=== PATIENT | male | born 1945 | race Caucasian/White ===

== ENCOUNTER 2019-08-28 09:26 | Outpatient (CLI) | payer OTHER, SELFPAY ==
[2019-08-28 10:49] LABS: Alanine Aminotransferase 18 U/L (4-50); Albumin Level 4.3 g/dL (3.5-5.1); Alkaline Phosphatase 68 U/L (38-126); Aspartate Amino Transferase 30 U/L (17-59); Blood Urea Nitrogen 28 mg/dL (9-20); Calcium 8.9 mg/dL (8.4-10.2); Carbon Dioxide 30 mmol/L (22-30); Chloride 103 mmol/L (98-107); Cholesterol 165 mg/dL (0-200); Estimated Glomerular Filt Rate > 60; Glucose 84 mg/dL (75-110); HDL Direct 49 mg/dL; Potassium 4.6 mmol/L (3.4-5.0); Sodium 139 mmol/L (137-145); Triglycerides 102 mg/dL (<150)
[2019-08-28 11:00] LABS: LDL Cholesterol Direct 92 mg/dL
[2019-08-28 11:16] LABS: Thyroid Stimulating Hormone 0.344 uIU/mL (0.465-4.680)
== END 2019-08-28 09:27 | disposition home or self-care (01) ==
PROVIDERS: PCP Emergency Medicine; Visit Provider Emergency Medicine
DX: E78.5 Hyperlipidemia, unspecified (principal); E05.90 Thyrotoxicosis, unspecified without thyrotoxic crisis or storm
CPT/HCPCS: 36415; 80053; 80061; 84443

== ENCOUNTER 2020-01-26 11:50 | Outpatient (CLI) | payer OTHER, SELFPAY ==
[2020-01-26 13:05] LABS: Thyroid Stimulating Hormone 0.175 uIU/mL (0.465-4.680)
== END 2020-01-26 11:51 | disposition home or self-care (01) ==
PROVIDERS: PCP Emergency Medicine; Visit Provider Emergency Medicine
DX: E05.90 Thyrotoxicosis, unspecified without thyrotoxic crisis or storm (principal)
CPT/HCPCS: 36415; 84443

== ENCOUNTER 2020-05-03 08:30 | Outpatient (CLI) | payer OTHER, SELFPAY ==
[2020-05-03 09:36] LABS: Free T4 Free Thyroxine 1.07 ng/mL (0.78-2.19); Thyroid Stimulating Hormone 0.502 uIU/mL (0.465-4.680)
[2020-05-05 06:33] LABS: Triiodothyronine T3 Free 3.2 pg/mL (2.3-4.2)
== END 2020-05-03 08:31 | disposition home or self-care (01) ==
PROVIDERS: PCP Emergency Medicine; Visit Provider Emergency Medicine
DX: E05.90 Thyrotoxicosis, unspecified without thyrotoxic crisis or storm (principal)
CPT/HCPCS: 36415; 84439; 84443; 84481

== ENCOUNTER → 2020-05-11 15:28 | Outpatient (CLI) | payer OTHER, SELFPAY ==
--- NOTE | ~2020-05-11 | XR_ITS ---
EXAMINATION: XR knee LT 2V DATE: 05/11/2020 15:42 INDICATION: Left knee pain and swelling. TECHNIQUE: 2 views of left knee were obtained. COMPARISON: None. FINDINGS: Bone alignment is normal. No fracture. There is mild tricompartmental osteoarthritis. There is a moderate-sized knee joint effusion. IMPRESSION: 1. Mild left knee osteoarthritis. 2. Moderate-sized left knee joint effusion. Reviewed, dictated and finalized at location A. [employer]
== END ==
PROVIDERS: PCP Emergency Medicine; Visit Provider Emergency Medicine
DX: S89.92XA Unspecified injury of left lower leg, initial encounter (principal); M17.12 Unilateral primary osteoarthritis, left knee; M25.462 Effusion, left knee
CPT/HCPCS: 73560

== ENCOUNTER 2020-11-04 08:57 | Outpatient (CLI) | payer OTHER, SELFPAY ==
[2020-11-04 09:35] LABS: Alanine Aminotransferase 19 U/L (4-50); Albumin Level 4.3 g/dL (3.5-5.1); Alkaline Phosphatase 70 U/L (38-126); Anion Gap 4 mmol/L (8-16); Aspartate Amino Transferase 31 U/L (17-59); Bilirubin,Total 1.4 mg/dL (0.2-1.3); Blood Urea Nitrogen 24 mg/dL (9-20); Calcium 9.1 mg/dL (8.4-10.2); Carbon Dioxide 26 mmol/L (22-30); Chloride 107 mmol/L (98-107); Estimated Glomerular Filt Rate 59; Glucose 91 mg/dL (65-110); Potassium 4.5 mmol/L (3.4-5.0); Sodium 137 mmol/L (137-145)
[2020-11-04 10:04] LABS: Prostate Specific Antigen 3.3 ng/mL (< OR = 4.0)
== END 2020-11-04 08:58 | disposition home or self-care (01) ==
LOC: ANHLAB 09:00
PROVIDERS: PCP Emergency Medicine; Visit Provider Emergency Medicine
DX: Z13.220 Encounter for screening for lipoid disorders (principal); Z12.5 Encounter for screening for malignant neoplasm of prostate
CPT/HCPCS: 36415; 80053; 84153; G0103

== ENCOUNTER 2021-09-09 15:50 | Inpatient (IN) | payer OTHER, SELFPAY ==
--- NOTE | ~2021-09-09 | NM_ITS ---
EXAMINATION: NM sharon stress w perfusion DATE: 09/15/2021 09:25 INDICATION: Abnormal EKG. Atrial fibrillation, ventricular tachycardia. TECHNIQUE: Rest images were obtained following intravenous administration of 10.1 mCi Tc99m tetrofosm in (Myoview). The patient was infused intravenously with Lexiscan (Regadenoson). Then, 23.3 mCi Tc99m tetrofosmin (Myoview) was administered intravenously, and stress images were obtained in supine posi tion. Data was reconstructed into short axis and horizontal and vertical long axis SPECT images. [place] d SPECT images were also obtained. COMPARISON: None. FINDINGS: Small region of mild decreased perfusion at the apical and apical lateral segment on the st ress images. Additional small region of equivocal decreased perfusion at the apical septal, mid anter oseptal and mid inferoseptal segments. The perfusion defects at both more severe and more extensive o n the rest images suggesting this may be artifactual although small infarcts cannot be excluded. No r eversible perfusion defects abnormality to suggest ischemia. There is normal left ventricular chambe r size, wall motion and ejection fraction. Left ventricular ejection fraction measures 54%. IMPRESSION: 1. Small mild perfusion defect at the apical and apical lateral segments and additional clinical data small mild perfusion defect at the apical septal anteroseptal, mid anteroseptal and mid inferoseptal segments on stress images which appears smaller and less severe than the perfusion defects on the re st images differential would include either infarct or attenuation artifact. No reversible ischemia. 2. Left ventricular ejection fraction measuring 54%. Reviewed, dictated and finalized at location A. IMPRESSION: 1. Small mild perfusion defect at the apical and apical lateral segments and ad ditional clinical data small mild perfusion defect at the apical septal anteros eptal, mid anteroseptal and mid inferoseptal segments on stress images which ap pears smaller and less severe than the perfusion defects on the rest images dif ferential would include either infarct or attenuation artifact. No reversible i schemia. 2. Left ventricular ejection fraction measuring 54%.
--- NOTE | ~2021-09-09 | MR_ITS ---
EXAMINATION: MR MRCP wo/w con/w 3D wo ind DATE: 09/11/2021 13:50 INDICATION: Right upper quadrant pain TECHNIQUE: Magnetic resonance imaging (MRI) of the abdomen was performed without and with intravenous contrast. Sequences included coronal T2-weighted SS-FSE ARC, coronal T2-weighted FS SS-FSE, coronal T2-weighted 2D FS FIESTA, Water:Coronal LAVA-Flex, sagittal T2-weighted SS-FSE ARC, axial SSFSE ARC, axial 3D DualEcho, axial DWI B=600, axial T1-weighted LAVA, FAT:Coronal LAVA-Flex, and coronal in and opposed phase LAVA-Flex. Thick-slab T2-weighted FRFSE-XL images were obtained for magnetic resonance cholangiopancreatography (MRCP). Maximum intensity projection 3-D reconstructions of the volumetric data were created by the technologist. Postcontrast sequences included a time course of axial T1-weig hted LAVA, FAT:Coronal LAVA-Flex, coronal in and opposed phase LAVA-Flex, and Water:Coronal LAVA-Flex . COMPARISON: CT, 09/09/2021 CONTRAST: Multihance, 17 cc FINDINGS: ABDOMEN MRI: There are small pleural effusions. There is a 2.0 x 1.9 cm cyst with thin septation in t he right hepatic lobe. The spleen and adrenal glands are normal. Stones are present in the nondistend ed gallbladder. There is a moderate amount of perihepatic fluid which tracks into the bilateral anter ior pararenal spaces as well as in the perihepatic and perisplenic spaces. The pancreas is mildly exp anded but appears to demonstrate uniform although decreased, enhancement. Cysts of the kidneys measur e up to 5.3 cm on the right. No abnormal enhancement is present after contrast administration. ABDOMEN MRCP: There is no intrahepatic or extrahepatic biliary dilatation. The pancreatic duct is not well visualized in the body and tail, likely due to pancreatic edema. There are no stones or strictu re of the common bile duct. IMPRESSION: 1. MRI findings consistent with acute interstitial edematous pancreatitis with acute peripancreatic f luid collection. 2. Cholelithiasis without evidence of cholecystitis. Reviewed, dictated and finalized at location A. IMPRESSION: 1. MRI findings consistent with acute interstitial edematous pancreatitis with acute peripancreatic fluid collection. 2. Cholelithiasis without evidence of cholecystitis.
--- NOTE | ~2021-09-09 | XR_ITS ---
XR chest 1V portable 09/14/2021 00:15 Indication: Shortness of breath Procedure: AP portable chest Comparison: 08/11/2013 Findings: Borderline heart size. Mild interstitial edema. Small left pleural effusion. There is ather osclerosis of the aorta. No pneumothorax. No acute osseous abnormality. Impression: 1: Mild interstitial edema with small left pleural effusion. Reviewed, dictated and finalized at location A. Impression: 1: Mild interstitial edema with small left pleural effusion.
--- NOTE | ~2021-09-09 | CT_ITS ---
EXAMINATION: CT abdomen pelvis w con DATE: 09/09/2021 17:05 INDICATION: Abdominal pain radiating to back. History kidney stones. TECHNIQUE: Computed tomography (CT) of the abdomen and pelvis was performed with 100 CC Omnipaque 300 intravenous contrast. Automated exposure control and iterative reconstruction technique were employe d. Exam dose: 486.40 mGy-cm total exam DLP. COMPARISON: None. FINDINGS: Bilateral peripheral 4 mm middle lobe nodule. Calcified middle lobe pulmonary granuloma Mild discoid atelectasis in both lower lobes. Mild to moderate emphysematous changes. Normal heart size. Coronary artery calcifications. No pericardial effusion. Cholelithiasis is noted, including 1.8 cm calcified stone in a phrygian cap. Gallbladder wall thickness is within normal limit s. There is however mild pericholecystic fluid or fat stranding which may indicate acute cholecystiti s. Clinical correlation is advised. Radionuclide hepatobiliary scan may be of assistance in diagnosis of acute cholecystitis if clinically appropriate. There is hepatic steatosis. Approximately 1.8 cm hepatic cyst. Normal splenic size. There is diffuse peripancreatic fluid and fat stranding, compatible with acute uncomplicated intersti tial pancreatitis. There are several pancreatic calcifications consistent with chronic pancreatitis. No bile duct or pancreatic duct dilatation. Normal morphology of the adrenal glands. 5.5 cm posterior exophytic right renal cyst; additional 1.5 cm, 7 mm and 2.7 cm and additional very s mall right renal cysts. Several left renal cysts, including one larger 1.9 cm cyst. No urinary tract calculus or hydroureteronephrosis. Prominent prostate enlargement and calcifications. The urinary bladder appears unremarkable. There is calcification of the abdominal aorta and iliac arteries. No abdominal aortic aneurysm. No in traperitoneal or retroperitoneal or pelvic mass lesion or adenopathy or ascites. There are numerous diverticula of the sigmoid and to a lesser extent descending colon; no CT evidence of diverticulitis. The appendix is not visualized. No bowel obstruction or intraperitoneal free air. Small fat-containing right inguinal hernia. IMPRESSION: Acute uncomplicated interstitial pancreatitis Cholelithiasis; cannot exclude acute cholecystitis; clinical correlation is advised. Radionuclide hep atic there is scan may be of assistance. Hepatic steatosis 1.8 cm hepatic cyst Bilateral renal cysts Diverticulosis of left colon; no CT evidence of diverticulitis Prostate enlargement and calcifications Mild fat-containing right inguinal hernia 4 mm middle lobe nodule Mild to moderate emphysema Reviewed, dictated and finalized at Location A. Reviewed, dictated and finalized at location A. IMPRESSION: Acute uncomplicated interstitial pancreatitis Cholelithiasis; cannot exclude acute cholecystitis; clinical correlation is adv ised. Radionuclide hepatic there is scan may be of assistance. Hepatic steatosis 1.8 cm hepatic cyst Bilateral renal cysts Diverticulosis of left colon; no CT evidence of diverticulitis Prostate enlargement and calcifications Mild fat-containing right inguinal hernia 4 mm middle lobe nodule Mild to moderate emphysema
[2021-09-09 16:06] VITALS: BP 179/130; PULSE 82; RESP 16; TEMP 35.8; O2SAT 100
[2021-09-09 16:32] LABS: Basophils Absolute Auto 0.1 K/mm3 (0.0-0.1); Basophils Percent Auto 0.4 % (0.2-1.2); Eosinophils Percent Auto 0.3 % (0-4.4); Hematocrit 54.3 % (42.0-52.0); Hemoglobin 18.4 g/dL (14.0-18.0); Immature Granulocyte Absolute 0.05 K/mm3 (0.00-0.031); Immature Granulocyte Percent A 0.4 % (0-0.5); Lymphocytes Percent Auto 7.7 % (18.3-44.2); Mean Corpuscular HGB Conc 33.9 g/dl (32-36); Mean Corpuscular Hemoglobin 31.6 pg (26-34); Mean Corpuscular Volume 93.3 fl (80-100); Mean Platelet Volume 11.1 fl (7.4-10.4); Monocytes Absolute Auto 0.7 K/mm3 (0.1-0.6); Monocytes Percent Auto 6.2 % (2.6-8.5); Neutrophils Absolute Auto 9.9 K/mm3 (1.3-6.7); Platelet Count Result 173 k/mm3 (150-375); Red Blood Count 5.82 M/mm3 (4.6-6.20); Red Cell Distribution Width 13.7 % (11.5-14.5); White Blood Count 11.7 K/mm3 (4.5-10.0)
[2021-09-09 16:35] VITALS: BP 165/98; PULSE 91; RESP 20; TEMP 36.3; O2SAT 99
[2021-09-09 16:38] VITALS: TEMP 36.3
[2021-09-09 16:43] LABS: Appearance Urine Clear (Clear); Bilirubin Urine 3+ (Negative); Blood Urine Trace-lysed (Negative); Color Urine Amber (Yellow); Glucose Urine UA Trace mg/dL (Negative); Ketones Urine 1+ mg/dL (Negative); Leukocyte Esterase Ur Negative LEU/UL (Negative); Nitrate Urine Negative (Negative); Protein Urine 2+ mg/dL (Negative); Specific Grav Ur >= 1.030 (1.001-1.035); Urobilinogen Urine 0.2 mg/dL (<2.0)
[2021-09-09] MEDS: SODIUM CHLORIDE 0.9% IV 1,000 ML 999 ML IV CONT (16:44)
[2021-09-09] MEDS: ONDANSETRON INJ 4 MG/2 ML VIAL IV PUSH (16:44)
[2021-09-09 16:45] LABS: Alanine Aminotransferase 350 U/L (6-50); Albumin Level 4.5 g/dL (3.5-5.1); Alkaline Phosphatase 208 U/L (38-126); Anion Gap 9 mmol/L (8-16); Aspartate Amino Transferase 267 U/L (17-59); Bilirubin,Total 8.2 mg/dL (0.2-1.3); Blood Urea Nitrogen 22 mg/dL (9-20); Calcium 9.3 mg/dL (8.4-10.2); Carbon Dioxide 26 mmol/L (22-30); Chloride 105 mmol/L (98-107); Estimated CRCL calculation 48 ml/min; Estimated Glomerular Filt Rate 54; Glucose 176 mg/dL (65-110); Potassium 4.2 mmol/L (3.4-5.0); Sodium 140 mmol/L (137-145)
[2021-09-09] MEDS: MORPHINE SULFATE (*CRX) 4 MG/ML INJ IV PUSH ×2 (16:45→18:42)
--- NOTE | 2021-09-09 17:00 | ED.ABDPAIN ---
HPI - Abdominal Pain General Chief Complaint: Abdominal Pain Stated Complaint: flank pain Time Seen by Provider: 09/09/21 16:27 Source: RN notes reviewed History of Present Illness HPI narrative: Patient presents emergency room from home for abdominal pain. Patient states symptoms began this morning. The pain is located in the mid abdomen and radiates into the bilateral back pain described as aching in nature states has been associated with nausea and vomiting. Denies any fevers or chills chest pain shortness of breath diarrhea or any other symptoms. States he not taking medication for the pain at home states he does have a history of previous kidney stones and this feels similar to past kidney stones Related Data Home Medications Medication Instructions Recorded Confirmed apixaban 5 mg tablet (Eliquis) 5 mg PO BID 05/05/19 11/10/20 aspirin 81 mg tablet,delayed 81 mg PO DAILY 05/05/19 11/10/20 release (Adult Low Dose Aspirin) Allergies Allergy/AdvReac Type Severity Reaction Status Date / Time No Known Allergies Allergy Unverified 01/29/15 13:27 Review of Systems Review of Systems: Gen.: Denies fevers or chills ENT: Denies congestion Respiratory: Denies shortness of breath or cough CV: Denies chest pain or palpitations GI: See HPI denies burning, urgency, frequency or hematuria Musculoskeletal: Denies back pain or muscle pain Neuro: Denies numbness, tingling, weakness or focal weakness Skin: Denies rash Except as documented, all other systems reviewed and negative [facility] Past Medical History Medical History (Updated 09/09/21 @ 17:44 by Benito Sheppard DO) Afib Screening PSA (prostate specific antigen) Family History Family History Mother Family history of malignant neoplasm of uterus, Onset Age: 52 Patient's mother is Father Patient's father is , Onset Age: 84 Acute myocardial infarction, Onset Age: 84 Social History Social History Smoking status: Former smoker Alcohol intake: never Exam Narrative: APPEARANCE: No acute distress, nontoxic, resting in bed HEENT: Normocephalic, atraumatic, OMM RESPIRATORY: No respiratory distress, clear to auscultation bilaterally with no rhonchi wheezing or rales CARDIOVASCULAR: RRR s murmur ABDOMINAL: Soft nondistended diffusely tender to palpation no rebound or guarding no flank tenderness MUSCULOSKELETAl: Moves all extremities. No clubbing, cyanosis or edema. NEURO: Awake and alert. Following commands, speech normal, no focal deficits SKIN:: Warm, dry. 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 Baker presentation work-up agrees with admission at this time Discussed with Dr. Ronquillo agrees with admission with patient started on Zosyn request GI consult Discussed Dr. Alvarez agrees with consult Discussed with patient and family results of workup and diagnosis. Discussed need for admission. Patient and family understand and agree to current treatment plan Vital Signs Vital signs: Vital Signs Temperature 96.5 F L 09/09/21 16:06 Pulse Rate 82 09/09/21 16:06 Respiratory Rate 16 09/09/21 16:06 Blood Pressure 179/130 H 09/09/21 16:06 Pulse Oximetry 100 09/09/21 16:06 Oxygen Delivery Room Air 09/09/21 16:06 Temperature 97.4 F L 09/09/21 16:38 Pulse Rate 91 09/09/21 16:35 Respiratory Rate 20 09/09/21 16:35 Blood Pressure 165/98 H 09/09/21 16:35 Pulse Oximetry 99 09/09/21 16:35 Oxygen Delivery Room Air 09/09/21 16:06 MDM - Abdominal Pain Lab Data Result diagrams: 09/09/21 16:19 09/09/21 16:19
[2021-09-09 17:01] LABS: Calcium Oxalate Crystals Urine Present /hpf; Mucus Urine Rare /lpf; RBC Urine 0-2 /hpf (0-2); Squamous Epithelial Cell Urine Rare /hpf (Few); WBC Urine 0-3 /hpf
[2021-09-09 17:02] LABS: Add Urine Microscopic? YES
--- NOTE | 2021-09-09 17:03 | PC.NURSE ---
malathi alanis. friend/ ride
[2021-09-09 17:37] LABS: Lipase 17273 U/L (23-300)
[2021-09-09 17:48] LABS: Ethanol < 10 mg/dL (<10)
--- NOTE | 2021-09-09 18:06 | PC.NURSE ---
Patient care report called to YE Rossi. All questions answered at this time.
--- NOTE | 2021-09-09 18:15 | PM.IMHP ---
H&P: HPI History of Present Illness Date/Time: 09/09/21 18:15 Chief Complaint: Abdominal pain. Narrative: This is a very pleasant 75-year-old male with history of kidney stones and paroxysmal atrial fibrillation on anticoagulation who presented to the emergency department via private vehicle for evaluation of abdominal pain. He was in his usual state of health this morning and in fact played pickleball mid morning. After the game he had pancakes for breakfast and within a couple of hours he developed sudden onset of diffuse upper abdominal pain. It has been constant since the outset however it does come and go in waves of intensity. The pain is described as aching though it is occasionally sharp and shooting. He has not been able to identify any significant aggravating or alleviating factors. Associated symptoms include nausea, vomiting, and dry heaves. Initially he thought that he may be passing another kidney stone as the pain is similar however CT of the abdomen and pelvis instead showed acute pancreatitis and cholelithiasis and he is being admitted in this setting. He has no history of gallbladder disease or pancreatitis. He denies significant alcohol use. Review of Systems Review of Systems: Twelve systems were reviewed. No fever, chills, or sweats. He denies chest pain, pleuritic pain, and palpitations. No pleuritic pain or shortness of breath. He denies hematemesis. He denies significant indigestion symptoms but has had some belching and abdominal distension today. Urine has been a darker over the last couple of days but he denies dysuria and hematuria. Except as documented, all other systems were reviewed and are negative. [facility] Past Medical History Medical History (Updated 09/09/21 @ 20:33 by Lili Flores PA-C) Chronic anticoagulation Kidney stones Paroxysmal atrial fibrillation Surgical History Surgical History (Updated 09/09/21 @ 20:29 by Lili Flores PA-C) History of appendectomy History of colonoscopy with polypectomy History of vasectomy Family History Family History Mother Family history of malignant neoplasm of uterus, Onset Age: 52 Patient's mother is Father Patient's father is , Onset Age: 84 Acute myocardial infarction, Onset Age: 84 Social History Social History (Updated 09/09/21 @ 20:30 by Lili Flores PA-C) Social History: Surrogate decision maker: Mikayla Lema, sister. Code status: Full code. Smoking status: Former smoker Alcohol intake: current Alcohol use details: Rare alcohol use in moderation. Substance use: never Living arrangements: alone Occupation/Education: retired Spiritual care concerns: No Meds Home Medications and Allergies Home Medications Medication Instructions Recorded Confirmed Type apixaban 5 mg tablet (Eliquis) 5 mg PO BID 05/05/19 11/10/20 History Allergies Allergy/AdvReac Type Severity Reaction Status Date / Time No Known Allergies Allergy Unverified 09/09/21 18:36 Vital Signs Vital Signs - 24 hr 09/09/21 16:06 09/09/21 16:35 09/09/21 16:38 Temperature 96.5 F L 97.4 F L 97.4 F L Pulse Rate 82 91 Respiratory Rate 16 20 Blood Pressure 179/130 H 165/98 H Pulse Oximetry 100 99 Oxygen Delivery Room Air 09/09/21 18:35 09/09/21 19:44 Temperature 97.6 F 97.2 F L Pulse Rate 67 125 H Respiratory Rate 18 18 Blood Pressure 160/108 H 179/98 H Pulse Oximetry 100 93 Oxygen Delivery Exam Narrative: General: Well-developed male standing at the side of the bed. He appears uncomfortable due to pain. Weight: 84 kg. BMI: 25.9. HEENT: PERRL, EOMI. Sclerae anicteric. Tacky mucous membranes. Neck: Supple. Respiratory: Lungs are clear to auscultation bilaterally. Cardiovascular: Irregularly irregular rate and rhythm. Gastrointestinal: Abdomen is soft and nondistended with positive bowel sounds. He
--- NOTE | 2021-09-09 18:20 | ADMGEN ---
This patient, Memo Soto, was admitted to Medical Room 258-. Patient/family oriented to hospital policies and general routines including ID bracelet, bed and alarms, visiting hours, pain management, procedures, bathroom and other care routines, personal items, smoking policy, room service/diet, and visiting hours. Information on how to activate the Rapid Response Team has been discussed. Patient/Family are encouraged to report perceived risks to care and to ask questions if they do not understand what they are told or what they should do.
[2021-09-09] MEDS: SODIUM CHLORIDE 0.9% IV 1,000 ML 150 ML IV CONT (18:27)
[2021-09-09 18:35] VITALS: BP 160/108; PULSE 67; RESP 18; TEMP 36.4; O2SAT 100
[2021-09-09 19:44] VITALS: BP 179/98; PULSE 125; RESP 18; TEMP 36.2; O2SAT 93
[2021-09-09] MEDS: MORPHINE SULFATE (*CRX) 2 MG/ML INJ IV PUSH (22:35)
[2021-09-10] MEDS: SODIUM CHLORIDE 0.9% IV 1,000 ML 150 ML IV CONT ×3 (01:40→17:44)
[2021-09-10] MEDS: hydrALAZINE HCL 20 MG/ML VIAL 10 MG IV PUSH ×3 (03:54→18:45)
[2021-09-10 04:19] VITALS: BP 180/118; PULSE 70; RESP 17; TEMP 37.2; O2SAT 97
[2021-09-10] MEDS: SIMETHICONE 80 MG TAB.CHEW PO ×2 (04:35→22:46)
[2021-09-10 05:40] LABS: Albumin Level 4.5 g/dL (3.5-5.1); Alkaline Phosphatase 214 U/L (38-126); Anion Gap 10 mmol/L (8-16); Aspartate Amino Transferase 178 U/L (17-59); Bilirubin,Total 6.3 mg/dL (0.2-1.3); Blood Urea Nitrogen 22 mg/dL (9-20); Calcium 8.5 mg/dL (8.4-10.2); Carbon Dioxide 20 mmol/L (22-30); Chloride 110 mmol/L (98-107); Estimated CRCL calculation 56 ml/min; Estimated Glomerular Filt Rate > 60; Glucose 154 mg/dL (65-110); Magnesium 1.8 mg/dL (1.6-2.3); Potassium 4.4 mmol/L (3.4-5.0); Sodium 140 mmol/L (137-145)
[2021-09-10] MEDS: MORPHINE SULFATE (*CRX) 2 MG/ML INJ IV PUSH ×5 (05:58→22:46)
[2021-09-10 05:59] LABS: Basophils Percent Auto 0.1 % (0.2-1.2); Hematocrit 55.8 % (42.0-52.0); Hemoglobin 18.5 g/dL (14.0-18.0); Immature Granulocyte Absolute 0.06 K/mm3 (0.00-0.031); Immature Granulocyte Percent A 0.4 % (0-0.5); Lymphocytes Percent Auto 2.5 % (18.3-44.2); Mean Corpuscular HGB Conc 33.2 g/dl (32-36); Mean Corpuscular Hemoglobin 31.6 pg (26-34); Mean Corpuscular Volume 95.4 fl (80-100); Mean Platelet Volume 11.3 fl (7.4-10.4); Monocytes Absolute Auto 0.8 K/mm3 (0.1-0.6); Monocytes Percent Auto 4.9 % (2.6-8.5); Neutrophils Absolute Auto 14.8 K/mm3 (1.3-6.7); Neutrophils Percent Auto 92.1 % (45.5-73.1); Nucleated Red Blood Cells Perc 0.1 % (0.0-0.2); Platelet Count Result 186 k/mm3 (150-375); Red Blood Count 5.85 M/mm3 (4.6-6.20); Red Cell Distribution Width 13.9 % (11.5-14.5)
[2021-09-10 06:15] LABS: Thyroid Stimulating Hormone Reflex 0.037 uIU/mL (0.465-4.68)
[2021-09-10 06:18] VITALS: BP 162/90
[2021-09-10 06:30] LABS: Hepatitis B Surface Antigen Negative (Negative)
[2021-09-10 06:31] LABS: Alanine Aminotransferase 277 U/L (6-50)
[2021-09-10 06:38] LABS: HAV RESULT Negative (Negative)
[2021-09-10 06:40] LABS: Lipase 5279 U/L (23-300)
[2021-09-10 06:43] LABS: Hepatitis C Virus Antibody Negative (Negative)
[2021-09-10 07:27] LABS: Hemoglobin A1C 5.7 % (<5.7)
[2021-09-10 07:37] LABS: Free T4 Free Thyroxine Reflex 1.52 ng/dL (0.78-2.19)
[2021-09-10 10:09] LABS: Hepatitis B Core IgM Result Negative (Negative)
[2021-09-10 10:26] LABS: Total Triiodothyronine (T3) 1.12 NG/ML (0.97-1.69)
--- NOTE | 2021-09-10 13:29 | WPDGICN ---
Assessment and Plan Assessment and plan (1) Gallstone pancreatitis: Code(s): K85.10 - Biliary acute pancreatitis without necrosis or infection Status: Acute Assessment and Plan: presentation consistent of GS pancreatitis no obvious bile duct dilation but given elevated bilirubin will get MRCP to assess biliary duct to rule out stones, etc could be also from cholecystitis, surgery to evaluate on antibiotics, feeling better but still some pain (2) Elevated liver enzymes: Code(s): R74.8 - Abnormal levels of other serum enzymes Status: Acute Assessment and Plan: denies etoh GB/biliary source trend lft's hepatitis panel negative (3) Transaminitis: Code(s): R74.01 - Elevation of levels of liver transaminase levels Status: Acute (4) Cholelithiasis: Code(s): K80.20 - Calculus of gallbladder without cholecystitis without obstruction Status: Acute (5) Chronic anticoagulation: 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 Status: Acute Assessment and Plan: hold anticoagulation since patient will require intervention (6) Acute cholecystitis: Code(s): K81.0 - Acute cholecystitis Status: Acute (7) Leukocytosis: Code(s): D72.829 - Elevated white blood cell count, unspecified Status: Acute Assessment and Plan: on abx (8) Paroxysmal atrial fibrillation: Code(s): I48.0 - Paroxysmal atrial fibrillation Status: Acute GI Consult Note Consult date/time: 09/10/21 13:29 GS pancreatitis, elevated liver enzymes HPI: Memo Soto is a 75 year old male with?history of kidney stones and paroxysmal atrial fibrillation on eliquis who presented to the emergency department via private vehicle for evaluation of new onset of severe abdominal pain. Yesterday he played pickleball, then had pancakes for breakfast and within a couple of hours he developed severe pain in upper abdominal pain with radiation to his back, pain was different location from his regular kidney stone. Pain was sharp and shooting, also had nausea and vomiting. Blood work suggestive of gallstone pancreatitis with lipase 17k, bili 8 and elevated transaminases, denies alcohol use or previous episode of pancreatitis.? CT scan reviewed and showed acute uncomplicated interstitial pancreatitis, cholelithiasis, hepatic steatosis, diverticulosis of left colon. Never had EGD, had colonoscopy about 5 years ago. Review of Systems Constitutional: Constitutional: Denies difficulty sleeping Eyes: Eyes: Reports no additional eye complaints ENT: Reports Normal hearing present Cardiovascular: Cardiovascular: Denies chest pain Respiratory: Respiratory: Denies chest congestion Gastrointestinal: Gastrointestinal: Reports abdominal pain, Reports nausea and Reports vomiting Genitourinary: Comments: dark urine Musculoskeletal: Musculoskeletal: Reports back pain Integumentary/Breasts: Skin/Breast: Denies dry skin Neurologic: Denies Abnormal speech present Psychiatric: Psychiatric: Denies anxiety [facility] Past Medical History Medical History (Updated 09/10/21 @ 13:38 by Davis Gordon MD) Chronic anticoagulation Elevated liver enzymes Gallstone pancreatitis Kidney stones Leukocytosis Paroxysmal atrial fibrillation Surgical History Surgical History (Updated 09/09/21 @ 20:29 by Lili Flores PA-C) History of appendectomy History of colonoscopy with polypectomy History of vasectomy Family History Family History Mother Family history of malignant neoplasm of uterus, Onset Age: 52 Patient's mother is Father Patient's father is , Onset Age: 84 Acute myocardial infarction, Onset Age: 84 Social History Social History (Updated 09/09/21 @ 20:30 by Lili Flores PA-C) Social History: Surrogate decision maker: Ana
[2021-09-10 14:00] VITALS: BP 139/116; PULSE 45; RESP 20; TEMP 36.7; O2SAT 98
--- NOTE | 2021-09-10 15:18 | PM.CNGS ---
Assessment and Plan Assessment and plan (1) Gallstone pancreatitis: Code(s): K85.10 - Biliary acute pancreatitis without necrosis or infection Status: Acute Assessment and Plan: I have reviewed the CT and discussed the findings with the patient. He has evidence of acute pancreatitis. He does not have a prior history of heavy alcohol use, therefore gallbladder seems the most likely origin. Continue NPO and IV hydration to allow pancreatitis to resolve. Discussed with patient that I would recommend proceeding with laparoscopic cholecystectomy once pancreatitis has resolved. He was on blood thinners, therefore surgery will have to be delayed 1-2 days regardless. Await further evaluation by GI for elevated liver enzymes and hyperbilirubinemia. (2) Cholelithiasis: Code(s): K80.20 - Calculus of gallbladder without cholecystitis without obstruction Status: Acute (3) Elevated liver enzymes: Code(s): R74.8 - Abnormal levels of other serum enzymes Status: Acute (4) Paroxysmal atrial fibrillation: Code(s): I48.0 - Paroxysmal atrial fibrillation Status: Acute History of Present Illness Consult details Consult date: 09/10/21 Reason for consult: other (Gallstone pancreatitis) Requesting physician: Benito Sheppard DO Narrative: This is a 75-year-old man who I am asked to see for gallstone pancreatitis. He presented to the emergency department on 09/09/2021 with acute onset of upper abdominal pain radiated to the back. He states this started around noon yesterday. He had played pickleball the morning and then ate breakfast afterwards. Couple hours later he started having this pain. He thought it might be a kidney stone because he has had kidney stones in the past. He was experiencing some nausea and vomiting as well. He denied any fever or chills. He went to [facility] admission leak, but then was directed to the emergency department for further workup. He does not recall any symptoms like this in the past, but does state that he has had a little more bloating and gas over the past month. A CT in the emergency department showed evidence of acute interstitial pancreatitis and cholelithiasis. The patient was then admitted for further treatment. Review of Systems Review of Systems: All systems reviewed & are unremarkable except as noted in HPI and below Constitutional: Constitutional: Denies chills and Denies fever(s) Eyes: Eyes: Denies change in vision ENT: Denies hearing loss, Denies neck pain and Denies sore throat Cardiovascular: Cardiovascular: Denies chest pain and Denies dyspnea Respiratory: Respiratory: Denies cough, Denies dyspnea and Denies wheezing Gastrointestinal: Gastrointestinal: Reports as per HPI Genitourinary: Genitourinary: Denies hematuria and Denies dysuria Musculoskeletal: Musculoskeletal: Denies arthralgias, Denies joint swelling and Denies neck pain Allergic/Immunologic: Allergic/Immunologic: Denies wheezing [facility] Past Medical History Medical History Chronic anticoagulation Elevated liver enzymes Gallstone pancreatitis Kidney stones Leukocytosis Paroxysmal atrial fibrillation Surgical History Surgical History History of appendectomy History of colonoscopy with polypectomy History of vasectomy Family History Family History Mother Family history of malignant neoplasm of uterus, Onset Age: 52 Patient's mother is Father Patient's father is , Onset Age: 84 Acute myocardial infarction, Onset Age: 84 Social History Social History Social History: Surrogate decision maker: Mikaylamisty Lema, sister. Code status: Full code. Smoking status: Former smoker Alcoh
--- NOTE | 2021-09-10 15:48 | P.PNIM_ITS ---
Progress Note: A&P Assessment and Plan (1) Acute pancreatitis: Code(s): K85.90 - Acute pancreatitis without necrosis or infection, unspecified Status: Acute Assessment and Plan: Acute uncomplicated interstitial pancreatitis secondary to gallstones * Lipase 17,000 on presentation. Improved to 5000 today * Continue NPO diet * Continue IV fluid rehydration * Antiemetics and analgesics available as needed * Appreciate general surgery and Gastroenterology consultation * Plan for MRCP for biliary duct evaluation (2) Cholelithiasis: Code(s): K80.20 - Calculus of gallbladder without cholecystitis without obstruction Status: Acute Assessment and Plan: Cholelithiasis with possible cholecystitis. * Appreciate general surgery consultation * Planning for laparoscopic cholecystectomy upon resolution of pancreatitis * Eliquis on hold in preparation of procedure * Continue IV Zosyn (3) Transaminitis: Code(s): R74.01 - Elevation of levels of liver transaminase levels Status: Acute Assessment and Plan: Secondary to above * LFTs with downward trend * Total bili improved to 6.3 today * Monitor closely * MRCP pending (4) Hyperglycemia: Code(s): R73.9 - Hyperglycemia, unspecified Status: Acute Assessment and Plan: Likely secondary to acute illness * A1c is 5.7 * Continue to monitor fasting glucose on daily BMP (5) Paroxysmal atrial fibrillation: Code(s): I48.0 - Paroxysmal atrial fibrillation Status: Acute Assessment and Plan: Rate is controlled * Eliquis is on hold for procedure * Resume when clinically appropriate (6) Elevated blood pressure reading: Code(s): R03.0 - Elevated blood-pressure reading, without diagnosis of hypertension Status: Acute Assessment and Plan: Blood pressure has been elevated during admission * Patient has no history of hypertension and is not on antihypertensives * Suspect this is worsened due to pain * P.r.n. hydralazine as needed for systolic BP >170 or diastolic BP >100 * Monitor BP trends closely. May need to consider addition of p.o. antihypertensive if BP remains elevated with appropriate pain control Subjective Date/time seen: 09/10/21 15:48 Interval history: Date of service: 09/10/2021 Memo Soto is a 75-year-old male with a history of paroxysmal atrial fibrillation on chronic anticoagulation and kidney stones who is seen in follow- up for gallstone pancreatitis. He is feeling better today. His pain has improved. He was previously endorsing epigastric pain that radiated to the back. His back pain has resolved today but he does still have some epigastric discomfort. His pain is mostly in the mid abdomen that he describes as a stabbing pain that has been up to about 8/10 today but at this time is more comfortable about 4/10. He feels that his skin in eyes appear yellow and his urine has been a bright yellow color. He denies nausea but endorses dry heaves and belching. He is passing flatus. He had a regular bowel movement yesterday afternoon. He endorses an overall discomfort. He is concerned about not being able to eat anything. He denies shortness breath, cough, or chest pain. He is concerned about being in the hospital and being away from his dog. Review of Systems Review of Systems: All systems reviewed & are unremarkable except as noted in HPI and below Exam Narrative: General: Well-nourished, well-appearing 75-year-old male, si
--- NOTE | 2021-09-10 15:48 | PM.IMPN ---
Progress Note: A&P Assessment and Plan (1) Acute pancreatitis: Code(s): K85.90 - Acute pancreatitis without necrosis or infection, unspecified Status: Acute Assessment and Plan: Acute uncomplicated interstitial pancreatitis secondary to gallstones Lipase 17,000 on presentation. Improved to 5000 today Continue NPO diet Continue IV fluid rehydration Antiemetics and analgesics available as needed Appreciate general surgery and Gastroenterology consultation Plan for MRCP for biliary duct evaluation (2) Cholelithiasis: Code(s): K80.20 - Calculus of gallbladder without cholecystitis without obstruction Status: Acute Assessment and Plan: Cholelithiasis with possible cholecystitis. Appreciate general surgery consultation Planning for laparoscopic cholecystectomy upon resolution of pancreatitis Eliquis on hold in preparation of procedure Continue IV Zosyn (3) Transaminitis: Code(s): R74.01 - Elevation of levels of liver transaminase levels Status: Acute Assessment and Plan: Secondary to above LFTs with downward trend Total bili improved to 6.3 today Monitor closely MRCP pending (4) Hyperglycemia: Code(s): R73.9 - Hyperglycemia, unspecified Status: Acute Assessment and Plan: Likely secondary to acute illness A1c is 5.7 Continue to monitor fasting glucose on daily BMP (5) Paroxysmal atrial fibrillation: Code(s): I48.0 - Paroxysmal atrial fibrillation Status: Acute Assessment and Plan: Rate is controlled Eliquis is on hold for procedure Resume when clinically appropriate (6) Elevated blood pressure reading: Code(s): R03.0 - Elevated blood-pressure reading, without diagnosis of hypertension Status: Acute Assessment and Plan: Blood pressure has been elevated during admission Patient has no history of hypertension and is not on antihypertensives Suspect this is worsened due to pain P.r.n. hydralazine as needed for systolic BP >170 or diastolic BP >100 Monitor BP trends closely. May need to consider addition of p.o. antihypertensive if BP remains elevated with appropriate pain control Subjective Date/time seen: 09/10/21 15:48 Interval history: Date of service: 09/10/2021 Memo Soto is a 75-year-old male with a history of paroxysmal atrial fibrillation on chronic anticoagulation and kidney stones who is seen in follow-up for gallstone pancreatitis. He is feeling better today. His pain has improved. He was previously endorsing epigastric pain that radiated to the back. His back pain has resolved today but he does still have some epigastric discomfort. His pain is mostly in the mid abdomen that he describes as a stabbing pain that has been up to about 8/10 today but at this time is more comfortable about 4/10. He feels that his skin in eyes appear yellow and his urine has been a bright yellow color. He denies nausea but endorses dry heaves and belching. He is passing flatus. He had a regular bowel movement yesterday afternoon. He endorses an overall discomfort. He is concerned about not being able to eat anything. He denies shortness breath, cough, or chest pain. He is concerned about being in the hospital and being away from his dog. Review of Systems Review of Systems: All systems reviewed & are unremarkable except as noted in HPI and below Exam Narrative: General: Well-nourished, well-appearing 75-year-old male, sitting up in bed, comfortable, NARD Neuro: awake, alert and oriented x4, speech clear, no focal neuro deficits noted HEENMT: normocephalic, atraumatic, EOMI, bilateral scleral icterus Respiratory: clear to auscultation bilaterally, nonlabored breathing Cardio: regular rate, regular rhythm with S1-S2 Abdomen: nondistended, normoactive bowel sounds, soft, tender to palpation in mid epigastric region, no rigidity or guarding Extremities: no edema
[2021-09-10 19:38] VITALS: BP 155/100; PULSE 78; RESP 18; TEMP 36.6; O2SAT 96
[2021-09-11 04:07] VITALS: BP 149/100; PULSE 71; RESP 16; TEMP 36.3; O2SAT 99
[2021-09-11] MEDS: SODIUM CHLORIDE 0.9% IV 1,000 ML 100 ML IV CONT ×2 (04:52→17:26)
[2021-09-11] MEDS: MORPHINE SULFATE (*CRX) 2 MG/ML INJ IV PUSH ×5 (04:58→23:38)
[2021-09-11 05:36] LABS: Hematocrit 56.5 % (42.0-52.0); Hemoglobin 17.9 g/dL (14.0-18.0); Mean Corpuscular HGB Conc 31.7 g/dl (32-36); Mean Corpuscular Hemoglobin 30.9 pg (26-34); Mean Corpuscular Volume 97.4 fl (80-100); Mean Platelet Volume 11.4 fl (7.4-10.4); Platelet Count Result 163 k/mm3 (150-375); Red Cell Distribution Width 14.9 % (11.5-14.5); White Blood Count 22.9 K/mm3 (4.5-10.0)
[2021-09-11 05:55] LABS: Albumin Level 4.5 g/dL (3.5-5.1); Alkaline Phosphatase 173 U/L (38-126); Anion Gap 7 mmol/L (8-16); Aspartate Amino Transferase 109 U/L (17-59); Bilirubin,Total 6.4 mg/dL (0.2-1.3); Blood Urea Nitrogen 29 mg/dL (9-20); Calcium 8.5 mg/dL (8.4-10.2); Carbon Dioxide 23 mmol/L (22-30); Chloride 109 mmol/L (98-107); Estimated CRCL calculation 67 ml/min; Estimated Glomerular Filt Rate > 60; Glucose 133 mg/dL (65-110); Potassium 4.1 mmol/L (3.4-5.0); Sodium 139 mmol/L (137-145)
[2021-09-11 06:07] LABS: Alanine Aminotransferase 180 U/L (6-50)
--- NOTE | 2021-09-11 07:52 | PC.NURSE ---
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
[2021-09-11 08:27] LABS: Lipase 1229 U/L (23-300)
--- NOTE | 2021-09-11 09:28 | PM.PNGS ---
Progress Note: A&P Assessment and Plan (1) Gallstone pancreatitis: Code(s): K85.10 - Biliary acute pancreatitis without necrosis or infection Status: Acute Assessment and Plan: WBC still increasing but lipase slightly improved. Pain slightly improved as well. Would benefit to have MRCP or ERCP to evaluate for common bile duct occlusion given his ongoing elevated liver enzymes and leukocytosis. Okay for clear liquid diet from my standpoint if okay with GI (2) Cholelithiasis: Code(s): K80.20 - Calculus of gallbladder without cholecystitis without obstruction Status: Acute Assessment and Plan: Eventual laparoscopic cholecystectomy, but will await resolution pancreatitis 1st. Patient may also be developing an ileus, which will delay when it will be safe to proceed with surgery. (3) Elevated liver enzymes: Code(s): R74.8 - Abnormal levels of other serum enzymes Status: Acute (4) Paroxysmal atrial fibrillation: Code(s): I48.0 - Paroxysmal atrial fibrillation Status: Acute Assessment and Plan: Eliquis on hold. Subjective Subjective Date/Time Seen: 09/11/21 09:28 Interval history: Pain slightly improved this morning. States he could not tolerate laying down for MRCP yesterday due to the pain. Feels bloated and wants a suppository to try to help bowels move. Last bowel movement was 2 days ago. Exam GI: Inspection: distended GI Palp: Yes Soft to palpation, Yes Tenderness to palpation present (GI) (Epigastric and right upper quadrant) and No Guarding due to palpation present (GI) Objective Data Vital Signs Vital Signs: Vital Signs - 24 hr 09/10/21 14:00 09/10/21 19:38 09/10/21 20:00 Temperature 36.7 C 36.6 C Pulse Rate 45 L 78 Respiratory Rate 20 18 Blood Pressure 139/116 H 155/100 H Pulse Oximetry 98 96 Oxygen Delivery Room Air 09/11/21 04:07 Temperature 36.3 C L Pulse Rate 71 Respiratory Rate 16 Blood Pressure 149/100 H Pulse Oximetry 99 Oxygen Delivery Intake/Output Intake/Output: Intake & Output 09/08/21 09/09/21 09/10/21 09/11/21 23:59 23:59 23:59 23:59 Intake Total 1050 3440 1050 Balance 1050 3440 1050 Meds/Results Medications: Active Medications Generic Name Dose Route Start Last Admin Trade Name Freq PRN Reason Stop Dose Admin Bisacodyl 10 mg 09/11/21 09:27 Bisacodyl 10 Mg Suppository RECTAL 09/11/21 09:28 ONCE ONE Hydralazine HCl 10 mg 09/10/21 16:01 09/10/21 18:45 Hydralazine Hcl 20 Mg/Ml Vial IV PUSH 10 mg Q8H PRN Administration Syst BP >170, Diast BP >100 Sodium Chloride 1,000 mls @ 100 mls/hr 09/09/21 17:35 09/11/21 04:52 Normal Saline Iv IV CONT 100 mls/hr .Q10H HARPREET Administration Piperacillin/Tazobactam/Dextrose 3.375 gm in 50 mls @ 100 mls/hr 09/10/21 00:00 09/11/21 05:30 Zosyn 3.375 Gm/D5w 50ml Pm IVPB Infused Q6HR HARPREET Infusion Morphine Sulfate 2 mg 09/09/21 20:39 09/11/21 08:51 Morphine Sulfate (*Crx) 2 Mg/Ml Inj IV PUSH 2 mg Q4H PRN Administration Pain Rated 7-10 Simethicone 80 mg 09/10/21 21:30 09/10/21 22:46 Simethicone 80 Mg Tab.Chew PO 80 mg QID PRN Administration Gas Discomfort Radiology Results: ITS Impressions Abdomen/Pelvis CT 09/09/21 17:09 IMPRESSION: Acute uncomplicated interstitial pancreatitis Cholelithiasis; cannot exclude acute cholecystitis; clinical correlation is advised. Radionuclide hepatic there is scan may be of assistance. Hepatic steatosis 1.8 cm hepatic cyst Bilateral renal cysts Diverticulosis of left colon; no CT evidence of diverticulitis Prostate enlargement and calcifications Mild fat-containing right inguinal hernia 4 mm middle lobe nodule Mild to moderate emphysema Labs Labs: Laboratory Results - last 24 hr 09/10/21 09/10/21 09/11/21 05:14 05:14 05:09 WBC 22.9 H RBC 5.80 Hgb 17.9 Hct 56.5 H MCV 97.4 MCH 30.9 MCHC 31
[2021-09-11] MEDS: BISACODYL 10 MG SUPPOSITORY RECTAL (11:37)
--- NOTE | 2021-09-11 13:00 | P.PNIM_ITS ---
Progress Note: A&P Assessment and Plan (1) Acute pancreatitis: Code(s): K85.90 - Acute pancreatitis without necrosis or infection, unspecified Status: Acute Assessment and Plan: Acute pancreatitis secondary to gallstones * Lipase 17,000 on presentation. Improved to 1200 today * Continue NPO diet * Continue gentle IV fluids while NPO * Antiemetics and analgesics available as needed * Appreciate general surgery and Gastroenterology consultation * Plan for MRCP for biliary duct evaluation. Patient declined yesterday due to pain. Will re-attempt today * Consider advancing to clear liquids following MRCP (2) Cholelithiasis: Code(s): K80.20 - Calculus of gallbladder without cholecystitis without obstruction Status: Acute Assessment and Plan: Cholelithiasis with possible cholecystitis. * Appreciate general surgery consultation * Planning for laparoscopic cholecystectomy upon resolution of pancreatitis * Eliquis on hold in preparation of procedure * Continue IV Zosyn. Slight increase in WBC today. Continue to monitor. (3) Transaminitis: Code(s): R74.01 - Elevation of levels of liver transaminase levels Status: Acute Assessment and Plan: Secondary to above * LFTs with downward trend * Total bili remains elevated at 6.4 today * Monitor closely * MRCP pending (4) Hyperglycemia: Code(s): R73.9 - Hyperglycemia, unspecified Status: Acute Assessment and Plan: Likely secondary to acute illness * A1c is 5.7 * Continue to monitor fasting glucose on daily BMP (5) Paroxysmal atrial fibrillation: Code(s): I48.0 - Paroxysmal atrial fibrillation Status: Acute Assessment and Plan: Rate is controlled * Eliquis is on hold for procedure * Resume when clinically appropriate (6) Elevated blood pressure reading: Code(s): R03.0 - Elevated blood-pressure reading, without diagnosis of hypertension Status: Acute Assessment and Plan: Blood pressure has been elevated during admission * Patient has no history of hypertension and is not on antihypertensives * Suspect this is worsened due to pain * P.r.n. hydralazine as needed for systolic BP >170 or diastolic BP >100 * Monitor BP trends closely. May need to consider addition of p.o. antihypertensive if BP remains elevated with appropriate pain control Subjective Date/time seen: 09/11/21 13:00 Interval history: Date of service: 09/11/2021 Memo Soto is a 75-year-old male with a history of paroxysmal atrial fibrillation on chronic anticoagulation and kidney stones who is seen in follow- up for gallstone pancreatitis. He is feeling better today. Pain seems somewhat improved. At this time he is resting comfortably in the chair and he reports his epigastric pain is 0/10. If he does get up or move around he states that increases to about 6/10. He denies nausea or vomiting. He does report belching. He is concerned because he has not had a bowel movement in 2 days. Discussed the fact that he also has not had anything to eat or drink therefore he might not need to have a bowel movement but he is still quite concerned about lack of bowel movement. He denies fevers, chills, dizziness, lightheadedness, weakness. He feels that his coloring is a bit better today and is noting less yellowish discoloration. He denies urinary symptoms. No shortness of breath, cough, chest pain. He did not complete his MRCP yesterday because he had pain when he tried to lay down. He is very concerned about repeating this today due
--- NOTE | 2021-09-11 13:00 | PM.IMPN ---
Progress Note: A&P Assessment and Plan (1) Acute pancreatitis: Code(s): K85.90 - Acute pancreatitis without necrosis or infection, unspecified Status: Acute Assessment and Plan: Acute pancreatitis secondary to gallstones Lipase 17,000 on presentation. Improved to 1200 today Continue NPO diet Continue gentle IV fluids while NPO Antiemetics and analgesics available as needed Appreciate general surgery and Gastroenterology consultation Plan for MRCP for biliary duct evaluation. Patient declined yesterday due to pain. Will re-attempt today Consider advancing to clear liquids following MRCP (2) Cholelithiasis: Code(s): K80.20 - Calculus of gallbladder without cholecystitis without obstruction Status: Acute Assessment and Plan: Cholelithiasis with possible cholecystitis. Appreciate general surgery consultation Planning for laparoscopic cholecystectomy upon resolution of pancreatitis Eliquis on hold in preparation of procedure Continue IV Zosyn. Slight increase in WBC today. Continue to monitor. (3) Transaminitis: Code(s): R74.01 - Elevation of levels of liver transaminase levels Status: Acute Assessment and Plan: Secondary to above LFTs with downward trend Total bili remains elevated at 6.4 today Monitor closely MRCP pending (4) Hyperglycemia: Code(s): R73.9 - Hyperglycemia, unspecified Status: Acute Assessment and Plan: Likely secondary to acute illness A1c is 5.7 Continue to monitor fasting glucose on daily BMP (5) Paroxysmal atrial fibrillation: Code(s): I48.0 - Paroxysmal atrial fibrillation Status: Acute Assessment and Plan: Rate is controlled Eliquis is on hold for procedure Resume when clinically appropriate (6) Elevated blood pressure reading: Code(s): R03.0 - Elevated blood-pressure reading, without diagnosis of hypertension Status: Acute Assessment and Plan: Blood pressure has been elevated during admission Patient has no history of hypertension and is not on antihypertensives Suspect this is worsened due to pain P.r.n. hydralazine as needed for systolic BP >170 or diastolic BP >100 Monitor BP trends closely. May need to consider addition of p.o. antihypertensive if BP remains elevated with appropriate pain control Subjective Date/time seen: 09/11/21 13:00 Interval history: Date of service: 09/11/2021 Memo Soto is a 75-year-old male with a history of paroxysmal atrial fibrillation on chronic anticoagulation and kidney stones who is seen in follow-up for gallstone pancreatitis. He is feeling better today. Pain seems somewhat improved. At this time he is resting comfortably in the chair and he reports his epigastric pain is 0/10. If he does get up or move around he states that increases to about 6/10. He denies nausea or vomiting. He does report belching. He is concerned because he has not had a bowel movement in 2 days. Discussed the fact that he also has not had anything to eat or drink therefore he might not need to have a bowel movement but he is still quite concerned about lack of bowel movement. He denies fevers, chills, dizziness, lightheadedness, weakness. He feels that his coloring is a bit better today and is noting less yellowish discoloration. He denies urinary symptoms. No shortness of breath, cough, chest pain. He did not complete his MRCP yesterday because he had pain when he tried to lay down. He is very concerned about repeating this today due to the pain. Discussed the need for completing MRCP for full workup and he states he will try again today. Review of Systems Review of Systems: All systems reviewed & are unremarkable except as noted in HPI and below Exam Narrative: General: Well-nourished, well-appearing 75-year-old male, sitting up in bed, comfortable, NARD Neuro: awake, alert and oriented x4, speech clear, no f
--- NOTE | 2021-09-11 13:40 | WPDGIPROGNO ---
Progress Note: A&P Assessment and Plan (1) Gallstone pancreatitis: Code(s): K85.10 - Biliary acute pancreatitis without necrosis or infection Status: Acute Assessment and Plan: will complete MRCP today to assess biliary system and see if will need also ERCP surgery on board, will need cholecystectomy when pancreatitis better TG level normal and denies etoh (2) Elevated liver enzymes: Code(s): R74.8 - Abnormal levels of other serum enzymes Status: Acute Assessment and Plan: slowly trending down but bili ~ 6 pending mrcp (3) Abnormal computed tomography of abdomen and pelvis: Code(s): R93.5 - Abnormal findings on diagnostic imaging of other abdominal regions, including retroperitoneum Status: Acute (4) Paroxysmal atrial fibrillation: Code(s): I48.0 - Paroxysmal atrial fibrillation Status: Acute (5) Chronic anticoagulation: Code(s): Z79.01 - [facility]PC (current) use of anticoagulants Status: Acute Assessment and Plan: AC is on hold (6) Upper abdominal pain: Code(s): R10.10 - Upper abdominal pain, unspecified Status: Acute Subjective Date/time seen: 09/11/21 13:40 Interval history: patient yesterday could not lay down for MRI because pain but today is willing to try again. Pain is slowly improving, less nausea and would like to try liquid Review of Systems Review of Systems: All systems reviewed & are unremarkable except as noted in HPI and below Exam Const: General: comfortable and no acute distress HENMT: General nose exam: Normal nares present Eyes: General: appearance normal, both eyes and all related structures Neck: Neck: supple Resp: Auscultation: clear to auscultation bilaterally Cardio: Rhythm: regular rhythm GI: Inspection: distended GI Palp: Yes Soft to palpation, Yes Tenderness to palpation present (GI) (Epigastric and right upper quadrant) and No Guarding due to palpation present (GI) Skin: Other: jaundice Neuro: Speech: normal speech Extrem: General: normal to inspection Psych: Affect: normal affect Objective Data Vital Signs Vital Signs: Vital Signs - 24 hr 09/10/21 14:00 09/10/21 19:38 09/10/21 20:00 Temperature 98.1 F 97.8 F Pulse Rate 45 L 78 Respiratory Rate 20 18 Blood Pressure 139/116 H 155/100 H Pulse Oximetry 98 96 Oxygen Delivery Room Air 09/11/21 04:07 09/11/21 07:45 Temperature 97.3 F L Pulse Rate 71 Respiratory Rate 16 Blood Pressure 149/100 H Pulse Oximetry 99 Oxygen Delivery Room Air Intake/Output Intake/Output: Intake & Output 09/08/21 09/09/21 09/10/21 09/11/21 23:59 23:59 23:59 23:59 Intake Total 1050 3440 1100 Balance 1050 3440 1100 Meds/Results Medications: Active Medications Generic Name Dose Route Start Last Admin Trade Name Freq PRN Reason Stop Dose Admin Hydralazine HCl 10 mg 09/10/21 16:01 09/10/21 18:45 Hydralazine Hcl 20 Mg/Ml Vial IV PUSH 10 mg Q8H PRN Administration Syst BP >170, Diast BP >100 Sodium Chloride 1,000 mls @ 80 mls/hr 09/09/21 17:35 09/11/21 04:52 Normal Saline Iv IV CONT 100 mls/hr .[id number] HARPREET Administration Piperacillin/Tazobactam/Dextrose 3.375 gm in 50 mls @ 100 mls/hr 09/10/21 00:00 09/11/21 12:07 Zosyn 3.375 Gm/D5w 50ml Pm IVPB Infused Q6HR HARPREET Infusion Morphine Sulfate 2 mg 09/09/21 20:39 09/11/21 08:51 Morphine Sulfate (*Crx) 2 Mg/Ml Inj IV PUSH 2 mg Q4H PRN Administration Pain Rated 7-10 Simethicone 80 mg 09/10/21 21:30 09/10/21 22:46 Simethicone 80 Mg Tab.Chew PO 80 mg QID PRN Administration Gas Discomfort Radiology Results: ITS Impressions Abdomen/Pelvis CT 09/09/21 17:09 IMPRESSION: Acute uncomplicated interstitial pancreatitis Cholelithiasis; cannot exclude acute cholecystitis; clinical correlation is advised. Radionuclide hepatic there is scan may be of assistance. Hepatic steatosis 1.8 cm hepa
[2021-09-11 14:00] VITALS: BP 159/117; PULSE 91; RESP 24; TEMP 36.4; O2SAT 98
[2021-09-11 14:50] VITALS: BP 178/104
[2021-09-11] MEDS: hydrALAZINE HCL 20 MG/ML VIAL 10 MG IV PUSH ×2 (14:51→23:36)
[2021-09-11 19:42] VITALS: BP 136/100; PULSE 78; RESP 18; TEMP 36.4; O2SAT 96
[2021-09-11 23:00] VITALS: BP 146/94
[2021-09-12 04:15] VITALS: BP 180/98; PULSE 82; RESP 16; TEMP 36.6; O2SAT 97
[2021-09-12 05:26] LABS: Basophils Percent Auto 0.2 % (0.2-1.2); Hematocrit 51.2 % (42.0-52.0); Hemoglobin 16.8 g/dL (14.0-18.0); Immature Granulocyte Absolute 0.14 K/mm3 (0.00-0.031); Immature Granulocyte Percent A 0.7 % (0-0.5); Lymphocytes Absolute Auto 0.56 K/mm3 (0.9-3.2); Mean Corpuscular HGB Conc 32.8 g/dl (32-36); Mean Corpuscular Hemoglobin 31.5 pg (26-34); Mean Corpuscular Volume 95.9 fl (80-100); Mean Platelet Volume 11.3 fl (7.4-10.4); Monocytes Absolute Auto 1.5 K/mm3 (0.1-0.6); Monocytes Percent Auto 8.1 % (2.6-8.5); Neutrophils Absolute Auto 16.7 K/mm3 (1.3-6.7); Platelet Count Result 143 k/mm3 (150-375); Red Blood Count 5.34 M/mm3 (4.6-6.20); Red Cell Distribution Width 14.8 % (11.5-14.5); White Blood Count 18.9 K/mm3 (4.5-10.0)
[2021-09-12 05:50] LABS: Alanine Aminotransferase 115 U/L (6-50); Albumin Level 3.7 g/dL (3.5-5.1); Alkaline Phosphatase 133 U/L (38-126); Anion Gap 6 mmol/L (8-16); Aspartate Amino Transferase 77 U/L (17-59); Bilirubin,Total 6.6 mg/dL (0.2-1.3); Blood Urea Nitrogen 33 mg/dL (9-20); Calcium 8.1 mg/dL (8.4-10.2); Carbon Dioxide 24 mmol/L (22-30); Chloride 108 mmol/L (98-107); Estimated CRCL calculation 67 ml/min; Estimated Glomerular Filt Rate > 60; Glucose 121 mg/dL (65-110); Lipase 290 U/L (23-300); Potassium 3.7 mmol/L (3.4-5.0); Sodium 138 mmol/L (137-145)
[2021-09-12] MEDS: SODIUM CHLORIDE 0.9% IV 1,000 ML 80 ML IV CONT ×2 (05:57→20:17)
[2021-09-12 08:00] VITALS: BP 153/97; PULSE 65
[2021-09-12] MEDS: MORPHINE SULFATE (*CRX) 2 MG/ML INJ IV PUSH ×2 (10:25→17:40)
--- NOTE | 2021-09-12 12:02 | PM.PNGS ---
Progress Note: A&P Assessment and Plan (1) Gallstone pancreatitis: Code(s): K85.10 - Biliary acute pancreatitis without necrosis or infection Status: Acute Assessment and Plan: I reviewed the MRCP. Pancreatitis and cholelithiasis seen, but no bile duct occlusion or dilation. Unsure why bilirubin is so elevated still. Will get direct/indirect bili with tomorrow's labs. If he is continuing to improve, will possibly proceed with lap syeda with cholangiogram tomorrow. (2) Cholelithiasis: Code(s): K80.20 - Calculus of gallbladder without cholecystitis without obstruction Status: Acute (3) Elevated liver enzymes: Code(s): R74.8 - Abnormal levels of other serum enzymes Status: Acute (4) Paroxysmal atrial fibrillation: Code(s): I48.0 - Paroxysmal atrial fibrillation Status: Acute Assessment and Plan: Eliquis on hold. Subjective Subjective Date/Time Seen: 09/12/21 12:02 Interval history: Pain slowly improving. No fevers. No nausea/vomiting. Exam GI: GI Palp: Yes Soft to palpation, Yes Tenderness to palpation present (GI) (slight epigastric and RUQ) and No Guarding due to palpation present (GI) Objective Data Vital Signs Vital Signs: Vital Signs - 24 hr 09/11/21 14:00 09/11/21 14:50 09/11/21 19:42 Temperature 36.4 C L 36.4 C L Pulse Rate 91 78 Respiratory Rate 24 H 18 Blood Pressure 159/117 H 178/104 H 136/100 H Pulse Oximetry 98 96 Oxygen Delivery 09/11/21 20:00 09/11/21 23:00 09/12/21 04:15 Temperature 36.6 C Pulse Rate 82 Respiratory Rate 16 Blood Pressure 146/94 H 180/98 H Pulse Oximetry 97 Oxygen Delivery Room Air Intake/Output Intake/Output: Intake & Output 09/09/21 09/10/21 09/11/21 09/12/21 23:59 23:59 23:59 23:59 Intake Total 1050 3440 2390 1775 Balance 1050 3440 2390 1775 Meds/Results Medications: Active Medications Generic Name Dose Route Start Last Admin Trade Name Freq PRN Reason Stop Dose Admin Hydralazine HCl 10 mg 09/10/21 16:01 09/11/21 23:36 Hydralazine Hcl 20 Mg/Ml Vial IV PUSH 10 mg Q8H PRN Administration Syst BP >170, Diast BP >100 Sodium Chloride 1,000 mls @ 80 mls/hr 09/09/21 17:35 09/12/21 05:57 Normal Saline Iv IV CONT 80 mls/hr .[id number] HARPREET Administration Piperacillin/Tazobactam/Dextrose 3.375 gm in 50 mls @ 100 mls/hr 09/10/21 00:00 09/12/21 11:59 Zosyn 3.375 Gm/D5w 50ml Pm IVPB 100 mls/hr Q6HR HARPREET Administration Morphine Sulfate 2 mg 09/09/21 20:39 09/12/21 10:25 Morphine Sulfate (*Crx) 2 Mg/Ml Inj IV PUSH 2 mg Q4H PRN Administration Pain Rated 7-10 Simethicone 80 mg 09/10/21 21:30 09/10/21 22:46 Simethicone 80 Mg Tab.Chew PO 80 mg QID PRN Administration Gas Discomfort Radiology Results: ITS Impressions Abdomen/Pelvis CT 09/09/21 17:09 IMPRESSION: Acute uncomplicated interstitial pancreatitis Cholelithiasis; cannot exclude acute cholecystitis; clinical correlation is advised. Radionuclide hepatic there is scan may be of assistance. Hepatic steatosis 1.8 cm hepatic cyst Bilateral renal cysts Diverticulosis of left colon; no CT evidence of diverticulitis Prostate enlargement and calcifications Mild fat-containing right inguinal hernia 4 mm middle lobe nodule Mild to moderate emphysema MRCP 09/12/21 09:25 IMPRESSION: 1. MRI findings consistent with acute interstitial edematous pancreatitis with acute peripancreatic fluid collection. 2. Cholelithiasis without evidence of cholecystitis. Labs Labs: Laboratory Results - last 24 hr 09/12/21 09/12/21 09/12/21 05:08 05:08 05:08 WBC 18.9 H RBC 5.34 Hgb 16.8 Hct 51.2 MCV 95.9 MCH 31.5 MCHC 32.8 RDW 14.8 H Plt Count 143 L MPV 11.3 H Immature Gran % (Auto) 0.7 H Neut % (Auto) 88.0 H Lymph % (Auto) 3.0 L [place] % (Auto) 8.1 Eos % (Auto) 0.0 Baso % (Auto) 0.2 Lymph
[2021-09-12 12:18] LABS: INR 1.4
[2021-09-12 13:45] VITALS: BP 155/89; PULSE 82; RESP 16; TEMP 36.7; O2SAT 98
--- NOTE | 2021-09-12 14:26 | P.PNIM_ITS ---
Progress Note: A&P Assessment and Plan (1) Acute pancreatitis: Code(s): K85.90 - Acute pancreatitis without necrosis or infection, unspecified Status: Acute Assessment and Plan: Acute pancreatitis secondary to gallstones * Lipase 17,000 on presentation. Normalized today. * Continue clear liquids * Continue gentle IV fluids * Antiemetics and analgesics available as needed * Appreciate general surgery and Gastroenterology consultation * MRCP reviewed. No stones or strictures of common bile duct. (2) Cholelithiasis: Code(s): K80.20 - Calculus of gallbladder without cholecystitis without obstruction Status: Acute Assessment and Plan: Cholelithiasis with possible cholecystitis on initial CT * Appreciate general surgery consultation * Planning for laparoscopic cholecystectomy tomorrow afternoon. * Eliquis on hold perioperatively * Continue IV Zosyn. WBC elevated but with downward trend (3) Transaminitis: Code(s): R74.01 - Elevation of levels of liver transaminase levels Status: Acute Assessment and Plan: Secondary to above * LFTs with downward trend * Total bili remains elevated at 6.6 of unclear etiology. Direct/indirect bilirubin pending * Monitor closely (4) Hyperglycemia: Code(s): R73.9 - Hyperglycemia, unspecified Status: Acute Assessment and Plan: Likely secondary to acute illness * A1c is 5.7 * Continue to monitor fasting glucose on daily BMP (5) Paroxysmal atrial fibrillation: Code(s): I48.0 - Paroxysmal atrial fibrillation Status: Acute Assessment and Plan: Rate is controlled * Eliquis is on hold for procedure * Resume when clinically appropriate (6) Elevated blood pressure reading: Code(s): R03.0 - Elevated blood-pressure reading, without diagnosis of hypertension Status: Acute Assessment and Plan: Blood pressure has been elevated during admission. Slightly improved today at 155/89 * Patient has no history of hypertension and is not on antihypertensives * Suspect this is worsened due to pain * P.r.n. hydralazine as needed for systolic BP >170 or diastolic BP >100 * Monitor BP trends closely. May need to consider addition of p.o. antihypertensive if BP remains elevated with appropriate pain control Subjective Date/time seen: 09/12/21 14:26 Interval history: Date of service:? 09/11/2021 Memo Soto is a 75-year-old male with a history of paroxysmal atrial fibrillation on chronic anticoagulation and kidney stones who is seen in follow- up for gallstone pancreatitis.?? he is feeling better today. He endorses mild periumbilical pain. He was able to tolerate clear liquids this morning without any difficulty. He denies nausea or vomiting. He has had trouble sleeping due to frequent interruptions during his hospitalization. He also reports decreased energy due to lying in bed for prolonged periods of time. He denies shortness breath, cough, chest pain, palpitations, dizziness, lightheadedness. He has been passing flatus but has not had a bowel movement. He denies urinary symptoms. Review of Systems Review of Systems: All systems reviewed & are unremarkable except as noted in HPI and below Exam Narrative: General: Well-nourished, well-appearing 75-year-old male, sitting up in bed, comfortable, NARD Neuro: awake, alert and oriented x4, speech clear, no focal neuro deficits noted HEENMT: normocephalic, atraumatic, EOMI, bilateral scleral ict
--- NOTE | 2021-09-12 14:26 | PM.IMPN ---
Progress Note: A&P Assessment and Plan (1) Acute pancreatitis: Code(s): K85.90 - Acute pancreatitis without necrosis or infection, unspecified Status: Acute Assessment and Plan: Acute pancreatitis secondary to gallstones Lipase 17,000 on presentation. Normalized today. Continue clear liquids Continue gentle IV fluids Antiemetics and analgesics available as needed Appreciate general surgery and Gastroenterology consultation MRCP reviewed. No stones or strictures of common bile duct. (2) Cholelithiasis: Code(s): K80.20 - Calculus of gallbladder without cholecystitis without obstruction Status: Acute Assessment and Plan: Cholelithiasis with possible cholecystitis on initial CT Appreciate general surgery consultation Planning for laparoscopic cholecystectomy tomorrow afternoon. Eliquis on hold perioperatively Continue IV Zosyn. WBC elevated but with downward trend (3) Transaminitis: Code(s): R74.01 - Elevation of levels of liver transaminase levels Status: Acute Assessment and Plan: Secondary to above LFTs with downward trend Total bili remains elevated at 6.6 of unclear etiology. Direct/indirect bilirubin pending Monitor closely (4) Hyperglycemia: Code(s): R73.9 - Hyperglycemia, unspecified Status: Acute Assessment and Plan: Likely secondary to acute illness A1c is 5.7 Continue to monitor fasting glucose on daily BMP (5) Paroxysmal atrial fibrillation: Code(s): I48.0 - Paroxysmal atrial fibrillation Status: Acute Assessment and Plan: Rate is controlled Eliquis is on hold for procedure Resume when clinically appropriate (6) Elevated blood pressure reading: Code(s): R03.0 - Elevated blood-pressure reading, without diagnosis of hypertension Status: Acute Assessment and Plan: Blood pressure has been elevated during admission. Slightly improved today at 155/89 Patient has no history of hypertension and is not on antihypertensives Suspect this is worsened due to pain P.r.n. hydralazine as needed for systolic BP >170 or diastolic BP >100 Monitor BP trends closely. May need to consider addition of p.o. antihypertensive if BP remains elevated with appropriate pain control Subjective Date/time seen: 09/12/21 14:26 Interval history: Date of service:? 09/11/2021 Memo Soto is a 75-year-old male with a history of paroxysmal atrial fibrillation on chronic anticoagulation and kidney stones who is seen in follow-up for gallstone pancreatitis.?? he is feeling better today. He endorses mild periumbilical pain. He was able to tolerate clear liquids this morning without any difficulty. He denies nausea or vomiting. He has had trouble sleeping due to frequent interruptions during his hospitalization. He also reports decreased energy due to lying in bed for prolonged periods of time. He denies shortness breath, cough, chest pain, palpitations, dizziness, lightheadedness. He has been passing flatus but has not had a bowel movement. He denies urinary symptoms. Review of Systems Review of Systems: All systems reviewed & are unremarkable except as noted in HPI and below Exam Narrative: General: Well-nourished, well-appearing 75-year-old male, sitting up in bed, comfortable, NARD Neuro: awake, alert and oriented x4, speech clear, no focal neuro deficits noted HEENMT: normocephalic, atraumatic, EOMI, bilateral scleral icterus Respiratory: clear to auscultation bilaterally, nonlabored breathing Cardio: regular rate, regular rhythm with S1-S2 Abdomen: nondistended, normoactive bowel sounds, soft, tender to palpation in mid epigastric region Extremities: no edema, erythema, or tenderness to palpation Skin: mild jaundice (improved from prior exam), no rashes or lesions, warm and dry Psych: appropriate mood and affect, judgment and insight intact Objective Data Vital Signs
--- NOTE | 2021-09-12 16:51 | WPDGIPROGNO ---
Progress Note: A&P Assessment and Plan (1) Gallstone pancreatitis: Code(s): K85.10 - Biliary acute pancreatitis without necrosis or infection Status: Acute Assessment and Plan: MRCP reviewed and showed acute interstitial edematous pancreatitis with acute peripancreatic fluid collection, cholelithiasis without evidence of cholecystitis with normal bile duct size or stricture TG level normal and denies etoh Surgery is planning cholecystectomy with IOC (2) Elevated liver enzymes: Code(s): R74.8 - Abnormal levels of other serum enzymes Status: Acute Assessment and Plan: still elevated bilirubin probably from pancreatitis trend lft's hepatitis panel negative (3) Abnormal computed tomography of abdomen and pelvis: Code(s): R93.5 - Abnormal findings on diagnostic imaging of other abdominal regions, including retroperitoneum Status: Acute Assessment and Plan: MRCP reviewed (4) Paroxysmal atrial fibrillation: Code(s): I48.0 - Paroxysmal atrial fibrillation Status: Acute (5) Chronic anticoagulation: Code(s): Z79.01 - [facility] (current) use of anticoagulants Status: Acute Assessment and Plan: AC is on hold (6) Upper abdominal pain: Code(s): R10.10 - Upper abdominal pain, unspecified Status: Acute Subjective Date/time seen: 09/12/21 16:51 Interval history: less abdominal pain today. MRCP reviewed Review of Systems Review of Systems: All systems reviewed & are unremarkable except as noted in HPI and below Exam Const: General: comfortable and no acute distress HENMT: General nose exam: Normal nares present Eyes: General: appearance normal, both eyes and all related structures Neck: Neck: supple Resp: Auscultation: clear to auscultation bilaterally Cardio: Rate: regular rate GI: GI Palp: Yes Soft to palpation, Yes Tenderness to palpation present (GI) (slight epigastric and RUQ) and No Guarding due to palpation present (GI) Skin: Other: icteric Neuro: Speech: normal speech Extrem: General: normal to inspection Objective Data Vital Signs Vital Signs: Vital Signs - 24 hr 09/11/21 19:42 09/11/21 20:00 09/11/21 23:00 Temperature 97.5 F L Pulse Rate 78 Respiratory Rate 18 Blood Pressure 136/100 H 146/94 H Pulse Oximetry 96 Oxygen Delivery Room Air 09/12/21 04:15 09/12/21 13:45 Temperature 97.9 F 98.1 F Pulse Rate 82 82 Respiratory Rate 16 16 Blood Pressure 180/98 H 155/89 H Pulse Oximetry 97 98 Oxygen Delivery Intake/Output Intake/Output: Intake & Output 09/09/21 09/10/21 09/11/21 09/12/21 23:59 23:59 23:59 23:59 Intake Total 1050 3440 2390 2125 Balance 1050 3440 2390 2125 Meds/Results Medications: Active Medications Generic Name Dose Route Start Last Admin Trade Name Freq PRN Reason Stop Dose Admin Acetaminophen 1,000 mg 09/13/21 11:00 Acetaminophen 500 Mg Tablet PO 09/13/21 11:01 ONCE ONE Chlorhexidine Gluconate 1 applic 09/13/21 06:30 Chlorhexidine Gluconate 4% Dyana 120 Ml Btl TOPICAL 09/13/21 06:31 ONCE ONE Hydralazine HCl 10 mg 09/10/21 16:01 09/11/21 23:36 Hydralazine Hcl 20 Mg/Ml Vial IV PUSH 10 mg Q8H PRN Administration Syst BP >170, Diast BP >100 Sodium Chloride 1,000 mls @ 80 mls/hr 09/09/21 17:35 09/12/21 05:57 Normal Saline Iv IV CONT 80 mls/hr .[id number] HARPREET Administration Piperacillin/Tazobactam/Dextrose 3.375 gm in 50 mls @ 100 mls/hr 09/10/21 00:00 09/12/21 12:29 Zosyn 3.375 Gm/D5w 50ml Pm IVPB Infused Q6HR HARPREET Infusion Ketorolac Tromethamine 15 mg 09/13/21 11:00 Ketorolac 15 Mg/Ml Vial (*Bkc) IV PUSH 09/13/21 11:01 ONCE ONE Morphine Sulfate 2 mg 09/09/21 20:39 09/12/21 10:25 Morphine Sulfate (*Crx) 2 Mg/Ml Inj IV PUSH 2 mg Q4H PRN Administration Pain Rated 7-10 Simethicone 80 mg 09/10/21 21:30 09/10/21 22:46 Simethicone 80 Mg Tab.Chew PO 80 m
[2021-09-12 20:07] VITALS: BP 136/87; PULSE 88; RESP 20; TEMP 36.8; O2SAT 97
[2021-09-13] VITALS (24 sets, daily range): BP systolic 107–172; BP diastolic 74–110; PULSE 56–200; RESP 16–26; TEMP 36.6–37.9; O2SAT 95–100; BMI 26.1
[2021-09-13 05:45] LABS: Hematocrit 46.2 % (42.0-52.0); Hemoglobin 15.9 g/dL (14.0-18.0); Mean Corpuscular HGB Conc 34.4 g/dl (32-36); Mean Corpuscular Hemoglobin 31.7 pg (26-34); Mean Corpuscular Volume 92.2 fl (80-100); Mean Platelet Volume 11.9 fl (7.4-10.4); Platelet Count Result 153 k/mm3 (150-375); Red Blood Count 5.01 M/mm3 (4.6-6.20); Red Cell Distribution Width 14.6 % (11.5-14.5)
[2021-09-13 05:54] LABS: INR 1.5; Prothrombin Time 17.2 Seconds (11.1-14.7)
[2021-09-13 06:00] LABS: Alanine Aminotransferase 77 U/L (6-50); Albumin Level 3.3 g/dL (3.5-5.1); Alkaline Phosphatase 127 U/L (38-126); Anion Gap 5 mmol/L (8-16); Aspartate Amino Transferase 55 U/L (17-59); Bilirubin Direct 0.8 mg/dL (0-0.3); Bilirubin Indirect 3.2 mg/dL (0-1.1); Bilirubin,Total 5.5 mg/dL (0.2-1.3); Blood Urea Nitrogen 34 mg/dL (9-20); Calcium 7.7 mg/dL (8.4-10.2); Carbon Dioxide 25 mmol/L (22-30); Chloride 108 mmol/L (98-107); Estimated CRCL calculation 75 ml/min; Estimated Glomerular Filt Rate > 60; Glucose 120 mg/dL (65-110); Potassium 3.5 mmol/L (3.4-5.0); Sodium 138 mmol/L (137-145)
[2021-09-13] MEDS: CHLORHEXIDINE GLUCONATE 4% SOL 120 ML BTL 1 APPLIC TOPICAL (06:00)
[2021-09-13] MEDS: MORPHINE SULFATE (*CRX) 2 MG/ML INJ IV PUSH (06:02)
--- NOTE | 2021-09-13 08:31 | P.PNIM_ITS ---
Progress Note: A&P Assessment and Plan (1) Acute pancreatitis: Code(s): K85.90 - Acute pancreatitis without necrosis or infection, unspecified Status: Acute Assessment and Plan: Acute pancreatitis secondary to gallstones * Lipase 17,000 on presentation. Now normal * Antiemetics and analgesics available as needed * Appreciate general surgery and Gastroenterology consultation * MRCP reviewed. No stones or strictures of common bile duct. (2) Cholelithiasis: Code(s): K80.20 - Calculus of gallbladder without cholecystitis without obstruction Status: Acute Assessment and Plan: Cholelithiasis with possible cholecystitis on initial CT * Appreciate general surgery consultation * MRCP no evidence of cholelithiasis. * Planning for laparoscopic cholecystectomy this afternoon. * NPO for procedure. Continue gentle fluids while NPO. * Eliquis on hold perioperatively. Resume when appropriate per General Surgery recommendations * Continue IV Zosyn. WBC improving (3) Transaminitis: Code(s): R74.01 - Elevation of levels of liver transaminase levels Status: Acute Assessment and Plan: Secondary to above * LFTs with downward trend. AST normalized today * Total bili remains elevated but improving. 5.5 today. Unconjugated hyperbilirubinemia. Will evaluate labs for possible hemolysis though seems unlikely as patient is not anemic. (4) Hyperglycemia: Code(s): R73.9 - Hyperglycemia, unspecified Status: Acute Assessment and Plan: Likely secondary to acute illness * A1c is 5.7 * Continue to monitor fasting glucose on daily BMP (5) Paroxysmal atrial fibrillation: Code(s): I48.0 - Paroxysmal atrial fibrillation Status: Acute Assessment and Plan: Rate is controlled * Eliquis is on hold for procedure * Resume when clinically appropriate (6) Elevated blood pressure reading: Code(s): R03.0 - Elevated blood-pressure reading, without diagnosis of hypertension Status: Acute Assessment and Plan: Blood pressure has been elevated during admission. Improved today. Last BP 129/84 * Patient has no history of hypertension and is not on antihypertensives * Suspect elevated due to pain. * P.r.n. hydralazine as needed for systolic BP >170 or diastolic BP >100 * Monitor BP trends closely. May need to consider addition of p.o. antihypertensive if BP remains elevated with appropriate pain control Subjective Date/time seen: 06/28/22 08:31 Interval history: Date of service:? 09/12/2021 Memo Soto is a 75-year-old male with a history of paroxysmal atrial fibrillation on chronic anticoagulation and kidney stones who is seen in follow- up for gallstone pancreatitis.? He is feeling well today. He denies abdominal pain. When he is resting, he is comfortable, however he does numbness of right upper quadrant pain if he takes a big deep breath or gets up. He denies shortness of breath or chest pain. Denies nausea or vomiting. He has not had a bowel movement. He denies lower extremity swelling. He will be having surgery this afternoon and is eager to be able to have something to eat once this is complete Review of Systems Review of Systems: All systems reviewed & are unremarkable except as noted in HPI and below Exam Narrative: General: Well-nourished, well-appearing 75-year-old male, supine in bed, comfortable, NARD Neuro: awake, alert and oriented x4, speech clear, no focal neuro deficits noted
--- NOTE | 2021-09-13 08:31 | PM.IMPN ---
Progress Note: A&P Assessment and Plan (1) Acute pancreatitis: Code(s): K85.90 - Acute pancreatitis without necrosis or infection, unspecified Status: Acute Assessment and Plan: Acute pancreatitis secondary to gallstones Lipase 17,000 on presentation. Now normal Antiemetics and analgesics available as needed Appreciate general surgery and Gastroenterology consultation MRCP reviewed. No stones or strictures of common bile duct. (2) Cholelithiasis: Code(s): K80.20 - Calculus of gallbladder without cholecystitis without obstruction Status: Acute Assessment and Plan: Cholelithiasis with possible cholecystitis on initial CT Appreciate general surgery consultation MRCP no evidence of cholelithiasis. Planning for laparoscopic cholecystectomy this afternoon. NPO for procedure. Continue gentle fluids while NPO. Eliquis on hold perioperatively. Resume when appropriate per General Surgery recommendations Continue IV Zosyn. WBC improving (3) Transaminitis: Code(s): R74.01 - Elevation of levels of liver transaminase levels Status: Acute Assessment and Plan: Secondary to above LFTs with downward trend. AST normalized today Total bili remains elevated but improving. 5.5 today. Unconjugated hyperbilirubinemia. Will evaluate labs for possible hemolysis though seems unlikely as patient is not anemic. (4) Hyperglycemia: Code(s): R73.9 - Hyperglycemia, unspecified Status: Acute Assessment and Plan: Likely secondary to acute illness A1c is 5.7 Continue to monitor fasting glucose on daily BMP (5) Paroxysmal atrial fibrillation: Code(s): I48.0 - Paroxysmal atrial fibrillation Status: Acute Assessment and Plan: Rate is controlled Eliquis is on hold for procedure Resume when clinically appropriate (6) Elevated blood pressure reading: Code(s): R03.0 - Elevated blood-pressure reading, without diagnosis of hypertension Status: Acute Assessment and Plan: Blood pressure has been elevated during admission. Improved today. Last BP 129/84 Patient has no history of hypertension and is not on antihypertensives Suspect elevated due to pain. P.r.n. hydralazine as needed for systolic BP >170 or diastolic BP >100 Monitor BP trends closely. May need to consider addition of p.o. antihypertensive if BP remains elevated with appropriate pain control Subjective Date/time seen: 09/13/21 08:31 Interval history: Date of service:? 09/12/2021 Memo Soto is a 75-year-old male with a history of paroxysmal atrial fibrillation on chronic anticoagulation and kidney stones who is seen in follow-up for gallstone pancreatitis.? He is feeling well today. He denies abdominal pain. When he is resting, he is comfortable, however he does numbness of right upper quadrant pain if he takes a big deep breath or gets up. He denies shortness of breath or chest pain. Denies nausea or vomiting. He has not had a bowel movement. He denies lower extremity swelling. He will be having surgery this afternoon and is eager to be able to have something to eat once this is complete Review of Systems Review of Systems: All systems reviewed & are unremarkable except as noted in HPI and below Exam Narrative: General: Well-nourished, well-appearing 75-year-old male, supine in bed, comfortable, NARD Neuro: awake, alert and oriented x4, speech clear, no focal neuro deficits noted HEENMT: normocephalic, atraumatic, EOMI, bilateral scleral icterus Respiratory: clear to auscultation bilaterally, nonlabored breathing Cardio: regular rate, regular rhythm with S1-S2 Abdomen: nondistended, normoactive bowel sounds, soft, tender to palpation in mid epigastric region Extremities: no edema, erythema, or tenderness to palpation Skin: mild jaundice (improved from prior exam), no rashes or lesions, warm and dry Psych: appropriate mood and af
[2021-09-13] MEDS: SODIUM CHLORIDE 0.9% IV 1,000 ML 80 ML IV CONT ×2 (08:39→18:46)
[2021-09-13] MEDS: PHYTONADIONE ADULT INJ 10 MG in DEXTROSE 5% IN WATER 50 ML 100 MG IVPB (10:18)
[2021-09-13 11:11] LABS: Immature Reticulocyte Fraction 21.9 % (3.0-15.9); Reticulocyte Hemoglobin Conten 32.5 pg (28.2-35.7); Reticulocyte Percent 1.63 % (0.7-4.3); Reticulocytes Absolute 0.08 B/L (32.2-175.7)
[2021-09-13 11:26] LABS: Transferrin 106 mg/dL (206-381)
[2021-09-13 12:05] LABS: Iron 37 ug/dL (49-181)
[2021-09-13 12:15] LABS: Percent Iron Saturation 19 % (20-50)
[2021-09-13] MEDS: KETOROLAC 15 MG/ML VIAL (*BKC) IV PUSH (12:15)
[2021-09-13] MEDS: ACETAMINOPHEN 500 MG TABLET 1000 MG PO (12:15)
[2021-09-13] MEDS: LACTATED RINGERS 1,000 ML 30 ML IV CONT (12:15)
--- NOTE | 2021-09-13 12:20 | WPDANESEPPF ---
Anes - Initial Pre Proc Eval Procedure: Operation Date: 09/13/21 13:00 Proposed Procedures p Laparoscopic Cholecystectomy With Intraoperative Cholangiograms - Lorenzo Ronquillo DO Date/Time: 09/13/21 12:20 Surgeon: Vaishali Bliss PA-C Pre Op Diagnosis: Pancreatitis/cholecystitis Patient Data Age: 75 Gender: M Height: 1.8 m Weight: 85 kg Last Vital Signs Temp 36.7 C 09/13/21 04:52 Pulse 78 09/13/21 04:52 Resp 20 09/13/21 04:52 BP 120/84 09/13/21 04:52 Pulse Ox 98 09/13/21 04:52 O2 Del Method Room Air 09/13/21 08:00 Allergies Allergy/AdvReac Type Severity Reaction Status Date / Time No Known Allergies Allergy Verified 09/12/21 12:03 Home Medications Medication Instructions Recorded Confirmed Type apixaban 5 mg tablet (Eliquis) 5 mg PO BID 05/05/19 09/09/21 History Laboratory Tests 09/13/21 09/13/21 09/13/21 05:27 05:27 05:27 WBC 15.0 K/mm3 H K/mm3 (4.5-10.0) RBC 5.01 M/mm3 M/mm3 (4.6-6.20) Hgb 15.9 g/dL g/dL (14.0-18.0) Hct 46.2 % % (42.0-52.0) MCV 92.2 fl fl (80-100) MCH 31.7 pg pg (26-34) MCHC 34.4 g/dl g/dl (32-36) RDW 14.6 % H % (11.5-14.5) Plt Count 153 k/mm3 k/mm3 (150-375) MPV 11.9 fl H fl (7.4-10.4) Absolute Retic Percent Retic Immature Retic Fraction Retic Hgb Content Haptoglobin PT INR Sodium 138 mmol/L mmol/L (137-145) Potassium 3.5 mmol/L mmol/L (3.4-5.0) Chloride 108 mmol/L H mmol/L (98-107) Carbon Dioxide 25 mmol/L mmol/L (22-30) Anion Gap 5 mmol/L L mmol/L (8-16) BUN 34 mg/dL H mg/dL (9-20) Creatinine 0.80 mg/dL mg/dL (0.7-1.3) Estim Creat Clear Calc 75 ml/min ml/min Estimated GFR > 60 (59 - ) Glucose 120 mg/dL H mg/dL (65-110) Calcium 7.7 mg/dL L mg/dL (8.4-10.2) Iron TIBC % Saturation Transferrin Ferritin Total Bilirubin 5.5 mg/dL H mg/dL (0.2-1.3) Direct Bilirubin 0.8 mg/dL H mg/dL (0-0.3) Indirect Bilirubin 3.2 mg/dL H mg/dL (0-1.1) AST 55 U/L U/L (17-59) ALT 77 U/L H U/L (6-50) Alkaline Phosphatase 127 U/L H U/L (38-126) Lactate Dehydrogenase Total Protein 6.0 g/dL L g/dL (6.3-8.2) Albumin 3.3 g/dL L g/dL (3.5-5.1) Blood Type A Negative Antibody Screen Negative 09/13/21 09/13/21 09/13/21 05:27 10:38 10:38 WBC RBC Hgb Hct MCV MCH MCHC RDW Plt Count MPV Absolute Retic 0.08 B/L L B/L (32.2-175.7) Percent Retic 1.63 % % (0.7-4.3) Immature Retic Fraction 21.9 % H % (3.0-15.9) Retic Hgb Content 32.5 pg pg (28.2-35.7) Haptoglobin PT 17.2 Seconds H Seconds (11.1-14.7) INR 1.5 Sodium Potassium Chloride Carbon Dioxide Anion Gap BUN Creatinine Estim Creat Clear Calc Estimated GFR Glucose Calcium Iron TIBC % Saturation Transferrin Ferritin Total Bilirubin Direct Bilirubin Indirect Bilirubin AST ALT Alkaline Phosphatase Lactate Dehydrogenase Pending Total Protein Albumin Blood Type Antibody Screen 09/13/21 09/13/21 09/13/21 10:38 10:38 10:38 WBC RBC Hgb
[2021-09-13 12:28] LABS: Lactate Dehydrogenase 2633 U/L (313-618)
--- NOTE | 2021-09-13 12:31 | WPDHPUPDATE1 ---
History and Physical Update Update Date/Time: 09/13/21 12:31 History and Physical has been reviewed, including an updated exam of the patient. There are NO changes in the patient's condition. Risks, benefits, and alternatives have been discussed and questions answered. Patient agrees to proceed with procedure.
--- NOTE | 2021-09-13 13:01 | ECG_ITS ---
Measurements Intervals [place] Rate: 205 P: DC: 0 QRS: 76 QRSD: 84 T: 0 QT: 204 QTc: 377 Interpretive Statements ATRIAL FIBRILLATION WITH RAPID VENTRICULAR RESPONSE NONSPECIFIC T-WAVE ABNORMALITY ABNORMAL RHYTHM ECG NO PREVIOUS ECG AVAILABLE FOR COMPARISON Electronically Signed On 09-13-2021 19:34:49 CDT by Sobeida Agrawal M.D.
[2021-09-13] MEDS: METOPROLOL TARTRATE INJ 5 MG/5 ML VIAL IV PUSH ×3 (13:11→13:22)
--- NOTE | 2021-09-13 13:24 | SUR.PHASEI ---
1300 PT ADMITTED INTO PACU FROM OR. HR IRREGULAR 175-200. DR KIRBY & JOSELINE SHIN AT BEDSIDE. 1320 DR ANGLIN AT BEDSIDE ASSESSING PT.
[2021-09-13] MEDS: dilTIAZem 100 MG/100 ML 100 MG/100 ML BAG 10 MG IV CONT (13:30)
[2021-09-13] MEDS: dilTIAZem HCl INJ 25 MG/5 ML VIAL 10 MG IV PUSH (13:37)
--- NOTE | 2021-09-13 13:37 | PM.CNCAR ---
Assessment and Plan Assessment and plan (1) Atrial fibrillation with RVR: Code(s): I48.91 - Unspecified atrial fibrillation Status: Acute Assessment and Plan: Patient with a long history of atrial fibrillation, probably paroxysmal and rarely symptomatic. Appears to have recurrent paroxysmal AFib, RVR, in preparation for surgery. Cholecystectomy was canceled. Heart rate is still not optimally controlled Check echo, TSH Continue IV Cardizem, increase the drip to 15 milligrams/hour, and add p.o. metoprolol. Eliquis on hold because of possible surgery (2) Nonsustained ventricular tachycardia: Code(s): I47.2 - Ventricular tachycardia Status: Acute Assessment and Plan: Brief bursts of nonsustained ventricular tachycardia noted during AFib RVR Probably ventricular tachycardia rather than aberrantly conducted AFib Asymptomatic, and does not have symptoms consistent with CAD, with good exertional tolerance However, recommend an ischemia evaluation. Will check troponins and also add Lexiscan tomorrow. Potassium borderline low, will supplement and recheck tomorrow (3) Gallstone pancreatitis: Code(s): K85.10 - Biliary acute pancreatitis without necrosis or infection Status: Acute Assessment and Plan: Improved, anticipating cholecystectomy (4) Preoperative cardiovascular examination: Code(s): Z01.810 - Encounter for preprocedural cardiovascular examination Status: Acute Assessment and Plan: Cholecystectomy on hold for now, until cardiovascular status is stable. History of Present Illness History of Present Illness Consult date/time: 09/13/21 13:37 Reason For Visit: Pancreatitis/cholecystitis Narrative: Rolando Cuevas is a 75 y.o. WM whom we were asked to see at the request of the hospitalists for our advice and opinion regarding his a fib RVR. Mr. Soto was admitted a few days ago with gallstone pancreatitis. Today he was in the OR getting prepped for a cholecystectomy and received fentanyl 50 mg IV push in preparation. However when he was on the monitor was found he was in AFib RVR. EKG showed AFib heart rate 205. Surgery was canceled and we were asked to him urgently in the PACU. In addition to the AFib he is having brief bursts of a wide complex tachycardia, ventricular tachycardia versus perhaps abherently conducted AFib, lasting 1-2 seconds. The patient is alert, and states he has no chest pain or shortness of breath. He was given esmolol IV push x1 and a total of metoprolol 10 mg IV push prior to my arrival. Since my arrival he given another metoprolol 5 mg IV push, diltiazem 10 mg IV push and started a Cardizem drip at 10 milligrams/hour. Heart rate is in general improving, currently 100-140 beats per minute. He was diagnosed as having AFib 20 years ago, when he was getting a colonoscopy. He saw a aerospace medicine physician and his Echo was normal. Dr. Lopez started him on Eliquis about 10 years ago, but the a fib has not been a problem for Mr. Soto. Sometimes he will note some fast heart beats. He has not on any rate controlling agents. Has history of hypertension but no diabetes. Can do yd work, dance and play pickleball without any shortness of breath or chest pain. No history of any other type heart disease. He does not see a aerospace medicine physician now. Review of Systems Constitutional: Constitutional: Denies fever(s) ENT: Reports system reviewed and no additional complaints, except as documented Cardiovascular: Cardiovascular: Denies chest pain, Denies pedal edema, Denies lightheadedness and Denies dyspnea Respiratory: Respiratory: Denies chest congestion and Denies dyspnea Gastrointestinal: Gastrointestinal: Reports abdominal pain (from gall stones) and Denies hematochezia Musculoskeletal: Musculoskeletal: Reports no additional musculoskeletal complaints Integumentary/Breasts: Skin/Breast: Reports system reviewed and no additional com
--- NOTE | 2021-09-13 14:30 | WPDGIPROGNO ---
Progress Note: A&P Assessment and Plan (1) Gallstone pancreatitis: Code(s): K85.10 - Biliary acute pancreatitis without necrosis or infection Status: Acute Assessment and Plan: MRCP reviewed and showed acute interstitial edematous pancreatitis with acute peripancreatic fluid collection, cholelithiasis without evidence of cholecystitis with normal bile duct size or stricture TG level normal and denies etoh today for cholecystectomy with IOC (2) Elevated liver enzymes: Code(s): R74.8 - Abnormal levels of other serum enzymes Status: Acute Assessment and Plan: still elevated bilirubin probably from pancreatitis hepatitis panel negative (3) Abnormal computed tomography of abdomen and pelvis: Code(s): R93.5 - Abnormal findings on diagnostic imaging of other abdominal regions, including retroperitoneum Status: Acute Assessment and Plan: MRCP reviewed (4) Paroxysmal atrial fibrillation: Code(s): I48.0 - Paroxysmal atrial fibrillation Status: Acute (5) Chronic anticoagulation: Code(s): Z79.01 - 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 He will go to OR later Review of Systems Review of Systems: All systems reviewed & are unremarkable except as noted in HPI and below Exam Const: General: comfortable and no acute distress HENMT: General nose exam: Normal nares present Eyes: General: appearance normal, both eyes and all related structures Neck: Neck: supple Resp: Auscultation: clear to auscultation bilaterally Cardio: Rate: regular rate GI: GI Palp: Yes Soft to palpation, Yes Tenderness to palpation present (GI) (slight epigastric and RUQ) and No Guarding due to palpation present (GI) Skin: Other: icteric Neuro: Speech: normal speech Extrem: General: normal to inspection Objective Data Vital Signs Vital Signs: Vital Signs - 24 hr 09/12/21 20:07 09/12/21 20:00 09/13/21 04:52 Temperature 98.2 F 98.1 F Pulse Rate 88 78 Respiratory Rate 20 20 Blood Pressure 136/87 120/84 Pulse Oximetry 97 98 Oxygen Delivery Room Air Oxygen Flow Rate 09/13/21 08:00 09/13/21 12:25 09/13/21 13:00 Temperature 97.9 F 100.3 F H Pulse Rate 56 L 188 H Respiratory Rate 16 24 H Blood Pressure 172/110 H 121/79 Pulse Oximetry 98 96 Oxygen Delivery Room Air Room Air Room Air Oxygen Flow Rate 09/13/21 13:10 09/13/21 13:20 09/13/21 13:30 Temperature Pulse Rate 200 H 181 H 174 H Respiratory Rate 24 H 24 H Blood Pressure 144/74 H 142/81 H 137/82 Pulse Oximetry 96 100 Oxygen Delivery Room Air Simple Face Mask Oxygen Flow Rate 6 09/13/21 13:35 09/13/21 13:50 09/13/21 14:10 Temperature Pulse Rate 149 H 105 H 150 H Respiratory Rate 24 H 24 H 26 H Blood Pressure 139/90 107/83 121/83 Pulse Oximetry 100 100 97 Oxygen Delivery Simple Face Mask Simple Face Mask Simple Face Mask Oxygen Flow Rate 6 6 6 09/13/21 14:25 Temperature Pulse Rate 115 H Respiratory Rate 26 H Blood Pressure 145/90 H Pulse Oximetry 98 Oxygen Delivery Nasal Cannula Oxygen Flow Rate 2 Intake/Output Intake/Output: Intake & Output 09/10/21 09/11/21 09/12/21 09/13/21 23:59 23:59 23:59 23:59 Intake Total 3440 2390 3675 1270 Balance 3440 2390 3675 1270 Meds/Results Medications: Active Medications Generic Name Dose Route Start Last Admin Trade Name Freq PRN Reason Stop Dose Admin Fentanyl Citrate 25 mcg 09/13/21 12:09 Fentanyl Citrate Inj (*Crx) 100 Mcg/2 Ml Vial IV PUSH Q2M PRN Pain Hydralazine HCl 10 mg 09/10/21 16:01 09/11/21 23:36 Hydralazine Hcl 20 Mg/Ml Vial IV PUSH 10 mg Q8H
--- NOTE | 2021-09-13 15:00 | ECG_ITS ---
Measurements Intervals [place] Rate: 138 P: DC: 0 QRS: 54 QRSD: 88 T: 160 QT: 296 QTc: 449 Interpretive Statements ATRIAL FIBRILLATION WITH RAPID VENTRICULAR RESPONSE WITH ABERRANT CONDUCTION OR NONSUSTAINED VENTRICULAR TACHYCARDIA NONSPECIFIC T-WAVE ABNORMALITY COMPARED TO ECG 09/13/2021 13:11:15 ABERRANT CONDUCTION OR NONSUSTAINED VENTRICULAR TACHYCARDIA IS NOW PRESENT Electronically Signed On 09-13-2021 19:42:13 CDT by Sobeida Agrawal M.D.
--- NOTE | 2021-09-13 15:52 | PM.PNGS ---
Progress Note: A&P Assessment and Plan (1) Gallstone pancreatitis: Code(s): K85.10 - Biliary acute pancreatitis without necrosis or infection Status: Acute Assessment and Plan: Pancreatitis slowly improving. Lap syeda with IOC on hold now due to arrhythmia. Will await further eval and treatment by Cardiology. Will proceed with surgery once ok with Cardiology. (2) Atrial fibrillation with RVR: Code(s): I48.91 - Unspecified atrial fibrillation Status: Acute (3) Cholelithiasis: Code(s): K80.20 - Calculus of gallbladder without cholecystitis without obstruction Status: Acute (4) Elevated liver enzymes: Code(s): R74.8 - Abnormal levels of other serum enzymes Status: Acute (5) Paroxysmal atrial fibrillation: Code(s): I48.0 - Paroxysmal atrial fibrillation Status: Acute Assessment and Plan: Eliquis on hold. Subjective Subjective Date/Time Seen: 09/13/21 15:52 Interval history: Patient was brought down for surgery this afternoon but was noted to be in A fib in preop. Once he was brought back to the OR and placed on the monitor, he was noted to be in RVR with rate in the 200s. He was denying chest pain, palpitations, or shortness of breath. Since this was a significant change, surgery was canceled and cardiology was consulted. Exam GI: Inspection: non-distended GI Palp: Yes Soft to palpation, Yes Tenderness to palpation present (GI) (mild epigastric) and No Guarding due to palpation present (GI) Objective Data Vital Signs Vital Signs: Vital Signs - 24 hr 09/12/21 20:07 09/12/21 20:00 09/13/21 04:52 Temperature 36.8 C 36.7 C Pulse Rate 88 78 Respiratory Rate 20 20 Blood Pressure 136/87 120/84 Pulse Oximetry 97 98 Oxygen Delivery Room Air Oxygen Flow Rate 09/13/21 08:00 09/13/21 12:25 09/13/21 13:00 Temperature 36.6 C 37.9 C H Pulse Rate 56 L 188 H Respiratory Rate 16 24 H Blood Pressure 172/110 H 121/79 Pulse Oximetry 98 96 Oxygen Delivery Room Air Room Air Room Air Oxygen Flow Rate 09/13/21 13:10 09/13/21 13:20 09/13/21 13:30 Temperature Pulse Rate 200 H 181 H 174 H Respiratory Rate 24 H 24 H Blood Pressure 144/74 H 142/81 H 137/82 Pulse Oximetry 96 100 Oxygen Delivery Room Air Simple Face Mask Oxygen Flow Rate 6 09/13/21 13:35 09/13/21 13:50 09/13/21 14:10 Temperature 37.7 C H Pulse Rate 149 H 105 H 150 H Respiratory Rate 24 H 24 H 26 H Blood Pressure 139/90 107/83 121/83 Pulse Oximetry 100 100 97 Oxygen Delivery Simple Face Mask Simple Face Mask Simple Face Mask Oxygen Flow Rate 6 6 6 09/13/21 14:25 09/13/21 14:40 09/13/21 14:55 Temperature Pulse Rate 115 H 133 H 154 H Respiratory Rate 26 H 26 H 26 H Blood Pressure 145/90 H 143/81 H 139/74 Pulse Oximetry 98 99 99 Oxygen Delivery Nasal Cannula Nasal Cannula Nasal Cannula Oxygen Flow Rate 2 2 2 09/13/21 15:10 09/13/21 15:25 Temperature Pulse Rate 116 H 132 H Respiratory Rate 26 H 26 H Blood Pressure 126/81 133/76 Pulse Oximetry 95 96 Oxygen Delivery Room Air Room Air Oxygen Flow Rate Intake/Output Intake/Output: Intake & Output 09/10/21 09/11/21 09/12/21 09/13/21 23:59 23:59 23:59 23:59 Intake Total 3440 2390 3675 1270 Balance 3440 2390 3675 1270 Meds/Results Medications: Active Medications Generic Name Dose Route Start Last Admin Trade Name Freq PRN Reason Stop Dose Admin Fentanyl Citrate 25 mcg 09/13/21 12:09 Fentanyl Citrate Inj (*Crx) 100 Mcg/2 Ml Vial IV PUSH Q2M PRN Pain Hydralazine HCl 10 mg 09/10/21 16:01 09/11/21 23:36 Hydralazine Hcl 20 Mg/Ml Vial IV PUSH 10 mg Q8H PRN Administration Syst BP >170, Diast BP >100 Sodium Chloride 1,000 mls @ 80 mls/hr 09/09/21 17:35 09/13/21 08:39 Normal Saline Iv IV CONT 80 mls/hr .[id number] HARPREET Administration Piperacillin/Tazobactam/Dextrose 3.375 gm in 50 mls @ 100 mls/hr 09/10/21 00:00 09/13/21 1
--- NOTE | 2021-09-13 16:04 | SUR.PHASEI ---
Addendum entered by Kaylee Au RN 09/13/21 16:05: Dr Agrawal aware of runs of 8-10 PVCs at a time. Reviewed recent repeat EKG. Original Note: 2525 Dr Agrawal at bedside.
--- NOTE | 2021-09-13 16:43 | PC.NURSE ---
This patient, Memo Soto, was received from PACU on 09/13/21 at 1643. Patient/family oriented to unit policies and routines.
[2021-09-13] MEDS: dilTIAZem 100 MG/100 ML 100 MG/100 ML BAG 15 MG IV CONT (16:44)
[2021-09-13] MEDS: POTASSIUM CHLORIDE 20 MEQ TABLET 40 MEQ PO (17:03)
[2021-09-13] MEDS: METOPROLOL TARTRATE 25 MG TABLET PO ×2 (17:03→21:42)
[2021-09-13 19:46] LABS: Thyroid Stimulating Hormone 0.109 uIU/mL (0.465-4.680)
[2021-09-13] MEDS: AMIODARONE 150 MG/D5W 100 ML 150 MG/100 ML BAG 600 MG IV CONT (20:42)
[2021-09-13] MEDS: ENOXAPARIN 100 MG/ML SYRINGE 85 MG SUB-Q (20:44)
[2021-09-13] MEDS: AMIODARONE 360 MG/D5W 200 ML 360 MG/200 ML BAG 33.33 MG IV CONT (21:00)
[2021-09-13 23:09] LABS: Troponin I 0.032 ng/mL (0.000-0.034)
[2021-09-14] VITALS (29 sets, daily range): BP systolic 108–164; BP diastolic 66–111; PULSE 67–181; RESP 20–36; TEMP 36.2–36.8; O2SAT 95–100
--- NOTE | 2021-09-14 | ECHO_ITS ---
Patient Info Name: Memo Soto Age: 75 years : 1945 Gender: Male Ht: 71 in Wt: 187 lbs BSA: 2.07 m2 HR: 143 bpm BP: 110 / 89 mmHg Heart Rhythm: Atrial Fibrillation Technical Quality: Fair Exam Date: 09/14/2021 7:56 AM Exam Location: [facility] Patient Status: Inpatient Admit Date: 09/09/2021 Staff Ordering Physician: Sobeida Agrawal MD Manager Project: Azul Juarez RDCS Attending Provider: Danay Liz PA-C Referring Physician: Tanja ALDRIDGE; Exam Type: CA echo doppler color flow Study Info Indications - afib, rvr Complete two-dimensional, color flow and Doppler transthoracic echocardiogram is performed. Summary 1. Complete two-dimensional, color flow and Doppler transthoracic echocardiogram is performed. 2. Mild left ventricular enlargement with normal wall thickness. Severe global hypokinesis is present, worse in the septum. Estimated ejection fraction 30%. Diastolic dysfunction is present. 3. Left atrial chamber dimension is moderately enlarged. 4. Mild pulmonary hypertension, estimated pulmonary arterial systolic pressure is 42 mmHg. 5. There is mild mitral valve regurgitation. 6. Dilated inferior vena cava with <50% collapse upon inspiration consistent with significantly elevated right atrial pressure, 20 mmHg. 7. Atrial fibrillation with rapid ventricular rate. Left Ventricle Left ventricular chamber dimension is mildly enlarged. Left ventricular systolic function is normal, estimated at 30-35%. There is no increased left ventricular wall thickness. Left ventricular septal wall motion is normal. The left ventricular diastolic function is abnormal. Right Ventricle Right ventricular chamber dimension is normal. Right ventricular systolic function is normal. Left Atria Left atrial chamber dimension is moderately enlarged. Right Atria Right atrial chamber dimension is normal. Aortic Valve The aortic valve is trileaflet. There is mild aortic valve sclerosis. There is no aortic valve stenosis. There is no aortic valve regurgitation. Pulmonic Valve The pulmonic valve is normal. There is no pulmonic valve stenosis. There is no pulmonic regurgitation. Mitral Valve The mitral valve has normal leaflets. There is no mitral valve stenosis. There is mild mitral valve regurgitation. Tricuspid Valve The tricuspid valve leaflets are normal. There is no significant tricuspid valve stenosis. There is trace tricuspid valve regurgitation. Mild pulmonary hypertension, estimated pulmonary arterial systolic pressure is 42 mmHg. Pericardium/Pleural The pericardium appears normal. There is no pericardial effusion. Inferior Vena Cava Dilated inferior vena cava with <50% collapse upon inspiration consistent with significantly elevated right atrial pressure, 20 mmHg. Aorta The aortic root size at the sinus of Valsalva is normal. The prox ascending aorta size is normal. Left Ventricular Outflow Tract Name Value Normal LVOT 2D LVOT Diameter 2.1 cm LVOT Doppler LVOT Peak Gradient 3 mmHg LVOT Mean Gradient
[2021-09-14] MEDS: FUROSEMIDE INJ 40 MG/4 ML VIAL IV PUSH (00:14)
[2021-09-14] MEDS: AMIODARONE 150 MG/D5W 100 ML 150 MG/100 ML BAG 600 MG IV CONT ×2 (00:14→06:08)
[2021-09-14] MEDS: AMIODARONE 360 MG/D5W 200 ML 360 MG/200 ML BAG 16.67 MG IV CONT (02:47)
[2021-09-14 05:14] LABS: Basophils Percent Auto 0.2 % (0.2-1.2); Eosinophils Percent Auto 0.1 % (0-4.4); Hematocrit 44.7 % (42.0-52.0); Hemoglobin 14.9 g/dL (14.0-18.0); Immature Granulocyte Absolute 0.08 K/mm3 (0.00-0.031); Immature Granulocyte Percent A 0.6 % (0-0.5); Lymphocytes Absolute Auto 0.67 K/mm3 (0.9-3.2); Mean Corpuscular HGB Conc 33.3 g/dl (32-36); Mean Corpuscular Hemoglobin 31.7 pg (26-34); Mean Corpuscular Volume 95.1 fl (80-100); Mean Platelet Volume 11.4 fl (7.4-10.4); Monocytes Absolute Auto 1.4 K/mm3 (0.1-0.6); Monocytes Percent Auto 10.3 % (2.6-8.5); Neutrophils Absolute Auto 11.2 K/mm3 (1.3-6.7); Neutrophils Percent Auto 83.8 % (45.5-73.1); Platelet Count Result 162 k/mm3 (150-375); Red Cell Distribution Width 14.8 % (11.5-14.5); White Blood Count 13.3 K/mm3 (4.5-10.0)
[2021-09-14 05:25] LABS: Alanine Aminotransferase 61 U/L (6-50); Albumin Level 3.2 g/dL (3.5-5.1); Alkaline Phosphatase 141 U/L (38-126); Aspartate Amino Transferase 48 U/L (17-59); Bilirubin Direct 0.3 mg/dL (0-0.3); Bilirubin,Total 3.8 mg/dL (0.2-1.3); Lipase 84 U/L (23-300); Magnesium 2.2 mg/dL (1.6-2.3)
[2021-09-14 05:33] LABS: Prealbumin 8.4 mg/dL (17.6-36.0)
[2021-09-14] MEDS: METOPROLOL TARTRATE 25 MG TABLET PO ×2 (05:35→20:59)
[2021-09-14 05:40] LABS: Anion Gap 4 mmol/L (8-16); Blood Urea Nitrogen 43 mg/dL (9-20); Calcium 7.6 mg/dL (8.4-10.2); Carbon Dioxide 29 mmol/L (22-30); Chloride 106 mmol/L (98-107); Estimated CRCL calculation 61 ml/min; Estimated Glomerular Filt Rate > 60; Glucose 122 mg/dL (65-110); Potassium 3.2 mmol/L (3.4-5.0); Sodium 139 mmol/L (137-145)
--- NOTE | 2021-09-14 06:09 | PC.NURSE ---
patients heart rate in the 180's and respirations 32. patient is refusing to use a bedpan. he was insisting on walking to the restroom. finally used a bedside comode.
[2021-09-14 06:26] LABS: NT Pro B Type Natriuretic Pept 2020 pg/mL (5-100); Troponin I 0.024 ng/mL (0.000-0.034)
[2021-09-14] MEDS: ENOXAPARIN 100 MG/ML SYRINGE 85 MG SUB-Q (09:00)
[2021-09-14] MEDS: POTASSIUM CHLORIDE 20 MEQ TABLET 40 MEQ PO (09:00)
[2021-09-14] MEDS: SODIUM CHLORIDE 0.9% IV 1,000 ML 80 ML IV CONT ×2 (09:00→20:59)
--- NOTE | 2021-09-14 09:09 | PM.PNCARD ---
Progress Note: A&P Assessment and Plan (1) Atrial fibrillation with RVR: Code(s): I48.91 - Unspecified atrial fibrillation Status: Acute Assessment and Plan: Patient with a long history of atrial fibrillation, probably paroxysmal and rarely symptomatic. Appears to have recurrent paroxysmal AFib, RVR, in preparation for surgery. Cholecystectomy was canceled. Heart rate is still not optimally controlled despite trying metoprolol, Cardizem, and amiodarone with several boluses. Echo has been done, not yet read TSH low, will check further thyroid panel to see if he has hyperthyroidisml. Eliquis on hold because of possible surgery Lovenox started yesterday Discussed with patient, I recommended BURT guided cardioversion. (2) Nonsustained ventricular tachycardia: Code(s): I47.2 - Ventricular tachycardia Status: Acute Assessment and Plan: Brief bursts of nonsustained ventricular tachycardia noted during AFib RVR Probably ventricular tachycardia rather than aberrantly conducted AFib Asymptomatic, and does not have symptoms consistent with CAD, with good exertional tolerance However, recommend an ischemia evaluation. Possibly can be done as outpatient. Hypokalemia,, will supplement (3) Acute diastolic CHF (congestive heart failure): Code(s): I50.31 - Acute diastolic (congestive) heart failure Status: Acute Assessment and Plan: Patient has developed acute CHF, possibly tachycardia induced. Echo is pending to evaluate LV function (4) Gallstone pancreatitis: Code(s): K85.10 - Biliary acute pancreatitis without necrosis or infection Status: Acute Assessment and Plan: Improved, anticipating cholecystectomy (5) Preoperative cardiovascular examination: Code(s): Z01.810 - Encounter for preprocedural cardiovascular examination Status: Acute Assessment and Plan: Cholecystectomy on hold for now, until cardiovascular status is stable. Subjective Date/time seen: 09/14/21 09:09 Review of Systems Review of Systems: Follow-up for atrial fibrillation RVR Date of service 09/14/2021: The patient had a lot more trouble with AFib RVR yesterday, not responding well to IV metoprolol, IV Cardizem at 15 milligrams/hour and eventually changing to IV amiodarone. However his heart rate is still poorly controlled, running in the 150s despite 2 extra boluses of IV amiodarone and he has gone into heart failure with some shortness of breath last night, pulmonary vascular congestion as chest x-ray and elevated proBNP. He was given Lasix 40 mg IV push x1 with improvement. No chest pain, no gallbladder pain. Constitutional: Constitutional: Reports fatigue ENT: Denies epistaxis Cardiovascular: Cardiovascular: Denies chest pain, Denies pedal edema and Denies palpitations Respiratory: Respiratory: Reports dyspnea and Reports dyspnea on exertion Gastrointestinal: Gastrointestinal: Denies abdominal pain, Denies hematochezia and Denies heartburn Comments: Complains of frequent belching Musculoskeletal: Musculoskeletal: Denies back pain Integumentary/Breasts: Skin/Breast: Denies rash Neurologic: Denies confusion Psychiatric: Psychiatric: Denies confusion Exam Const: General: cooperative and comfortable; No confusion Orientation/consciousness: oriented to person, patient oriented x3 and No confusion Other: Appears tired HENMT: Mouth: Yes moist mucous membranes Eyes: EOM: EOMs intact bilaterally Resp: Effort & Inspection: normal respiratory effort Auscultation: rales (Few scattered rales in the right lower lobe) Cardio: Rate: tachycardic Rhythm: abnormal rhythm irregularly irregular Heart sounds: no murmurs GI: Inspection: normal to inspection GI Palp: No abdominal tenderness Skin: General skin exam: no rashes or lesions noted Neuro: General: oriented to person, patient oriented x3 and No confusion Extrem: Right lower
--- NOTE | 2021-09-14 09:17 | WPDMODSED ---
Moderate Sedation Note-Pt Data Patient Data Diagnosis: AFib RVR, unable to control heart rate Present Complaint: Shortness of breath, CHF Procedure to be performed/Plan: BURT guided cardioversion with conscious sedation Allergies Allergy/AdvReac Type Severity Reaction Status Date / Time No Known Allergies Allergy Verified 09/13/21 12:34 Home Medications Medication Instructions Recorded Confirmed Type apixaban 5 mg tablet (Eliquis) 5 mg PO BID 05/05/19 09/09/21 History Current Medications: Active Medications Enoxaparin Sodium (Enoxaparin 100 Mg/Ml Syringe) 85 mg SUB-Q Q12HR [facility] Last Admin: 09/13/21 20:44 Dose: 85 mg Hydralazine HCl (Hydralazine Hcl 20 Mg/Ml Vial) 10 mg IV PUSH Q8H PRN PRN Reason: Syst BP >170, Diast BP >100 Last Admin: 09/11/21 23:36 Dose: 10 mg Sodium Chloride (Normal Saline Iv) 1,000 mls @ 80 mls/hr IV CONT .[id number] [facility] Last Admin: 09/13/21 18:46 Dose: 80 mls/hr Piperacillin/Tazobactam/Dextrose (Zosyn 3.375 Gm/D5w 50ml Pm) 3.375 gm in 50 mls @ 100 mls/hr IVPB Q6HR [facility] Last Admin: 09/14/21 05:35 Dose: 100 mls/hr Amiodarone HCl/Dextrose (Nexterone 360 Mg/D5w 200 Ml) 360 mg in 200 mls @ 16.667 mls/hr IV CONT .Q12H [facility]; Protocol Last Admin: 09/14/21 02:47 Dose: 0.5 mg/min, 16.67 mls/hr Metoprolol Tartrate (Metoprolol Tartrate 25 Mg Tablet) 25 mg PO Q8HR [facility] Last Admin: 09/14/21 05:35 Dose: 25 mg Morphine Sulfate (Morphine Sulfate (*Crx) 2 Mg/Ml Inj) 2 mg IV PUSH Q4H PRN PRN Reason: Pain Rated 7-10 Last Admin: 09/13/21 06:02 Dose: 2 mg Perflutren Lipid Microsphere (Perflutren Lipid Microspheres 1.5 Ml Vial Diluted To 10 Ml Total Volume) 0 ml IV PUSH ONCE PRN; Protocol PRN Reason: adequate visualization Simethicone (Simethicone 80 Mg Tab.Chew) 80 mg PO QID PRN PRN Reason: Gas Discomfort Last Admin: 09/10/21 22:46 Dose: 80 mg Sedation/Anesthesia: No previous sedation/anesthesia problems (including family history). [facility] Past Medical History Medical History Chronic anticoagulation Elevated liver enzymes Gallstone pancreatitis Kidney stones Leukocytosis Paroxysmal atrial fibrillation Upper abdominal pain Surgical History Surgical History History of appendectomy History of colonoscopy with polypectomy History of vasectomy Family History Family History Mother Family history of malignant neoplasm of uterus, Onset Age: 52 Patient's mother is Father Patient's father is , Onset Age: 84 Acute myocardial infarction, Onset Age: 84 Social History Social History Social History: Surrogate decision maker: Mikayla Lema, sister. Code status: Full code. Smoking status: Former smoker Alcohol intake: current Alcohol use details: Rare alcohol use in moderation. Substance use: never Living arrangements: alone Occupation/Education: retired Spiritual care concerns: No Mod Sed Physical Exam Physical Exam Pre Procedural Exam: Normal: Appearance, Eyes, Ears, Nose, Neck, Throat, Airway, Heart Size, Neuro Exam, Abdomen, Extremities and Skin and Variation: Lungs (Few rales right lower lobe), Heart Rate (Tachycardic) and Heart Rhythm (Irregular) Hours since solid foods: 12 Hours since liquid intake: 12 Mallampati Classification: class III Internal Medicine - PN: Obj Da Vital Signs Vital Signs: Vital Signs - 24 hr 09/13/21 12:25 09/13/21 13:00 09/13/21 13:10 Temperature 97.9 F 100.3 F H Pulse Rate 56 L 188 H 200 H Respiratory Rate 16 24 H 24 H Blood Pressure 172/110 H 121/79 144/74 H Pulse Oximetry 98 96 96 Oxygen Delivery Room Air Room Air Room Air Oxygen Flow Rate 09/13/21 13:20 09/13/21 13:30 09/13/21 13:35 Temperature Pulse Rate 181 H 174 H 149 H Res
--- NOTE | 2021-09-14 10:25 | WPDHPUPDATE1 ---
History and Physical Update Update Date/Time: 09/14/21 10:25 History and Physical has been reviewed, including an updated exam of the patient. There are NO changes in the patient's condition. Risks, benefits, and alternatives have been discussed and questions answered. Patient agrees to proceed with procedure.
--- NOTE | 2021-09-14 11:05 | PM.OP ---
Procedure Note - Brief Procedure Note - Brief Date of procedure: 09/14/21 Pre-op diagnosis: Pancreatitis/cholecystitis AFib RVR, CHF Procedure performed: Conscious sedation, BURT guided cardioversion Description of procedure: Uneventful cardioversion Surgeon: Sobeida Agrawal MD Findings: Severe global hypokinesis, EF 30%
--- NOTE | 2021-09-14 11:06 | W.PM.PROC2 ---
Procedure Note - Detailed Date of Procedure 09/14/21 Pre-op Diagnosis AFib RVR, CHF Post-op Diagnosis Same Procedure Performed Conscious sedation BURT guided cardioversion Surgeon Sobeida Agrawal MD Indications 75-year-old male with a remote history of AFib, found to have AFib RVR prior to his cholecystectomy yesterday. His AFib rate has been very difficult to control despite metoprolol, Cardizem and now amiodarone. In addition he has nonsustained ventricular tachycardia and developed CHF overnight. Findings Atrial fib, s/p Successful BURT-guided cardioversion Nonsustained ventricular tachycardia Unable to pass the probe through the gastroesophageal junction; patient may have a stricture. Severe left ventricular dysfunction; unclear if the patient has a pre-existing cardiomyopathy versus rate related cardiomyopathy. Description of Procedure Conscious sedation: Assessment: The patient has no history of anesthesia problems. The patient's oropharynx is clear. The patient was deemed to be a good candidate for conscious sedation. The patient had continuous hemodynamic and oximetric monitoring during the procedure. Start time: 1052 Completion time: 1008 Total conscious sedation time: 16 minutes Medications Used: Versed 2 mg, fentanyl 100 mcg IV push Trained observer: Thao Nolasco RN Outcome: The patient tolerated the procedure well with no complications. Procedure: After informed consent the patient had Hurricaine spray the hypopharynx. The patient had conscious sedation as described above. The transesophageal echo probe was introduced in the esophagus without difficulty. Imaging was obtained in multiplane views. Agitated saline was injected to evaluate for intracardiac shunting. I was not able to pass the probe through the gastroesophageal junction to obtain transgastric views. The patient tolerated the procedure well with no complications. Findings: The left atrium was enlarged with spontaneous contrast. There was spontaneous contrast also in the left atrial appendage but no thrombus The atrial septum appeared intact. Mitral valve appeared normal, with no stenosis or prolapse. The left ventricle had had normal size and thickness with severe global hypokinesis. EF estimated to be 30%. The aortic root and valve were normal. The ascending aorta and aortic arch more normal, and descending thoracic aorta showed mild atherosclerosis.. The right atrium was enlarged with spontaneous contrast. Thetricuspid valve, right ventricle, pulmonic valve and pulmonic artery were all normal. There is no pericardial effusion. When agitated saline was injected intravenously there was no evidence of intracardiac shunting during normal respiration and cough Colorflow Doppler Findings: Mild to moderate mitral regurgitation, mild tricuspid insufficiency Cardioversion: I was concerned about the pt's stroke risk in view of his spontaneous contrast, but in view of our inability to control his a fib rate and his CHF I felt it best to proceed with the cardioversion. After informed consent and the above conscious sedation, the patient underwent elective electrical synchronized cardioversion with 150 joules of biphasic energy and converted to normal sinus rhythm. There were no complications. Post cardioversion EKG: NSR rate 68, T-wave inversion V1 through V4 noted suggestive of anterior ischemia Plan: Change amiodarone to p.o. Change Lovenox to Eliquis ARB and beta-blockers, etc., for cardiomyopathy Discussed the above; rec to the patient about obtaining a Lexiscan tomorrow because of his ventricular tachycardia and abnml EKG, to rule out underlying CAD. Pt agrees. Discussed risk of sudden cardiac with the the patient and rec he be discharged with a LifeVest until he has recovery of left ventricular function. Pt agrees. Cholecystectomy when patient's cardiac status becomes more stable and pt out of CHF-- maybe in a couple of weeks?
[2021-09-14 11:18] LABS: Thyroid Stimulating Hormone Reflex 0.122 uIU/mL (0.465-4.68)
--- NOTE | 2021-09-14 11:30 | ECG_ITS ---
Measurements Intervals [place] Rate: 68 P: 27 PA: 136 QRS: 41 QRSD: 87 T: 104 QT: 460 QTc: 492 Interpretive Statements SINUS RHYTHM WITH OCCASIONAL SUPRAVENTRICULAR PREMATURE COMPLEXES MODERATE T-WAVE ABNORMALITY, NEW COMPARED TO THE PRIOR TRACING, CONSIDER ANTERIOR ISCHEMIA COMPARED TO ECG 09/13/2021 15:47:06 SINUS RHYTHM NOW PRESENT AND T-WAVE INVERSION ANTERIORLY IS NEW Electronically Signed On 09-14-2021 12:47:04 CDT by Sobeida Agrawal M.D.
--- NOTE | 2021-09-14 13:00 | P.PNIM_ITS ---
Progress Note: A&P Assessment and Plan (1) Acute pancreatitis: Code(s): K85.90 - Acute pancreatitis without necrosis or infection, unspecified Status: Acute Assessment and Plan: Acute pancreatitis secondary to gallstones * Lipase 17,000 on presentation. Now normal * Antiemetics and analgesics available as needed * Appreciate general surgery and Gastroenterology consultation * MRCP reviewed. No stones or strictures of common bile duct. (2) Cholelithiasis: Code(s): K80.20 - Calculus of gallbladder without cholecystitis without obstruction Status: Acute Assessment and Plan: Cholelithiasis with possible cholecystitis on initial CT * Appreciate general surgery consultation * MRCP no evidence of cholelithiasis. * Planned for laparoscopic cholecystectomy but patient went into afib rvr. Now on hold until stable from cardiac standpoint. * Eliquis on hold perioperatively but resumed by cardiology today s/p BURT cardioversion * Continue IV Zosyn. WBC improving (3) Transaminitis: Code(s): R74.01 - Elevation of levels of liver transaminase levels Status: Acute Assessment and Plan: Secondary to above * LFTs with downward trend. AST normalized. * Total bili remains elevated but improving. Unconjugated hyperbilirubinemia. Will evaluate labs for possible hemolysis though seems unlikely as patient is not anemic. (4) Hyperglycemia: Code(s): R73.9 - Hyperglycemia, unspecified Status: Acute Assessment and Plan: Likely secondary to acute illness * A1c is 5.7 * Continue to monitor fasting glucose on daily BMP (5) Paroxysmal atrial fibrillation: Code(s): I48.0 - Paroxysmal atrial fibrillation Status: Acute Assessment and Plan: Rate was controlled on admission * Eliquis was on hold for lap syeda * Went into afib rvr which was refractory to metoprolol, cardizem, and amio drip * Taken to OR today for BURT guided cardioversion * Amio changed to PO * Eliquis restarted * Lexiscan tomorrow * Further management per cardiology (6) Elevated blood pressure reading: Code(s): R03.0 - Elevated blood-pressure reading, without diagnosis of hypertension Status: Acute Assessment and Plan: Blood pressure has been elevated during admission. Improved today. Last BP 114/76 * Patient has no history of hypertension * Started on Losartan and Metoprolol per cardiology Subjective Date/time seen: 09/14/21 13:00 Interval history: 75-year-old male with a history of paroxysmal atrial fibrillation on chronic anticoagulation and kidney stones who is seen in follow-up for gallstone pancreatitis. Developed afib rvr prior to cholecystectomy yesterday. Pt had just come from BURT guided cardioversion this afternoon when I saw him. Still groggy from anesthesia but with no complaints. Denies cp/sob. Denies abd pain, nausea, vomiting. Review of Systems Review of Systems: All systems reviewed & are unremarkable except as noted in HPI and below Exam Narrative: General: Well-nourished, well-appearing 75-year-old male, supine in bed, comfortable, NARD Neuro: awake, alert and oriented x4, speech clear, no focal neuro deficits noted HEENMT: normocephalic, atraumatic, EOMI, bilateral scleral icterus Respiratory: clear to auscultation bilaterally, nonlabored breathing Cardio: regular rate, regular rhythm with S1-S2 Abdomen: nondistended, normoactive bowel sound
--- NOTE | 2021-09-14 13:00 | PM.IMPN ---
Progress Note: A&P Assessment and Plan (1) Acute pancreatitis: Code(s): K85.90 - Acute pancreatitis without necrosis or infection, unspecified Status: Acute Assessment and Plan: Acute pancreatitis secondary to gallstones Lipase 17,000 on presentation. Now normal Antiemetics and analgesics available as needed Appreciate general surgery and Gastroenterology consultation MRCP reviewed. No stones or strictures of common bile duct. (2) Cholelithiasis: Code(s): K80.20 - Calculus of gallbladder without cholecystitis without obstruction Status: Acute Assessment and Plan: Cholelithiasis with possible cholecystitis on initial CT Appreciate general surgery consultation MRCP no evidence of cholelithiasis. Planned for laparoscopic cholecystectomy but patient went into afib rvr. Now on hold until stable from cardiac standpoint. Eliquis on hold perioperatively but resumed by cardiology today s/p BURT cardioversion Continue IV Zosyn. WBC improving (3) Transaminitis: Code(s): R74.01 - Elevation of levels of liver transaminase levels Status: Acute Assessment and Plan: Secondary to above LFTs with downward trend. AST normalized. Total bili remains elevated but improving. Unconjugated hyperbilirubinemia. Will evaluate labs for possible hemolysis though seems unlikely as patient is not anemic. (4) Hyperglycemia: Code(s): R73.9 - Hyperglycemia, unspecified Status: Acute Assessment and Plan: Likely secondary to acute illness A1c is 5.7 Continue to monitor fasting glucose on daily BMP (5) Paroxysmal atrial fibrillation: Code(s): I48.0 - Paroxysmal atrial fibrillation Status: Acute Assessment and Plan: Rate was controlled on admission Eliquis was on hold for lap syeda Went into afib rvr which was refractory to metoprolol, cardizem, and amio drip Taken to OR today for BURT guided cardioversion Amio changed to PO Eliquis restarted Lexiscan tomorrow Further management per cardiology (6) Elevated blood pressure reading: Code(s): R03.0 - Elevated blood-pressure reading, without diagnosis of hypertension Status: Acute Assessment and Plan: Blood pressure has been elevated during admission. Improved today. Last BP 114/76 Patient has no history of hypertension Started on Losartan and Metoprolol per cardiology Subjective Date/time seen: 09/14/21 13:00 Interval history: 75-year-old male with a history of paroxysmal atrial fibrillation on chronic anticoagulation and kidney stones who is seen in follow-up for gallstone pancreatitis. Developed afib rvr prior to cholecystectomy yesterday. Pt had just come from BURT guided cardioversion this afternoon when I saw him. Still groggy from anesthesia but with no complaints. Denies cp/sob. Denies abd pain, nausea, vomiting. Review of Systems Review of Systems: All systems reviewed & are unremarkable except as noted in HPI and below Exam Narrative: General: Well-nourished, well-appearing 75-year-old male, supine in bed, comfortable, NARD Neuro: awake, alert and oriented x4, speech clear, no focal neuro deficits noted HEENMT: normocephalic, atraumatic, EOMI, bilateral scleral icterus Respiratory: clear to auscultation bilaterally, nonlabored breathing Cardio: regular rate, regular rhythm with S1-S2 Abdomen: nondistended, normoactive bowel sounds, soft, non tender Extremities: no edema, erythema, or tenderness to palpation Skin: mild jaundice, no rashes or lesions, warm and dry Psych: appropriate mood and affect, judgment and insight intact Objective Data Vital Signs Vital Signs: Vital Signs - 24 hr 09/13/21 13:10 09/13/21 13:20 09/13/21 13:30 Temperature Pulse Rate 200 H 181 H 174 H Respiratory Rate 24 H 24 H Blood Pressure 144/74 H 142/81 H 137/82 Pulse Oximetry 96 100 Oxygen Delivery Room Air Simple Fa
[2021-09-14 14:20] LABS: Free T4 Free Thyroxine Reflex 1.36 ng/dL (0.78-2.19)
[2021-09-14] MEDS: FUROSEMIDE INJ 40 MG/4 ML VIAL 20 MG IV PUSH (15:12)
[2021-09-14] MEDS: LOSARTAN POTASSIUM 25 MG TABLET PO (15:12)
[2021-09-14] MEDS: POTASSIUM CHLORIDE 20 MEQ TABLET PO (15:13)
--- NOTE | 2021-09-14 16:03 | WPDGIPROGNO ---
Progress Note: A&P Assessment and Plan (1) Gallstone pancreatitis: Code(s): K85.10 - Biliary acute pancreatitis without necrosis or infection Status: Acute Assessment and Plan: MRCP reviewed and showed acute interstitial edematous pancreatitis with acute peripancreatic fluid collection, cholelithiasis without evidence of cholecystitis with normal bile duct size or stricture now surgery probably as outpatient given recent cardiac event clinically is much better and tolerating diet TG level normal and denies etoh (2) Elevated liver enzymes: Code(s): R74.8 - Abnormal levels of other serum enzymes Status: Acute Assessment and Plan: bilirubin trending down probably from pancreatitis hepatitis panel negative no choledocholithiasis (3) Abnormal computed tomography of abdomen and pelvis: Code(s): R93.5 - Abnormal findings on diagnostic imaging of other abdominal regions, including retroperitoneum Status: Acute Assessment and Plan: MRCP reviewed (4) Paroxysmal atrial fibrillation: Code(s): I48.0 - Paroxysmal atrial fibrillation Status: Acute Assessment and Plan: treated by cardiology (5) Chronic anticoagulation: Code(s): Z79.01 - FDC (current) use of anticoagulants Status: Acute (6) Upper abdominal pain: Code(s): R10.10 - Upper abdominal pain, unspecified Status: Acute Assessment and Plan: almost gone Subjective Date/time seen: 09/14/21 16:03 Interval history: yesterday had Afib with RVR, treted with amiodarone and cardioversion (he has known h/o Afib)- procedure was canceled. He is feeling much better today, pain is almost gone Review of Systems Review of Systems: All systems reviewed & are unremarkable except as noted in HPI and below Exam Const: General: comfortable and no acute distress HENMT: General nose exam: Normal nares present Eyes: General: appearance normal, both eyes and all related structures Neck: Neck: supple Resp: Auscultation: clear to auscultation bilaterally Cardio: Rhythm: abnormal rhythm irregularly irregular GI: GI Palp: Yes Soft to palpation, Yes Tenderness to palpation present (GI) (minimal pain, non tender- improved) and No Guarding due to palpation present (GI) Skin: Other: less icteric Neuro: Speech: normal speech Extrem: General: normal to inspection Objective Data Vital Signs Vital Signs: Vital Signs - 24 hr 09/13/21 16:08 09/13/21 16:44 09/13/21 17:03 Temperature Pulse Rate 123 H 188 H 164 H Respiratory Rate 24 H Blood Pressure 128/81 Pulse Oximetry 96 Oxygen Delivery Room Air Oxygen Flow Rate 09/13/21 20:42 09/13/21 20:00 09/13/21 21:00 Temperature Pulse Rate 190 H 190 H 190 H Respiratory Rate 24 H Blood Pressure Pulse Oximetry 96 Oxygen Delivery Room Air Oxygen Flow Rate 09/13/21 21:42 09/13/21 22:00 09/13/21 20:00 Temperature 98.3 F Pulse Rate 190 H 100 110 H Respiratory Rate 20 Blood Pressure 134/78 Pulse Oximetry 95 Oxygen Delivery Oxygen Flow Rate 09/13/21 22:00 09/14/21 00:14 09/14/21 00:00 Temperature Pulse Rate 137 H 168 H 168 H Respiratory Rate 20 Blood Pressure Pulse Oximetry 95 Oxygen Delivery Room Air Oxygen Flow Rate 09/14/21 00:00 09/14/21 02:00 09/14/21 02:47 Temperature 97.2 F L Pulse Rate 105 H 165 H 165 H Respiratory Rate 34 H Blood Pressure 119/89 Pulse Oximetry 96 Oxygen Delivery Oxygen Flow Rate 09/14/21 00:00 09/14/21 00:00 09/14/21 04:00 Temperature Pulse Rate 165 H 131 H 170 H Respiratory Rate 34 H Blood Pressure Pulse Oximetry 96 Oxygen Delivery Room Air Oxygen Flow Rate 09/14/21 04:00 09/14/21 05:35 09/14/21 06:08 Temperature Pulse Rate 145 H 160 H 181 H Respiratory Rate Blood Pressure Pulse Oximetry Oxygen Delivery Oxygen Flow Rate 09/14/21 06:00 09/14/21 0
--- NOTE | 2021-09-14 16:30 | PM.PNGS ---
Progress Note: A&P Assessment and Plan (1) Gallstone pancreatitis: Code(s): K85.10 - Biliary acute pancreatitis without necrosis or infection Status: Acute Assessment and Plan: Lap syeda with IOC on hold due to arrhythmia and cardiac evaluation. Patient underwent successful BURT-guided cardioversion today. Shannan restarted tonight. Could plan surgery as an outpatient once okay with Cardiology to hold anticoagulation and proceed. (2) Atrial fibrillation with RVR: Code(s): I48.91 - Unspecified atrial fibrillation Status: Acute (3) Cholelithiasis: Code(s): K80.20 - Calculus of gallbladder without cholecystitis without obstruction Status: Acute (4) Elevated liver enzymes: Code(s): R74.8 - Abnormal levels of other serum enzymes Status: Acute Plan I have discussed the patient's case and plan of care with Dr. Ronquillo. Subjective Subjective Date/Time Seen: 09/14/21 16:30 Patient reports: no new complaints, feels better and tolerating a regular diet Interval history: Patient seen and examined. He reports feeling great today with no specific complaints. He underwent a cardioversion this morning and has since been doing well. He is tolerating a low fat diet. Denies abdominal pain, nausea, or vomiting. Review of Systems Review of Systems: All systems reviewed & are unremarkable except as noted in HPI and below Exam Const: General: alert; No acute distress Orientation/consciousness: patient oriented x3 GI: Inspection: non-distended GI Palp: Yes Soft to palpation, Yes Tenderness to palpation present (GI) (very mild RUQ TTP that pt reports is significantly improved), No Guarding due to palpation present (GI) and No Rebound tenderness present Auscultation: normal bowel sounds Neuro: General: moves all extremities and no focal motor deficits Extrem: General: normal to inspection Psych: Judgement: Good judgement present (Psych) Objective Data Vital Signs Vital Signs: Vital Signs - 24 hr 09/13/21 16:44 09/13/21 17:03 09/13/21 20:42 Temperature Pulse Rate 188 H 164 H 190 H Respiratory Rate Blood Pressure Pulse Oximetry Oxygen Delivery Oxygen Flow Rate 09/13/21 20:00 09/13/21 21:00 09/13/21 21:42 Temperature Pulse Rate 190 H 190 H 190 H Respiratory Rate 24 H Blood Pressure Pulse Oximetry 96 Oxygen Delivery Room Air Oxygen Flow Rate 09/13/21 22:00 09/13/21 20:00 09/13/21 22:00 Temperature 98.3 F Pulse Rate 100 110 H 137 H Respiratory Rate 20 Blood Pressure 134/78 Pulse Oximetry 95 Oxygen Delivery Oxygen Flow Rate 09/14/21 00:14 09/14/21 00:00 09/14/21 00:00 Temperature 97.2 F L Pulse Rate 168 H 168 H 105 H Respiratory Rate 20 34 H Blood Pressure 119/89 Pulse Oximetry 95 96 Oxygen Delivery Room Air Oxygen Flow Rate 09/14/21 02:00 09/14/21 02:47 09/14/21 00:00 Temperature Pulse Rate 165 H 165 H 165 H Respiratory Rate Blood Pressure Pulse Oximetry Oxygen Delivery Oxygen Flow Rate 09/14/21 00:00 09/14/21 04:00 09/14/21 04:00 Temperature Pulse Rate 131 H 170 H 145 H Respiratory Rate 34 H Blood Pressure Pulse Oximetry 96 Oxygen Delivery Room Air Oxygen Flow Rate 09/14/21 05:35 09/14/21 06:08 09/14/21 06:00 Temperature Pulse Rate 160 H 181 H 178 H Respiratory Rate Blood Pressure Pulse Oximetry Oxygen Delivery Oxygen Flow Rate 09/14/21 04:00 09/14/21 08:00 09/14/21 10:45 Temperature 97.3 F L 97.8 F Pulse Rate 163 H 125 H 148 H Respiratory Rate 32 H 24 H 30 H Blood Pressure 128/84 117/97 H 114/87 Pulse Oximetry 96 97 96 Oxygen Delivery Nasal Cannula Oxygen Flow Rate 2 09/14/21 10:55 09/14/21 10:50 09/14/21 11:00 Temperature Pulse Rate 152 H 146 H 147 H Respiratory Rate 36 H 28 H 32 H Blood Pressure 121/95 H 136/111 H 122/105 H Pulse Oximetry 97 97 99 Oxygen Delivery Nasal Cannula
[2021-09-14] MEDS: AMIODARONE HCL 200 MG TABLET 400 MG PO (17:34)
[2021-09-14] MEDS: APIXABAN 5 MG TABLET PO (20:59)
[2021-09-15] VITALS (12 sets, daily range): BP systolic 146–165; BP diastolic 54–80; PULSE 76–88; RESP 18–28; TEMP 36.6–37; O2SAT 95–97
[2021-09-15 05:01] LABS: Basophils Percent Auto 0.2 % (0.2-1.2); Eosinophils Percent Auto 0.3 % (0-4.4); Hemoglobin 14.2 g/dL (14.0-18.0); Immature Granulocyte Absolute 0.14 K/mm3 (0.00-0.031); Lymphocytes Absolute Auto 0.76 K/mm3 (0.9-3.2); Lymphocytes Percent Auto 5.5 % (18.3-44.2); Mean Corpuscular HGB Conc 32.3 g/dl (32-36); Mean Corpuscular Hemoglobin 31.1 pg (26-34); Mean Corpuscular Volume 96.5 fl (80-100); Mean Platelet Volume 10.9 fl (7.4-10.4); Monocytes Absolute Auto 1.6 K/mm3 (0.1-0.6); Monocytes Percent Auto 11.6 % (2.6-8.5); Neutrophils Absolute Auto 11.2 K/mm3 (1.3-6.7); Neutrophils Percent Auto 81.4 % (45.5-73.1); Platelet Count Result 174 k/mm3 (150-375); Red Blood Count 4.56 M/mm3 (4.6-6.20); Red Cell Distribution Width 14.9 % (11.5-14.5); White Blood Count 13.8 K/mm3 (4.5-10.0)
[2021-09-15 05:23] LABS: Alanine Aminotransferase 50 U/L (6-50); Albumin Level 3.2 g/dL (3.5-5.1); Alkaline Phosphatase 132 U/L (38-126); Anion Gap 1 mmol/L (8-16); Aspartate Amino Transferase 38 U/L (17-59); Bilirubin,Total 2.8 mg/dL (0.2-1.3); Blood Urea Nitrogen 32 mg/dL (9-20); Calcium 7.6 mg/dL (8.4-10.2); Carbon Dioxide 30 mmol/L (22-30); Chloride 107 mmol/L (98-107); Estimated CRCL calculation 56 ml/min; Estimated Glomerular Filt Rate > 60; Glucose 106 mg/dL (65-110); Lipase 85 U/L (23-300); Potassium 3.5 mmol/L (3.4-5.0); Sodium 138 mmol/L (137-145)
--- NOTE | 2021-09-15 08:00 | EST_ITS ---
Patient Info Name: Memo Soto Age: 75 years : 1945 Gender: Male Ht: 71 in Wt: 187 lbs BSA: 2.07 m2 HR: 81 bpm BP: 171 / 84 mmHg Heart Rhythm: Sinus Rhythm Exam Date: 09/15/2021 8:29 AM Exam Location: [facility] Stress Patient Status: Inpatient Admit Date: 09/09/2021 Staff Ordering Physician: Sobeida Agrawal MD Attending Provider: Danay Liz PA-C Nurse: Celeste Singleton Exam Type: CA stress sharon w NM Study Info Indications I48.1 - Persistent atrial fibrillation R94.31 - Abnormal electrocardiogram ECG EKG A regadenoson stress test was performed. Summary 1. Resting abnormal EKG with anterior T-wave inversion, occasional PVCs and ventricular couplets. 2. No abnormal ST-T wave changes with lexiscan. 3. Nuclear test results to follow. Protocol: Lexiscan Stress ECG Details Stage: REST Duration (min): 1 min : 46 sec HR (bpm): 81 SBP (mmHg): 171 DBP (mmHg): 84 Stage: REST Duration (min): 4 min : 42 sec HR (bpm): 80 SBP (mmHg): 171 DBP (mmHg): 84 Stage: STAGE 1 Duration (min): 0 min : 59 sec HR (bpm): 88 SBP (mmHg): 170 DBP (mmHg): 82 Stage: RECOVERY Duration (min): 1 min : 0 sec HR (bpm): 95 SBP (mmHg): 170 DBP (mmHg): 82 Stage: RECOVERY Duration (min): 2 min : 0 sec HR (bpm): 94 SBP (mmHg): 170 DBP (mmHg): 82 Stage: RECOVERY Duration (min): 3 min : 0 sec HR (bpm): 96 SBP (mmHg): 146 DBP (mmHg): 80 Stage: RECOVERY Duration (min): 3 min : 7 sec HR (bpm): 95 SBP (mmHg): 146 DBP (mmHg): 80 Rest HR: 80 bpm Peak HR: 104 bpm Rest Sys BP: 171 mmHg Peak Sys BP: 170 mmHg Max Pred HR: 146 bpm % Max Pred HR: 71 % Target HR: 124 bpm Max RPP: 17,680 bpm*mmHg BP Response: Normal blood pressure response Termination Reason: Completed protocol Cardiac Symptoms: None Total Time: 1 min : 0 sec Rest Justin BP: 84 mmHg Peak Justin BP: 82 mmHg Total Dose: 0.4 mg Resting ECG Normal sinus rhythm. Anterior T-wave inversion. Occasional PVCs, ventricular couplets and APCs. Stress ECG No abnormal ST/T wave changes with Lexiscan. Arrhythmias Occasional PVCs. Report Signatures
--- NOTE | 2021-09-15 08:57 | PM.PNCARD ---
Progress Note: A&P Assessment and Plan (1) Atrial fibrillation with RVR: Code(s): I48.91 - Unspecified atrial fibrillation Status: Acute Assessment and Plan: Patient with a long history of atrial fibrillation, probably paroxysmal and rarely symptomatic. Appears to have recurrent paroxysmal AFib, RVR, in preparation for surgery. Cholecystectomy was canceled. s/p BURT/CV, maintaining sinus rhythm TSH low, will check further thyroid panel to see if he has hyperthyroidism Continue systemic a/c with eliquis without inturruption for at least 30 days post CV OK for discharge home from a cardiac standpoint. (2) Nonsustained ventricular tachycardia: Code(s): I47.2 - Ventricular tachycardia Status: Acute Assessment and Plan: Brief bursts of nonsustained ventricular tachycardia noted during AFib RVR Probably ventricular tachycardia rather than aberrantly conducted AFib Asymptomatic, and does not have symptoms consistent with CAD, with good exertional tolerance Monitor electrolytes and replace as needed to keep K+ >4.0 and Mag >2.0. (3) Acute diastolic CHF (congestive heart failure): Code(s): I50.31 - Acute diastolic (congestive) heart failure Status: Acute Assessment and Plan: Patient has developed acute CHF, possibly tachycardia induced. Echo showed EF of 30% with diastolic dysfunction. EF on lexiscan today measured at 54%, improved now that he is in sinus rhythm. (4) Gallstone pancreatitis: Code(s): K85.10 - Biliary acute pancreatitis without necrosis or infection Status: Acute Assessment and Plan: Improved, anticipating cholecystectomy as an outpatient (5) Preoperative cardiovascular examination: Code(s): Z01.810 - Encounter for preprocedural cardiovascular examination Status: Acute Assessment and Plan: Cholecystectomy on hold for now, until cardiovascular status is stable. Subjective Date/time seen: 09/15/21 08:57 Cardiology follow up for atrial fibrillation, CHF He feels okay today. No major complaints. Denies any palpitations, chest pain, shortness of breath. He Review of Systems Constitutional: Constitutional: Reports fatigue and Denies fever(s) ENT: Reports system reviewed and no additional complaints, except as documented and Denies epistaxis Cardiovascular: Cardiovascular: Denies chest pain, Denies pedal edema, Denies lightheadedness, Denies palpitations, Reports dyspnea and Reports dyspnea on exertion Respiratory: Respiratory: Denies chest congestion, Reports dyspnea and Reports dyspnea on exertion Gastrointestinal: Gastrointestinal: Denies abdominal pain, Denies hematochezia and Denies heartburn Musculoskeletal: Musculoskeletal: Reports no additional musculoskeletal complaints and Denies back pain Integumentary/Breasts: Skin/Breast: Reports system reviewed and no additional complaints, except as docu and Denies rash Neurologic: Reports system reviewed and no additional complaints, except as documented, Denies behavioral changes and Denies confusion Psychiatric: Psychiatric: Denies behavioral changes and Denies confusion Endocrine: Endocrine: Reports fatigue and Denies palpitations Exam Const: General: cooperative, healthy appearing and comfortable; No confusion Orientation/consciousness: oriented to person, patient oriented x3 and No confusion Other: Appears tired HENMT: Mouth: Yes moist mucous membranes Eyes: EOM: EOMs intact bilaterally Neck: Neck: no JVD Thyroid: thyroid normal Resp: Effort & Inspection: normal respiratory effort Auscultation: clear to auscultation bilaterally and crackles Cardio: Rate: regular rate Rhythm: regular rhythm Heart sounds: no murmurs GI: Inspection: normal to inspection Skin: General skin exam: no rashes or lesions noted Neuro: General: oriented to person, patient oriented x3 and No confusion Extrem: Right lower extremity: no edema Left
[2021-09-15] MEDS: METOPROLOL TARTRATE 25 MG TABLET PO (09:18)
[2021-09-15] MEDS: LOSARTAN POTASSIUM 50 MG TABLET PO (09:18)
[2021-09-15] MEDS: AMIODARONE HCL 200 MG TABLET 400 MG PO (09:18)
[2021-09-15] MEDS: APIXABAN 5 MG TABLET PO (09:18)
--- NOTE | 2021-09-15 10:51 | PM.PNGS ---
Progress Note: A&P Assessment and Plan (1) Gallstone pancreatitis: Code(s): K85.10 - Biliary acute pancreatitis without necrosis or infection Status: Acute Assessment and Plan: Tolerating a low fat diet and still not having any abdominal pain. S/p successful BURT-guided cardioversion and on Eliquis. Cardiology recommends to avoid holding his anticoagulation for 30 days post-cardioversion, but he will eventually need a cholecystectomy as soon as Cardiology feels it is safe to proceed. Okay from our standpoint to discharge the patient when okay with all other services. Follow-up in [address] Ronquillo. Continue a low fat diet. He has had 7 days of IV Zosyn, okay to stop antibiotics on discharge. Discussed with the patient's reasons to call or return to the ER sooner than f/u. (2) Atrial fibrillation with RVR: Code(s): I48.91 - Unspecified atrial fibrillation Status: Acute (3) Cholelithiasis: Code(s): K80.20 - Calculus of gallbladder without cholecystitis without obstruction Status: Acute (4) Elevated liver enzymes: Code(s): R74.8 - Abnormal levels of other serum enzymes Status: Acute Assessment and Plan: Continues to trend down. Total bilirubin 2.8. Hospitalist planning to repeat CMP within a week after discharge. Plan I have discussed the patient's case and plan of care with Dr. Ronquillo. Subjective Subjective Date/Time Seen: 09/15/21 10:51 Patient reports: no new complaints, tolerating a regular diet (low fat) and afebrile Interval history: Patient seen and examined. He reports feeling well today. Still not having any abdominal pain. He has been NPO this morning for the stress test, but tolerated a low fat diet yesterday. No nausea or vomiting. No other complaints at this time. Review of Systems Review of Systems: All systems reviewed & are unremarkable except as noted in HPI and below Exam Const: General: alert; No acute distress Orientation/consciousness: patient oriented x3 GI: Inspection: non-distended GI Palp: Yes Soft to palpation, Yes Tenderness to palpation present (GI) (very mild RUQ TTP, much improved) and No Guarding due to palpation present (GI) Auscultation: normal bowel sounds Psych: Insight: Good insight present (Psych) Judgement: Good judgement present (Psych) Objective Data Vital Signs Vital Signs: Vital Signs - 24 hr 09/14/21 10:55 09/14/21 11:00 09/14/21 11:05 Temperature Pulse Rate 152 H 147 H 67 Respiratory Rate 36 H 32 H 25 H Blood Pressure 121/95 H 122/105 H 117/69 Pulse Oximetry 97 99 99 Oxygen Delivery Nasal Cannula Nasal Cannula Nasal Cannula Oxygen Flow Rate 2 2 2 09/14/21 11:10 09/14/21 11:15 09/14/21 11:30 Temperature Pulse Rate 67 72 69 Respiratory Rate 25 H 27 H 28 H Blood Pressure 110/66 108/69 109/68 Pulse Oximetry 99 99 100 Oxygen Delivery Nasal Cannula Nasal Cannula Room Air Oxygen Flow Rate 2 2 09/14/21 11:45 09/14/21 12:01 09/14/21 12:00 Temperature 97.5 F L Pulse Rate 68 69 80 Respiratory Rate 27 H 26 H 22 H Blood Pressure 119/76 114/76 130/67 Pulse Oximetry 97 98 100 Oxygen Delivery Room Air Room Air Oxygen Flow Rate 09/14/21 12:00 09/14/21 16:00 09/14/21 16:00 Temperature 98.3 F Pulse Rate 82 Respiratory Rate 22 H Blood Pressure 153/83 H Pulse Oximetry 97 Oxygen Delivery Room Air Room Air Oxygen Flow Rate 09/14/21 14:00 09/14/21 17:34 09/14/21 16:00 Temperature Pulse Rate 70 84 73 Respiratory Rate Blood Pressure Pulse Oximetry Oxygen Delivery Oxygen Flow Rate 09/14/21 18:00 09/14/21 20:25 09/14/21 20:59 Temperature Pulse Rate 85 93 92 Respiratory Rate Blood Pressure Pulse Oximetry 95 Oxygen Delivery Room Air Oxygen Flow Rate 09/14/21 20:00 09/14/21 20:00 09/14/21 20:00 Temperature 97.4 F L Pulse Rate 84 95 95 Respiratory Rate 26 H 26 H Blood Pressure 164/83 H Pulse Oximetry 98 9
--- NOTE | 2021-09-15 14:01 | P.DS_ITS ---
DS: Admitting Diagnosis Discharge Date 09/15/21 Admitting Diagnosis gallstone pancreatitis DS: Discharge Diagnosis Discharge Diagnosis (1) Paroxysmal atrial fibrillation: Code(s): I48.0 - Paroxysmal atrial fibrillation Status: Acute Assessment and Plan: Rate was controlled on admission * Eliquis was on hold for lap syeda * Went into afib rvr which was refractory to metoprolol, cardizem, and amio drip * Taken to OR yesterday for successful BURT guided cardioversion * Amio changed to PO * Eliquis restarted * Lexiscan today reviewed * Rate now stable in the 80s * Stable for discharge per cardiology. Will remain on Eliquis for at least 30 days prior to re evaluation for surgical intervention as outlined below. (2) Cholelithiasis: Code(s): K80.20 - Calculus of gallbladder without cholecystitis without obstruction Status: Acute Assessment and Plan: Cholelithiasis with possible cholecystitis on initial CT * General surgery consultation * MRCP no evidence of cholelithiasis. * Planned for laparoscopic cholecystectomy but patient went into afib rvr. Now on hold until stable from cardiac standpoint. * Eliquis on hold perioperatively but resumed by cardiology yesterday s/p BURT cardioversion * Completed IV Zosyn x1 week. WBC improved, 13.8 today was up to 22.9. No further abx indicated per general surgery. (3) Acute pancreatitis: Code(s): K85.90 - Acute pancreatitis without necrosis or infection, unspecified Status: Acute Assessment and Plan: Acute pancreatitis secondary to gallstones * Lipase 17,000 on presentation. Now normal * Antiemetics and analgesics given as needed, pain and nausea resolved at this time * General surgery and Gastroenterology consultation * MRCP reviewed. No stones or strictures of common bile duct. (4) Transaminitis: Code(s): R74.01 - Elevation of levels of liver transaminase levels Status: Acute Assessment and Plan: Secondary to above * LFTs with downward trend. AST normalized. * Total bili remains elevated but improving. Unconjugated hyperbilirubinemia. * Pt stable for discharge per surgery, will have patient get repeat CMP on Sunday. (5) Hyperglycemia: Code(s): R73.9 - Hyperglycemia, unspecified Status: Acute Assessment and Plan: Likely secondary to acute illness * A1c is 5.7 * Resolved (6) Elevated blood pressure reading: Code(s): R03.0 - Elevated blood-pressure reading, without diagnosis of hypertension Status: Acute Assessment and Plan: Blood pressure has been labile during admission. * Patient has no history of hypertension * Started on Losartan and Metoprolol per cardiology * Will continue these on discharge and f/u w/ cardiology DS: Summary Hospital Course Reason for hospitalization: 75-year-old male with a history of paroxysmal atrial fibrillation on chronic anticoagulation and kidney stones who is seen in follow-up for gallstone pancreatitis.? Developed afib rvr prior to cholecystectomy. Please see HPI for further details. Hospital Course: Please see above for details of hospital course. Status at Discharge Cognitive/behavioral status at discharge: stable Functional status at discharge: independent ambulation Overall status at discharge: patient is progressing back to baseline Time Spent with Patient Time attestation: Total time spent providing and/or coordinating discharge services
--- NOTE | 2021-09-15 14:01 | PM.DS ---
DS: Admitting Diagnosis Discharge Date 09/15/21 Admitting Diagnosis gallstone pancreatitis DS: Discharge Diagnosis Discharge Diagnosis (1) Paroxysmal atrial fibrillation: Code(s): I48.0 - Paroxysmal atrial fibrillation Status: Acute Assessment and Plan: Rate was controlled on admission Eliquis was on hold for lap syeda Went into afib rvr which was refractory to metoprolol, cardizem, and amio drip Taken to OR yesterday for successful BURT guided cardioversion Amio changed to PO Eliquis restarted Lexiscan today reviewed Rate now stable in the 80s Stable for discharge per cardiology. Will remain on Eliquis for at least 30 days prior to re evaluation for surgical intervention as outlined below. (2) Cholelithiasis: Code(s): K80.20 - Calculus of gallbladder without cholecystitis without obstruction Status: Acute Assessment and Plan: Cholelithiasis with possible cholecystitis on initial CT General surgery consultation MRCP no evidence of cholelithiasis. Planned for laparoscopic cholecystectomy but patient went into afib rvr. Now on hold until stable from cardiac standpoint. Eliquis on hold perioperatively but resumed by cardiology yesterday s/p BURT cardioversion Completed IV Zosyn x1 week. WBC improved, 13.8 today was up to 22.9. No further abx indicated per general surgery. (3) Acute pancreatitis: Code(s): K85.90 - Acute pancreatitis without necrosis or infection, unspecified Status: Acute Assessment and Plan: Acute pancreatitis secondary to gallstones Lipase 17,000 on presentation. Now normal Antiemetics and analgesics given as needed, pain and nausea resolved at this time General surgery and Gastroenterology consultation MRCP reviewed. No stones or strictures of common bile duct. (4) Transaminitis: Code(s): R74.01 - Elevation of levels of liver transaminase levels Status: Acute Assessment and Plan: Secondary to above LFTs with downward trend. AST normalized. Total bili remains elevated but improving. Unconjugated hyperbilirubinemia. Pt stable for discharge per surgery, will have patient get repeat CMP on Sunday. (5) Hyperglycemia: Code(s): R73.9 - Hyperglycemia, unspecified Status: Acute Assessment and Plan: Likely secondary to acute illness A1c is 5.7 Resolved (6) Elevated blood pressure reading: Code(s): R03.0 - Elevated blood-pressure reading, without diagnosis of hypertension Status: Acute Assessment and Plan: Blood pressure has been labile during admission. Patient has no history of hypertension Started on Losartan and Metoprolol per cardiology Will continue these on discharge and f/u w/ cardiology DS: Summary Hospital Course Reason for hospitalization: 75-year-old male with a history of paroxysmal atrial fibrillation on chronic anticoagulation and kidney stones who is seen in follow-up for gallstone pancreatitis.? Developed afib rvr prior to cholecystectomy. Please see HPI for further details. Hospital Course: Please see above for details of hospital course. Status at Discharge Cognitive/behavioral status at discharge: stable Functional status at discharge: independent ambulation Overall status at discharge: patient is progressing back to baseline Time Spent with Patient Time attestation: Total time spent providing and/or coordinating discharge services: 45 Time spent: Greater than 30 minutes Exam Narrative: General: Well-nourished, well-appearing 75-year-old male, supine in bed, comfortable, NARD Neuro: awake, alert and oriented x4, speech clear, no focal neuro deficits noted HEENMT: normocephalic, atraumatic, EOMI, bilateral scleral icterus Respiratory: clear to auscultation bilaterally, nonlabored breathing Cardio: regular rate, regular rhythm with S1-S2 Abdomen: nondistended, normoactive bowel sounds, soft, non te
--- NOTE | 2021-09-15 14:35 | P.PNIM_ITS ---
Progress Note: A&P Assessment and Plan (1) Paroxysmal atrial fibrillation: Code(s): I48.0 - Paroxysmal atrial fibrillation Status: Acute Assessment and Plan: Rate was controlled on admission * Eliquis was on hold for lap syeda * Went into afib rvr which was refractory to metoprolol, cardizem, and amio drip * Taken to OR yesterday for successful BURT guided cardioversion * Amio changed to PO * Eliquis restarted * Lexiscan today reviewed * Rate now stable in the 80s * Being fitted for life vest * Stable for discharge per cardiology. Will remain on Eliquis for at least 30 days prior to re evaluation for surgical intervention as outlined below. * Will dispo once life vest is fitted and approved by insurance. (2) Cholelithiasis: Code(s): K80.20 - Calculus of gallbladder without cholecystitis without obstruction Status: Acute Assessment and Plan: Cholelithiasis with possible cholecystitis on initial CT * General surgery consultation * MRCP no evidence of cholelithiasis. * Planned for laparoscopic cholecystectomy but patient went into afib rvr. Now on hold until stable from cardiac standpoint. * Eliquis on hold perioperatively but resumed by cardiology yesterday s/p BURT cardioversion * Completed IV Zosyn x1 week. WBC improved, 13.8 today was up to 22.9. No further abx indicated per general surgery. (3) Acute pancreatitis: Code(s): K85.90 - Acute pancreatitis without necrosis or infection, unspecified Status: Acute Assessment and Plan: Acute pancreatitis secondary to gallstones * Lipase 17,000 on presentation. Now normal * Antiemetics and analgesics given as needed, pain and nausea resolved at this time * General surgery and Gastroenterology consultation * MRCP reviewed. No stones or strictures of common bile duct. (4) Transaminitis: Code(s): R74.01 - Elevation of levels of liver transaminase levels Status: Acute Assessment and Plan: Secondary to above * LFTs with downward trend. AST normalized. * Total bili remains elevated but improving. Unconjugated hyperbilirubinemia. * Pt stable for discharge per surgery, will have patient get repeat CMP on Sunday. (5) Hyperglycemia: Code(s): R73.9 - Hyperglycemia, unspecified Status: Acute Assessment and Plan: Likely secondary to acute illness * A1c is 5.7 * Resolved (6) Elevated blood pressure reading: Code(s): R03.0 - Elevated blood-pressure reading, without diagnosis of hypertension Status: Acute Assessment and Plan: Blood pressure has been labile during admission. * Patient has no history of hypertension * Started on Losartan and Metoprolol per cardiology * Will continue these on discharge and f/u w/ cardiology Subjective Date/time seen: 09/15/21 14:35 Interval history: 75-year-old male with a history of paroxysmal atrial fibrillation on chronic anticoagulation and kidney stones who is seen in follow-up for gallstone pancreatitis.? Developed afib rvr prior to cholecystectomy. Feeling better. Waiting on life vest prior to discharge. No cp/sob. No N/V/abd pain. Having some mild diarrhea since yesterday. Review of Systems Review of Systems: All systems reviewed & are unremarkable except as noted in HPI and below Exam Narrative: General: Well-nourished, well-appearing 75-year-old male, supine in bed, comfortable, NARD Neuro: awake, alert and oriente
--- NOTE | 2021-09-15 14:35 | PM.IMPN ---
Progress Note: A&P Assessment and Plan (1) Paroxysmal atrial fibrillation: Code(s): I48.0 - Paroxysmal atrial fibrillation Status: Acute Assessment and Plan: Rate was controlled on admission Eliquis was on hold for lap syeda Went into afib rvr which was refractory to metoprolol, cardizem, and amio drip Taken to OR yesterday for successful BURT guided cardioversion Amio changed to PO Eliquis restarted Lexiscan today reviewed Rate now stable in the 80s Being fitted for life vest Stable for discharge per cardiology. Will remain on Eliquis for at least 30 days prior to re evaluation for surgical intervention as outlined below. Will dispo once life vest is fitted and approved by insurance. (2) Cholelithiasis: Code(s): K80.20 - Calculus of gallbladder without cholecystitis without obstruction Status: Acute Assessment and Plan: Cholelithiasis with possible cholecystitis on initial CT General surgery consultation MRCP no evidence of cholelithiasis. Planned for laparoscopic cholecystectomy but patient went into afib rvr. Now on hold until stable from cardiac standpoint. Eliquis on hold perioperatively but resumed by cardiology yesterday s/p BURT cardioversion Completed IV Zosyn x1 week. WBC improved, 13.8 today was up to 22.9. No further abx indicated per general surgery. (3) Acute pancreatitis: Code(s): K85.90 - Acute pancreatitis without necrosis or infection, unspecified Status: Acute Assessment and Plan: Acute pancreatitis secondary to gallstones Lipase 17,000 on presentation. Now normal Antiemetics and analgesics given as needed, pain and nausea resolved at this time General surgery and Gastroenterology consultation MRCP reviewed. No stones or strictures of common bile duct. (4) Transaminitis: Code(s): R74.01 - Elevation of levels of liver transaminase levels Status: Acute Assessment and Plan: Secondary to above LFTs with downward trend. AST normalized. Total bili remains elevated but improving. Unconjugated hyperbilirubinemia. Pt stable for discharge per surgery, will have patient get repeat CMP on Sunday. (5) Hyperglycemia: Code(s): R73.9 - Hyperglycemia, unspecified Status: Acute Assessment and Plan: Likely secondary to acute illness A1c is 5.7 Resolved (6) Elevated blood pressure reading: Code(s): R03.0 - Elevated blood-pressure reading, without diagnosis of hypertension Status: Acute Assessment and Plan: Blood pressure has been labile during admission. Patient has no history of hypertension Started on Losartan and Metoprolol per cardiology Will continue these on discharge and f/u w/ cardiology Subjective Date/time seen: 09/15/21 14:35 Interval history: 75-year-old male with a history of paroxysmal atrial fibrillation on chronic anticoagulation and kidney stones who is seen in follow-up for gallstone pancreatitis.? Developed afib rvr prior to cholecystectomy. Feeling better. Waiting on life vest prior to discharge. No cp/sob. No N/V/abd pain. Having some mild diarrhea since yesterday. Review of Systems Review of Systems: All systems reviewed & are unremarkable except as noted in HPI and below Exam Narrative: General: Well-nourished, well-appearing 75-year-old male, supine in bed, comfortable, NARD Neuro: awake, alert and oriented x4, speech clear, no focal neuro deficits noted HEENMT: normocephalic, atraumatic, EOMI, bilateral scleral icterus Respiratory: clear to auscultation bilaterally, nonlabored breathing Cardio: regular rate, regular rhythm with S1-S2 Abdomen: nondistended, normoactive bowel sounds, soft, non tender Extremities: no edema, erythema, or tenderness to palpation Skin: mild jaundice, no rashes or lesions, warm and dry Psych: appropriate mood and affect, judgment and insight intact Objective Data
--- NOTE | 2021-09-15 15:52 | WPDGIPROGNO ---
Progress Note: A&P Assessment and Plan (1) Gallstone pancreatitis: Code(s): K85.10 - Biliary acute pancreatitis without necrosis or infection Status: Acute Assessment and Plan: clinically doing better and lft's trending down defer surgery for few more weeks until clear by cardiology, he will follow-up as outpatient he already completed treatment for cholecystitis no objections to discharge (2) Elevated liver enzymes: Code(s): R74.8 - Abnormal levels of other serum enzymes Status: Acute Assessment and Plan: bilirubin trending down and was from pancreatitis hepatitis panel negative no choledocholithiasis cholecystectomy as outpatient in few more weeks (3) Abnormal computed tomography of abdomen and pelvis: Code(s): R93.5 - Abnormal findings on diagnostic imaging of other abdominal regions, including retroperitoneum Status: Acute Assessment and Plan: MRCP reviewed (4) Paroxysmal atrial fibrillation: Code(s): I48.0 - Paroxysmal atrial fibrillation Status: Acute Assessment and Plan: treated by cardiology (5) Chronic anticoagulation: 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): 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 Status: Acute (6) Upper abdominal pain: Code(s): R10.10 - Upper abdominal pain, unspecified Status: Acute Assessment and Plan: resolved Subjective Date/time seen: 09/15/21 15:52 Interval history: no more pain, doing better Review of Systems Review of Systems: All systems reviewed & are unremarkable except as noted in HPI and below Exam Const: General: comfortable and no acute distress HENMT: General nose exam: Normal nares present Eyes: General: appearance normal, both eyes and all related structures Neck: Neck: supple Resp: Auscultation: clear to auscultation bilaterally Cardio: Rhythm: abnormal rhythm irregularly irregular GI: GI Palp: Yes Soft to palpation, No Tenderness to palpation present (GI) and No Guarding due to palpation present (GI) Skin: General skin exam: normal color Neuro: Speech: normal speech Extrem: General: normal to inspection Objective Data Vital Signs Vital Signs: Vital Signs - 24 hr 09/14/21 16:00 09/14/21 16:00 09/14/21 17:34 Temperature 98.3 F Pulse Rate 82 84 Respiratory Rate 22 H Blood Pressure 153/83 H Pulse Oximetry 97 Oxygen Delivery Room Air 09/14/21 16:00 09/14/21 18:00 09/14/21 20:25 Temperature Pulse Rate 73 85 93 Respiratory Rate Blood Pressure Pulse Oximetry 95 Oxygen Delivery Room Air 09/14/21 20:59 09/14/21 20:00 09/14/21 20:00 Temperature 97.4 F L Pulse Rate 92 84 95 Respiratory Rate 26 H Blood Pressure 164/83 H Pulse Oximetry 98 Oxygen Delivery 09/14/21 20:00 09/14/21 22:00 09/14/21 23:38 Temperature 98.1 F Pulse Rate 95 84 77 Respiratory Rate 26 H 24 H Blood Pressure 153/75 H Pulse Oximetry 95 97 Oxygen Delivery Room Air 09/15/21 00:00 09/15/21 00:00 09/15/21 02:00 Temperature Pulse Rate 84 84 76 Respiratory Rate 24 H Blood Pressure Pulse Oximetry 97 Oxygen Delivery Room Air 09/15/21 04:00 09/15/21 04:00 09/15/21 04:00 Temperature 97.8 F Pulse Rate 84 84 78 Respiratory Rate 24 H 28 H Blood Pressure 146/54 H Pulse Oximetry 97 96 Oxygen Delivery Room Air 09/15/21 06:00 09/15/21 07:50 09/15/21 09:18 Temperature 98.6 F Pulse Rate 82 83 84 Respiratory Rate 18 Blood Pressure 161/80 H Pulse Oximetry 97 Oxygen Delivery 09/15/21 09:18 09/15/21 08:00 09/15/21 08:00 Temperature Pulse Rate 84 81 Respiratory Rate Blood Pressure Pulse Oximetry Oxygen Delivery Room Air 09/15/21 10:00 09/15/21 11:55 09/15/21 12:00 Temperature 98.5 F Pulse Rate 87 78 Respiratory Rate 20 Blood Pressure 165/79 H Pulse Oximetry 96 Oxygen Delivery Room Air 09/15/21 14:54 Temperature Pulse Rate 85 Respiratory R
[2021-09-18 14:15] LABS: Haptoglobin 18 mg/dL (43-212)
== END 2021-09-15 17:00 | disposition home or self-care (01) | DRG 438 ==
LOC: ANHED 17:43 → ANH2MED 17:54 → ANHIMU 09-13 16:41
PROVIDERS: Internal Medicine Cardiovascular Disease; Physician Assistant; Surgery; Admitting Provider Student in an Organized Health Care Education/Training Program; Emergency Provider Emergency Medicine; PCP Emergency Medicine; Visit Provider Internal Medicine
PROC: 0FT44ZZ Resection of Gallbladder, Percutaneous Endoscopic Approach (ICD-10-PCS; CPT 47562; principal; 2021-09-13 13:00)
PROC: 5A2204Z Restoration of Cardiac Rhythm, Single (ICD-10-PCS; CPT 93312; principal; 2021-09-14 10:30)
PROC: 5A2204Z Restoration of Cardiac Rhythm, Single (ICD-10-PCS; 2021-09-14 10:30)
DX: K85.10 Biliary acute pancreatitis without necrosis or infection (principal); I50.31 Acute diastolic (congestive) heart failure; I47.2 Ventricular tachycardia; K80.20 Calculus of gallbladder without cholecystitis without obstruction; R74.01 Elevation of levels of liver transaminase levels; E86.0 Dehydration; R73.9 Hyperglycemia, unspecified; I48.0 Paroxysmal atrial fibrillation; Z82.49 Family history of ischemic heart disease and other diseases of the circulatory system; Z87.891 Personal history of nicotine dependence; E87.6 Hypokalemia; Z80.8 Family history of malignant neoplasm of other organs or systems; Z79.01 Long term (current) use of anticoagulants; Z79.899 Other long term (current) drug therapy
CPT/HCPCS: 36415; 71045; 74177; 74183; 76376; 78452; 80048; 80053; 80074; 80076; 80307; 81001; 82728; 83010; 83036; 83540; 83550; 83615; 83690; 83735; 83880; 84134; 84439; 84443; 84466; 84480; 84484; 85025; 85027; 85046; 85610; 85730; 86850; 86900; 86901; 92960; 93005; 93017; 93306; 93312; 93320; 93325; 96361; 96374; 96375; 99285; A9270; A9502; A9577; J0282; J0360; J1650; J1885; J1940; J2250; J2270; J2310; J2405; J2543; J2785; J3010; J3430; J7030; J7120; Q9967

== ENCOUNTER 2021-10-04 13:34 | Outpatient (CLI) | payer OTHER, SELFPAY ==
[2021-10-04 14:02] LABS: Alanine Aminotransferase 28 U/L (6-50); Albumin Level 3.7 g/dL (3.5-5.1); Alkaline Phosphatase 123 U/L (38-126); Anion Gap 4 mmol/L (8-16); Aspartate Amino Transferase 31 U/L (17-59); Bilirubin,Total 0.6 mg/dL (0.2-1.3); Blood Urea Nitrogen 23 mg/dL (9-20); Calcium 8.6 mg/dL (8.4-10.2); Carbon Dioxide 28 mmol/L (22-30); Chloride 107 mmol/L (98-107); Estimated Glomerular Filt Rate > 60; Glucose 117 mg/dL (65-110); Potassium 4.3 mmol/L (3.4-5.0); Sodium 139 mmol/L (137-145)
== END 2021-10-04 13:35 | disposition home or self-care (01) ==
PROVIDERS: PCP Emergency Medicine; Visit Provider Emergency Medicine
DX: Z13.220 Encounter for screening for lipoid disorders (principal)
CPT/HCPCS: 36415; 80053

== ENCOUNTER 2021-11-03 14:05 | Outpatient (CLI) | payer OTHER, SELFPAY ==
[2021-11-03 14:42] LABS: Hemoglobin A1C 5.7 % (<5.7)
== END 2021-11-03 14:06 | disposition home or self-care (01) ==
LOC: ANHLAB 14:07
PROVIDERS: PCP Emergency Medicine; Visit Provider Emergency Medicine
DX: R73.09 Other abnormal glucose (principal)
CPT/HCPCS: 36415; 83036

== ENCOUNTER 2021-12-02 12:33 | Outpatient (CLI) | payer OTHER, SELFPAY ==
[2021-12-02 13:11] LABS: Alanine Aminotransferase 19 U/L (6-50); Albumin Level 4.4 g/dL (3.5-5.1); Alkaline Phosphatase 71 U/L (38-126); Amylase 75 U/L (30-110); Aspartate Amino Transferase 26 U/L (17-59); Lipase 95 U/L (23-300)
== END 2021-12-02 12:34 | disposition home or self-care (01) ==
LOC: ANHSURGERY 12:38
PROVIDERS: PCP Emergency Medicine; Visit Provider Surgery
DX: Z01.812 Encounter for preprocedural laboratory examination (principal); K80.20 Calculus of gallbladder without cholecystitis without obstruction
CPT/HCPCS: 36415; 80076; 82150; 83690; 86850; 86900; 86901

== ENCOUNTER 2021-12-07 00:23 | Day surgery (SDC) | payer OTHER, SELFPAY ==
[2021-12-01 08:20] VITALS: BMI 25.1
--- NOTE | 2021-12-01 08:32 | PC.NURSE ---
Addendum entered by Jeremiah Loza RN 12/01/21 08:40: Shower with Hebiclense (chlorhexadine gluconate) morning of surgery. Original Note: Report to the Outpatient Waiting Room, entrance under the green pavilion located off [facility], at time _1100_ on date _[id number]_. OR Time: _1pm_. Time changes happen often and if your time is changed the preop area will call you the afternoon before. - You and your visitor will be asked to self-screen and do not enter if you have any COVID symptoms. - Only one visitor and NO children visitors are allowed at this time. - The patient visitor is requested to leave or wait in car when not with patient due to restrictions. - A mask is required within the hospital. Patients may have clear liquids (water, carbonated beverages, clear teas, apple juice) until 3 hours prior to surgery with a maximum of 20 ounces. - No food from midnight until time of surgery Take the following medications with a SIP of water the morning of surgery: __Amiodarone and Metoprolol Medications to discontinue per physician Eliquis Date to take last dose___Follow surgeon's instructions Please no make-up, nail irish, hairspray, perfume, deodorant, or body powder the day of surgery. No jewelry (including any body piercings) or valuables the day of surgery, leave them at home. Please take a shower or bath the night before, or the morning of, surgery with an antibacterial soap. Wear comfortable, loose fitting clothing. - Jewelry must be removed prior to entering the operating room. Rings and piercings that are not removed may be cut off. - The hospital will not accept responsibility for valuables. - Please leave all valuables, including medications, at home the day of surgery. If you are going home after surgery, a licensed [facility]pr ambulance driver must drive you home. - NO public transportation without another adult. - We recommend that an adult stay with you for 24 hours following discharge. - We also recommend that you do not drive, make important decision, drink alcoholic beverages, or take any drugs that were not prescribed by your health care provider for at least 24 hours after your discharge time. Follow any additional instructions given to you from your surgeon. If you or anyone in your household have experienced Covid symptoms in the past week, please notify your surgeon or the nurse liaison at the phone number below for possible testing. Telephone instructions given to _Patient__and asked if any additional questions and then verbalized understanding. Patient advised to call surgeon office or pre surgery nurse liaison [phone] if any additional questions.
[2021-12-07] VITALS (8 sets, daily range): BP systolic 103–148; BP diastolic 70–96; PULSE 77–98; RESP 12–20; TEMP 36.6–37.1; O2SAT 98–100
--- NOTE | ~2021-12-07 | XR_ITS ---
XR cholangiogram surg 1st inj DATE: 12/07/2021 11:14 INDICATION: Microscopic cholecystectomy TECHNIQUE: 26.0 seconds fluoroscopy time 9.43 mGy 3 contrast material injection attempts were made. COMPARISON: None FINDINGS: Bilateral 3 injection attempts there is extravasation of the contrast material into the per itoneal space and no filling of the bile ducts. IMPRESSION: Unsuccessful operative room cholangiogram, extravasation of contrast material into the pe ritoneal space Reviewed, dictated and finalized at Location [facility]. Reviewed, dictated and finalized at location B. IMPRESSION: Unsuccessful operative room cholangiogram, extravasation of contras t material into the peritoneal space
--- NOTE | 2021-12-07 08:53 | P.PNAN_ITS ---
Anes - Initial Pre Proc Eval Procedure: Operation Date: 12/07/21 10:30 Proposed Procedures p Laparoscopic Cholecystectomy with Intraoperative Cholangiogram, Possible Open - Lorenzo Ronquillo DO Date/Time: 12/07/21 08:53 Surgeon: Lorenzo Ronquillo DO Pre Op Diagnosis: cholelithiasis,gallstone,pancreatitis Patient Data Age: 76 Gender: M Height: 1.8 m Weight: 81.8 kg Allergies Allergy/AdvReac Type Severity Reaction Status Date / Time No Known Allergies Allergy Verified 12/01/21 08:18 Home Medications Medication Instructions Recorded Confirmed Type amiodarone 200 mg tablet (Pacerone) 400 mg PO BID 30 days #120 tabs 09/15/21 12/01/21 Rx apixaban 5 mg tablet (Eliquis) 5 mg PO Q12HR 30 days #60 tabs 09/15/21 12/01/21 Rx losartan 50 mg tablet (Cozaar) 50 mg PO DAILY 30 days #30 tabs 09/15/21 12/01/21 Rx metoprolol tartrate 25 mg tablet 25 mg PO Q12HR 30 days #60 tabs 11/14/21 12/01/21 Rx Patient hx anesthesia problems: none Family hx anesthesia problems: none Results Review: All pre-operative results and documents have been reviewed as part of the pre- operative evaluation. [facility] Past Medical History Medical History Chronic anticoagulation Elevated liver enzymes Gallstone pancreatitis Kidney stones Leukocytosis Paroxysmal atrial fibrillation Upper abdominal pain Surgical History Surgical History History of appendectomy History of colonoscopy with polypectomy History of vasectomy Family History Family History Mother Family history of malignant neoplasm of uterus, Onset Age: 52 Patient's mother is Father Patient's father is , Onset Age: 84 Acute myocardial infarction, Onset Age: 84 Social History Social History Social History: Surrogate decision maker: Mikayla Lema, sister. Code status: Full code. Smoking packs per day: 1 Smoking cigarettes per day: 20.0 Years smoked: 25 Smoking pack-years: 25.00 Smoking status: Former smoker Tobacco type: cigarettes Smoking end date: 12/02/07 Alcohol intake: current Alcohol use details: Rare alcohol use in moderation. Substance use: never Living arrangements: alone Spiritual care concerns: No Anes - Eval Final PreProcedure Day of Procedure 12/07/21 08:53 Patient weight: normal Heart: irregular rhythm Lungs: clear to auscultation Airway: Mallampati scale class II Neurological: alert and oriented Last oral intake: >/= 8 hours ASA classification: III Emergent: no Anesthetic plan: proceed Anesthesia type and monitoring: general ETT and standard monitoring Results Review: All pre-operative results and documents have been reviewed as part of the pre- operative evaluation. Informed Consent: The patient's anesthetic plan and its attendant risks and benefits were discussed with the patient/family/POA. Questions were solicited and answers provided to the satisfaction of the patient/family/POA.
--- NOTE | 2021-12-07 09:01 | PM.IMHP ---
H&P: HPI History of Present Illness Date/Time: 12/07/21 09:01 Chief Complaint: Gallstone pancreatitis Narrative: This is a 76-year-old man who presents for laparoscopic cholecystectomy. He denies any changes since last seen in the office. He has a prior history of acute pancreatitis that was found to be secondary to gallstones. Surgery was delayed at the time due to him having atrial fibrillation with RVR. He has now been adequately treated by Cardiology and presents for surgery. Review of Systems Review of Systems: All systems reviewed & are unremarkable except as noted in HPI and below Constitutional: Constitutional: Denies chills, Denies fever(s), Denies headache(s) and Denies weight loss Eyes: Eyes: Denies change in vision ENT: Denies dizziness, Denies headache(s), Denies neck mass and Denies throat swelling Cardiovascular: Cardiovascular: Denies chest pain, Denies lightheadedness and Denies dyspnea Respiratory: Respiratory: Denies cough, Denies dyspnea and Denies wheezing Gastrointestinal: Gastrointestinal: Denies abdominal pain, Denies change in bowel habits, Denies nausea and Denies vomiting Genitourinary: Genitourinary: Denies hematuria and Denies dysuria Musculoskeletal: Musculoskeletal: Reports as per HPI Integumentary/Breasts: Skin/Breast: Reports as per HPI Neurologic: Denies dizziness and Denies headache(s) Allergic/Immunologic: Allergic/Immunologic: Denies throat swelling and Denies wheezing PMFSH Past Medical History Medical History Chronic anticoagulation Elevated liver enzymes Gallstone pancreatitis Kidney stones Leukocytosis Paroxysmal atrial fibrillation Upper abdominal pain Surgical History Surgical History History of appendectomy History of colonoscopy with polypectomy History of vasectomy Family History Family History Mother Family history of malignant neoplasm of uterus, Onset Age: 52 Patient's mother is Father Patient's father is , Onset Age: 84 Acute myocardial infarction, Onset Age: 84 Social History Social History Social History: Surrogate decision maker: Mikaylamisty Lema, sister. Code status: Full code. Smoking packs per day: 1 Smoking cigarettes per day: 20.0 Years smoked: 25 Smoking pack-years: 25.00 Smoking status: Former smoker Tobacco type: cigarettes Smoking end date: 12/02/07 Alcohol intake: current Alcohol use details: Rare alcohol use in moderation. Substance use: never Living arrangements: alone Spiritual care concerns: No Meds Home Medications and Allergies Home Medications Medication Instructions Recorded Confirmed Type amiodarone 200 mg tablet (Pacerone) 400 mg PO BID 30 days #120 tabs 09/15/21 12/07/21 Rx apixaban 5 mg tablet (Eliquis) 5 mg PO Q12HR 30 days #60 tabs 09/15/21 12/07/21 Rx losartan 50 mg tablet (Cozaar) 50 mg PO DAILY 30 days #30 tabs 09/15/21 12/07/21 Rx metoprolol tartrate 25 mg tablet 25 mg PO Q12HR 30 days #60 tabs 11/14/21 12/07/21 Rx Allergies Allergy/AdvReac Type Severity Reaction Status Date / Time No Known Allergies Allergy Verified 12/07/21 08:54 Exam Const: General: no acute distress and alert Orientation/consciousness: patient oriented x3 HENMT: Head: normocephalic and atraumatic Ears: hearing grossly normal bilaterally General nose exam: Normal nares present Mouth: Yes Normal oral and palatal mucosa present Eyes: Periorbital: periorbital findings normal Sclera: sclerae normal EOM: EOMs intact bilaterally Neck: Neck: normal visual inspection, no lymphadenopathy and trachea midline Chest: Chest palpation & inspection: normal inspection of the chest Resp: Effort & Inspection: normal respiratory effort Auscu
--- NOTE | 2021-12-07 09:03 | WPDHPUPDATE1 ---
History and Physical Update Update Date/Time: 12/07/21 09:03 History and Physical has been reviewed, including an updated exam of the patient. There are NO changes in the patient's condition. Risks, benefits, and alternatives have been discussed and questions answered. Patient agrees to proceed with procedure.
[2021-12-07] MEDS: ACETAMINOPHEN 500 MG TABLET 1000 MG PO (09:14)
[2021-12-07] MEDS: LACTATED RINGERS 1,000 ML 30 ML IV CONT ×2 (09:15→10:59)
[2021-12-07] MEDS: KETOROLAC 15 MG/ML VIAL (*BKC) IV PUSH (09:20)
[2021-12-07] MEDS: ceFAZolin 2 GM/D5W 50 ML 2 GM/50 ML BAG IVPB (09:33)
[2021-12-07] MEDS: BUPIVACAINE HCL 0.5% PF 30 ML VIAL INFILTRATE (10:15)
--- NOTE | 2021-12-07 10:51 | W.PM.PROC2 ---
Procedure Note - Detailed Date of Procedure 12/07/21 Pre-op Diagnosis cholelithiasis,gallstone,pancreatitis Post-op Diagnosis Same Procedure Performed Laparoscopic Cholecystectomy with intraoperative cholangiogram Surgeon Lorenzo Ronquillo, DO Anesthesia General and Local (0.5% bupivacaine) Indications This is a 76-year-old man who presented with a prior episode of gallstone pancreatitis. He was hospitalized several months ago and surgery was planned at that time but he went into AFib with RVR and surgery had to be delayed. He is now cleared from cardiology standpoint and decision was made to proceed with laparoscopic cholecystectomy with intraoperative cholangiogram. Findings Laparoscopic cholecystectomy was performed. Intra operative cholangiogram was performed with Omnipaque contrast. The contrast was visualized entering into the cystic duct, but it was extravasating from the insertion site and not opacifying into the common duct. After multiple attempts to visualize the common bile duct, decision was made to stop cholangiogram. The images were sent to Radiology for interpretation, but I was not able to visualize the entire biliary tree. The gallbladder did have several stones within it and 1 large gallstone neck of the gallbladder. Gallbladder had some chronic wall thickening but no other abnormalities. The cystic duct appeared normal in size. The gallbladder was removed and sent to the lab for pathology Description of Procedure Procedure as well as risks, benefits, and alternatives were discussed with patient. Written consent was obtained and placed in chart prior to procedure. The patient was brought back to surgical suite. Patient was placed in supine position on operating table. Time-out was done to confirm patient and procedure. Patient was then intubated by the anesthesia department. Abdomen was prepped and draped in sterile fashion using chlorhexidine prep. 0.5% bupivacaine with epinephrine was infiltrated at each site of incision. A 5 millimeter incision was made near the umbilicus, and a 5 millimeter Optiview trocar was advanced through the abdominal layers under direct visualization. Once inside the abdominal cavity, carbon dioxide was insufflated to create a pneumoperitoneum. The camera was inserted and the abdomen was inspected. No immediate abnormalities were identified. The patient was placed in reverse Trendelenburg position and rotated slightly to the left. An 11 millimeter incision was made in the subxiphoid region, and an 11 millimeter trocar was inserted under direct visualization. Two 5 millimeter incisions were made in the right upper quadrant, and two 5 millimeter trocars were inserted under direct visualization. The gallbladder was identified and grasped at the fundus and retracted superiorly. It was then grasped at the infundibulum retracted laterally. Careful dissection around the neck of the gallbladder was performed using blunt dissection with a [place] grasper and hook electrocautery. The cystic duct was identified, and a window was created behind it. The cystic artery was also identified and a window was created behind it. The critical view of safety was identified, visualizing the cystic duct running directly into the neck of the gallbladder, and the cystic artery running directly into the wall of the gallbladder. A 5 millimeter clip operator helper was then used to place 2 clips proximally and 1 clip distally the cystic artery. It was then transected using endoscopic scissors. I then placed the Chavez clamp across the neck of the gallbladder and the cholangiocatheter was advanced into the distal neck of the gallbladder. The catheter flushed with saline with ease. The patient was then flattened out in bed and cholangiogram was obtained using Omnipaque contrast and fluoroscopy. The images were sent to Radiology for interpretation. The patient was then placed back in reverse Trendelenburg position and a 5 mm Endocli
[2021-12-07] MEDS: oxyCODONE HCL (*CRX) 5 MG TAB IR PO (12:23)
== END 2021-12-07 13:05 | disposition home or self-care (01) ==
PROVIDERS: PCP Emergency Medicine; Visit Provider Surgery
PROC: 0FT44ZZ Resection of Gallbladder, Percutaneous Endoscopic Approach (ICD-10-PCS; CPT 47562; principal; 2021-12-07 10:30)
DX: K80.10 Calculus of gallbladder with chronic cholecystitis without obstruction (principal); K85.10 Biliary acute pancreatitis without necrosis or infection; I48.0 Paroxysmal atrial fibrillation; Z79.01 Long term (current) use of anticoagulants; Z87.891 Personal history of nicotine dependence
CPT/HCPCS: 47563; 36415; 74300; 80076; 82150; 83690; 86850; 86900; 86901; 88304; A9270; J0690; J1100; J1170; J1885; J2370; J2405; J2704; J2710; J3010; J7030; J7120; Q9966

== ENCOUNTER 2022-04-04 12:46 | Outpatient (CLI) | payer OTHER, SELFPAY ==
--- NOTE | ~2022-04-04 | XR_ITS ---
EXAMINATION: XR hand RT 2V DATE: 04/04/2022 13:12 INDICATION: Right hand effusion. TECHNIQUE: 2 views of right hand were obtained. COMPARISON: None. FINDINGS: Bone alignment is normal. No fracture. There is mild osteoarthritis of first carpometacarpa l joint and first and second metacarpophalangeal joints. There is moderate osteoarthritis of third pr oximal interphalangeal joint and fourth distal interphalangeal joint. There is mild osteoarthritis of second, third, and fifth distal interphalangeal joints. IMPRESSION: 1. Polyarticular osteoarthritis. Reviewed, dictated and finalized at location A. [employer] AND TE[employer]
--- NOTE | ~2022-04-04 | XR_ITS ---
EXAMINATION: XR hand LT 2V DATE: 04/04/2022 13:13 INDICATION: Left hand effusion. TECHNIQUE: 2 views of left hand were obtained. COMPARISON: None. FINDINGS: Bone alignment is normal. No fracture. There is moderate osteoarthritis of triscaphe joint and mild osteoarthritis of first carpometacarpal joint. There is mild osteoarthritis of first and sec ond metacarpophalangeal joints and most of the interphalangeal joints. IMPRESSION: 1. Polyarticular osteoarthritis. 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
== END 2022-04-04 12:47 | disposition home or self-care (01) ==
PROVIDERS: PCP Emergency Medicine; Visit Provider Emergency Medicine
DX: M25.449 Effusion, unspecified hand (principal); M19.042 Primary osteoarthritis, left hand; M19.041 Primary osteoarthritis, right hand
CPT/HCPCS: 73120

== ENCOUNTER 2022-05-16 11:53 | Outpatient (CLI) | payer OTHER, SELFPAY ==
[2022-05-16 12:19] LABS: Alanine Aminotransferase 29 U/L (6-50); Albumin Level 4.4 g/dL (3.5-5.1); Alkaline Phosphatase 77 U/L (38-126); Anion Gap 6 mmol/L (8-16); Aspartate Amino Transferase 34 U/L (17-59); Blood Urea Nitrogen 27 mg/dL (9-20); Calcium 9.2 mg/dL (8.4-10.2); Carbon Dioxide 26 mmol/L (22-30); Chloride 107 mmol/L (98-107); Estimated Glomerular Filt Rate 54; Glucose 99 mg/dL (65-110); Potassium 4.9 mmol/L (3.4-5.0); Sodium 139 mmol/L (137-145)
[2022-05-16 12:49] LABS: Prostate Specific Antigen 3.6 ng/mL (< OR = 4.0); Thyroid Stimulating Hormone 0.174 uIU/mL (0.465-4.680)
== END 2022-05-16 11:54 | disposition home or self-care (01) ==
PROVIDERS: PCP Emergency Medicine; Visit Provider Emergency Medicine
DX: R53.83 Other fatigue (principal); Z12.5 Encounter for screening for malignant neoplasm of prostate; Z13.6 Encounter for screening for cardiovascular disorders
CPT/HCPCS: 36415; 80053; 84153; 84443; G0103

== ENCOUNTER 2022-11-23 15:08 | Outpatient (CLI) | payer OTHER, SELFPAY ==
[2022-11-23 17:54] LABS: Alanine Aminotransferase 22 U/L (6-50); Albumin Level 4.2 g/dL (3.5-5.1); Alkaline Phosphatase 60 U/L (38-126); Anion Gap 4 mmol/L (8-16); Aspartate Amino Transferase 31 U/L (17-59); Bilirubin,Total 0.7 mg/dL (0.2-1.3); Blood Urea Nitrogen 31 mg/dL (9-20); Calcium 9.1 mg/dL (8.4-10.2); Carbon Dioxide 28 mmol/L (22-30); Chloride 106 mmol/L (98-107); Estimated Glomerular Filt Rate 54; Glucose 88 mg/dL (65-110); Potassium 4.7 mmol/L (3.4-5.0); Sodium 138 mmol/L (137-145)
[2022-11-23 18:20] LABS: Thyroid Stimulating Hormone 0.083 uIU/mL (0.465-4.680)
[2022-11-26 23:37] LABS: Vitamin D 1,25 (OH)2 Total 44 pg/mL (18-72); Vitamin D2 1,25 (OH)2 <8 pg/mL; Vitamin D3 1,25 (OH)2 44 pg/mL
== END 2022-11-23 15:09 | disposition home or self-care (01) ==
LOC: ANHLAB 15:11
PROVIDERS: PCP Emergency Medicine; Visit Provider Emergency Medicine
DX: E78.5 Hyperlipidemia, unspecified (principal); E55.9 Vitamin D deficiency, unspecified; R79.89 Other specified abnormal findings of blood chemistry
CPT/HCPCS: 36415; 80053; 82652; 84443

== ENCOUNTER 2023-05-24 13:42 | Outpatient (CLI) | payer OTHER, SELFPAY ==
[2023-05-24 16:09] LABS: Free T4 Free Thyroxine 1.08 ng/mL (0.78-2.19); Vitamin D 25 Hydroxy 31.5 ng/mL
[2023-05-24 17:14] LABS: Alanine Aminotransferase 26 U/L (6-50); Albumin Level 4.1 g/dL (3.5-5.1); Alkaline Phosphatase 68 U/L (38-126); Anion Gap 6 mmol/L (8-16); Aspartate Amino Transferase 37 U/L (17-59); Bilirubin,Total 0.7 mg/dL (0.2-1.3); Blood Urea Nitrogen 26 mg/dL (9-20); Calcium 9.2 mg/dL (8.4-10.2); Carbon Dioxide 25 mmol/L (22-30); Chloride 106 mmol/L (98-107); Estimated Glomerular Filt Rate 59; Glucose 151 mg/dL (65-110); Potassium 4.4 mmol/L (3.4-5.0); Sodium 137 mmol/L (137-145)
[2023-05-24 17:43] LABS: Thyroid Stimulating Hormone 0.257 uIU/mL (0.465-4.680)
== END 2023-05-24 13:43 | disposition home or self-care (01) ==
LOC: ANHLAB 13:44
PROVIDERS: PCP Emergency Medicine; Visit Provider Emergency Medicine
DX: R79.89 Other specified abnormal findings of blood chemistry (principal); E55.9 Vitamin D deficiency, unspecified; R53.83 Other fatigue
CPT/HCPCS: 36415; 80053; 82306; 84439; 84443; 84481

== ENCOUNTER 2023-07-27 13:03 | Outpatient (CLI) | payer OTHER, SELFPAY ==
[2023-07-27 14:03] LABS: Thyroid Stimulating Hormone 0.172 uIU/mL (0.465-4.680)
== END 2023-07-27 13:04 | disposition home or self-care (01) ==
LOC: ANHLAB 13:05
PROVIDERS: PCP Emergency Medicine; Visit Provider Emergency Medicine
DX: E78.5 Hyperlipidemia, unspecified (principal)
CPT/HCPCS: 36415; 84443

== ENCOUNTER 2023-08-06 14:35 | Outpatient (CLI) | payer OTHER, SELFPAY ==
--- NOTE | ~2023-08-06 | US_ITS ---
EXAMINATION: US thyroid DATE: 08/06/2023 15:12 INDICATION: Thyroid disorder. Abnormal labs. TECHNIQUE: Multiple ultrasound images of the thyroid were obtained. COMPARISON: None. FINDINGS: The right thyroid lobe measures 5.4 x 2.6 x 2.2 cm. The left thyroid lobe measures 5.1 x 2.4 x 1.9 c m. 1.3 cm taller than wide solid hypoechoic nodule with smooth margins and with internal echogenic f oci in the right thyroid lobe (TI-RADS 5, highly suspicious , FNA if >=1.0 cm, annual followup is >0. 5 cm). 1.2 cm largely anechoic cystic nodule in the left thyroid lobe with internal echogenic foci wi th prominent, tail artifact consistent with inspissated colloid (TI-RADS 1, benign, no FNA recommende d). There are few scattered additional subcentimeter solid hypoechoic nodules in both the left and ri ght thyroid lobes. IMPRESSION: 1. Multinodular goiter. Recommend ultrasound-guided biopsy of the 1.3 cm TI RADS 5 right thyroid nodu le. Reviewed, dictated and finalized at location A. IMPRESSION: 1. Multinodular goiter. Recommend ultrasound-guided biopsy of the 1.3 cm TI RAD S 5 right thyroid nodule.
== END 2023-08-06 14:36 | disposition home or self-care (01) ==
LOC: ANHIMG 14:36
PROVIDERS: PCP Emergency Medicine; Visit Provider Emergency Medicine
DX: E04.2 Nontoxic multinodular goiter (principal)
CPT/HCPCS: 76536

== ENCOUNTER 2023-12-05 08:58 | Outpatient (CLI) | payer OTHER, SELFPAY ==
[2023-12-05 09:34] LABS: Alanine Aminotransferase 21 U/L (6-50); Albumin Level 4.3 g/dL (3.5-5.1); Alkaline Phosphatase 65 U/L (38-126); Anion Gap 7 mmol/L (4-12); Aspartate Amino Transferase 32 U/L (17-59); Bilirubin,Total 1.2 mg/dL (0.2-1.3); Blood Urea Nitrogen 22 mg/dL (9-20); Carbon Dioxide 25 mmol/L (22-30); Chloride 101 mmol/L (98-107); Cholesterol 174 mg/dL (0-200); Estimated Glomerular Filt Rate 54; Glucose 88 mg/dL (65-110); HDL Direct 50 mg/dL; Potassium 4.5 mmol/L (3.4-5.0); Sodium 133 mmol/L (137-145); Triglycerides 134 mg/dL (<150)
[2023-12-05 09:45] LABS: LDL Cholesterol Direct 92 mg/dL
[2023-12-05 10:05] LABS: Thyroid Stimulating Hormone 0.304 uIU/mL (0.465-4.680)
[2023-12-05 10:40] LABS: Vitamin D 25 Hydroxy 35.5 ng/mL
== END 2023-12-05 08:59 | disposition home or self-care (01) ==
PROVIDERS: PCP Emergency Medicine; Visit Provider Emergency Medicine
DX: E78.5 Hyperlipidemia, unspecified (principal); E03.9 Hypothyroidism, unspecified; E55.9 Vitamin D deficiency, unspecified
CPT/HCPCS: 36415; 80053; 80061; 82306; 84443

== ENCOUNTER 2024-11-20 08:51 | Day surgery (SDC) | payer OTHER, SELFPAY ==
[2024-11-14 10:37] VITALS: BMI 26.6
--- NOTE | 2024-11-20 06:54 | P.OP_ITS ---
Procedure Note - Detailed Date of Procedure 11/20/24 Pre-op Diagnosis Right Index Trigger Finger Post-op Diagnosis Same Procedure Performed right index finger a1 all release Surgeon Carli Boykin MD Senior Sales Operations Analyst kaykay gifford pa-c Anesthesia MAC Description of Procedure INFORMED CONSENT: The patient was seen and examined and marked in the pre-op area.? The patient signed the consent form. PROCEDURE IN DETAIL:The patient taken back to OR on the stretcher in supine position. Time out performed with anesthesia, surgeon and staff agreeing on patient's name site and surgery to be performed SCDs were placed on the lower extremities and inflated. A tourniquet was placed on {right} upper extremity and antibiotics given IV After anesthesia administered sedation I injected {3}cc 1%lido and 0.5% marcaine plain at the operative site The?{right upper extremity}?was prepped and draped in sterile fashion the??{right upper extremity} was? exsanguinated with Esmarch bandage and tourniquet inflated to 250mmHg I proceeded with making a longitudinal incision over the right index finger A1 all through skin and dermis with a 15 blade scalpel. Littler scissors were used to spread down through subcutaneous tissue to the A1 all. The A1 all was identified and initially incised with 15 blade scalpel. Littler scissors were used to spread above and below it proximally and distally completing the transection entirely. Ragnell retractors were used withdrawal the FDS and FDP tendons for inspection. The tendons were free of masses and synovitis and gliding smoothly in the sheath without triggering or crepitus. I irrigated with normal saline. Closure was done with 4-0 chromic. A dressing of xeroform, 4x4, jen, and saravanan bandage was applied after the tourniquet was let down noting the hand was warm and well perfused. The patient was then awaken from anesthesia and transferred to the recovery room in stable condition.? Complications - none EBL- 0cc Disposition - home in stable condition Kaykay Gifford PA-C was essential for positioning, retraction, closure and d ressing placement [facility] Billing Surgery - Charge Forward: Surgery Billing ([id number] for kaykay)
--- NOTE | 2024-11-20 06:54 | WPDHPUPDATE1 ---
History and Physical Update Update Date/Time: 11/20/24 06:54 Patient seen and examined in pre-operative holding area. No interval change in medical history or symptoms. Patient recalls previous discussion of benefits and alternatives to procedure. Continues to desire to proceed with right index finger a1 all release. Reviewed procedure, post-op expectations and risks including but not limited to bleeding, infection, injury to tendon/nerve/vessel, decreased hand function, stiffness, RSD, no change or worsening of symptoms. I discussed the possible use of assistants and their participation in the case. Patient stated understanding and signed the consent form wishing to proceed.
--- OUTSIDE RECORDS SUMMARY | 2024-11-20 08:59 | XMS_ITS | Clinical Summary ---
Author Organization [facility] [place] [address] Address [address] [place] [address] Care Team Providers Care Milk Tanker Driver Name Role Phone Deshawn Lopez MD Primary Care Provide r Allergies No known active allergies Medications metoprolol XL (TOPROL-XL) 100 mg 24 hr tabletIndications :Persistent atrial fibrillation (HCC) TAKE 1 & 1/2 (ONE & ONE-HALF) TABLETS BY MOUTH ONCE DAILY 135 tablet 2 5 Active Eliquis 5 mg tablet Take 1 tablet (5 mg total) by mouth every 12 (twelve) hours 180 tablet 3 5 09/16/19 26 Active losartan (COZAAR) 25 mg tablet Take 1 tablet by mouth once daily 90 tablet 3 5 Active Active Problems Problem Noted Date Diagnosed Date Varicose veins of both lower extremities with pa in 08/07/2022 Assessment & Plan (08/28/2022 10:49 AM CDT): Patient following up regarding bilateral lower extremity varicosities and after obtaining a reflux study. He would be a candidate for an EVLT of the right lower extremity along with stab phlebectomies. Discussed the procedure with the patient along with its potential risks. Discussed the patient with Dr. Kern. Patient will be scheduled for an EVLT with stab phlebectomies. Patient is agreeable wishes to proceed. Assessment & Plan (08/07/2022 2:10 PM CDT): I discussed the importance of continue compression therapy, I have written a prescription for new compression stockings. We will follow up in 2-3 weeks fine reflux community education specialist study pending this he may need a GSV ablation stab phlebectomies. Essential hypertension 08/07/2022 Assessment & Plan (08/07/2022 2:12 PM CDT): Stable continue losartan 25 mg. Elevated blood pressure reading 12/24/2021 Persistent atrial fibrillation 12/20/2021 Assessment & Plan (08/07/2022 2:12 PM CDT): Stable continue Eliquis. Chronic anticoagulation 12/20/2021 Dilated cardiomyopathy 12/20/2021 H/O CHF 12/20/2021 Encounters Date Type Department Care Team Description 09/15/2024 2:30 PM CDT Office Visit [facility] Cardiology [address] [facility] [address] [place] [address] Lorenzo Pagan MD Other persistent atrial fibrillation (HCC) from Last 3 Months Surgical History Surgery Date Site/Laterality Comments APPENDECTOMY Medical History Medical History Date Comments Arrhythmia Kidney stones Atrial fibrillation (HCC) Family History Medical History Relation Name Comments Heart failure Father Cancer Mother Relation Name Status Comments Brother Alive Father Mother Social History Tobacco Use Types Packs/Day Years Used Date Smoking Tobacco: Former Cigarettes Q uit: 04/23/2006 Smokeless Tobacco: Never Tobacco Cessation:Counseling Given: Not Answered AUDIT-C Answer Date Recorded Q1: How often do you have a drink containing alc ohol? Monthly or less 10/13/2021 Q2: How many drinks containi ng alcohol do you have on a typical day when you are drinking? 1 or 2 10/13/2021 Q3: How often do you have si x or more drinks on one occasion? 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 Gender Identity Not on file Sexual Orientation Not on file Obstetrics History Last Filed Vital Signs Vital Sign Reading Time Taken Comments Blood Pressure 116/72 09/15/2024 11:33 AM CDT Pulse 98 09/15/2024 11:33 AM CDT Temperature - - Respiratory Rate - - Oxygen Saturation 98% 09/15/2024 11:33 AM CDT Inhaled Oxygen Concentration - - Weight 85.7 kg (189 lb) 09/15/2024 11:33 AM CDT Height 177.8 cm (5' 10) 09/15/2024 11:33 AM CDT Body Mass Index 27.12 09/15/2024 11:33 AM CDT Plan of Treatment Health Maintenance Due Date Last Done Comments Depression Screening 1945 Fall Risk Assessment 1945 Hepatitis C Screening 1945 DTaP/Tdap/Td Vaccine (1 - Tdap) 1957 Hepatitis B Screening 1964 Pneumococcal vaccine 65+ (1 of 2 - PCV) 1965 Abdominal Aortic Aneurysm (AAA) Screen 11/02/2011 Well Visit 65+ 11/02/2011 Zoster Vaccine (2 of 3) 04/27/2014 03/02/2014 Influenza Vaccine (#1) 2024 Insurance [facility] Care Teams Milk Tanker Driver Relationship Specialty Start Date End Date Deshawn Lopez MD [address] [place] [address] PCP - General Emergency Medicine 09/09/21
[2024-11-20 09:19] VITALS: BP 142/97; PULSE 103; RESP 16; TEMP 36.8; O2SAT 100
[2024-11-20] MEDS: ACETAMINOPHEN 500 MG TABLET 1000 MG PO (09:25)
[2024-11-20] MEDS: LACTATED RINGERS 1,000 ML 30 ML IV CONT (09:33)
--- NOTE | 2024-11-20 10:28 | P.PNAN_ITS ---
Anes - Initial Pre Proc Eval Procedure: Operation Date: 11/20/24 11:00 Proposed Procedures p A-1 Romina Release Right Index Finger - Carli Boykin MD Date/Time: 11/20/24 10:28 Surgeon: Carli Boykin MD Pre Op Diagnosis: Right Index Trigger Finger Patient Data Age: 79 Gender: M Height: 1.8 m Weight: 85.8 kg Last Vital Signs Temp 98.3 F 11/20/24 09:19 Pulse 103 H 11/20/24 09:19 Resp 16 11/20/24 09:19 BP 142/97 H 11/20/24 09:19 Pulse Ox 100 11/20/24 09:19 O2 Del Method Room Air 11/20/24 09:19 Allergies Allergy/AdvReac Type Severity Reaction Status Date / Time No Known Allergies Allergy Verified 11/20/24 09:17 Home Medications ?Medication ?Instructions ?Recorded ?Confirmed ?Type losartan 50 mg tablet (Cozaar) 50 mg PO DAILY 30 days #30 tabs 09/15/21 11/20/24 Rx metoprolol tartrate 25 mg tablet 37.5 mg PO DAILY 07/1011/20/24 History Patient hx anesthesia problems: none Family hx anesthesia problems: none Results Review: All pre-operative results and documents have been reviewed as part of the pre- operative evaluation. [facility] Past Medical History Medical History Paroxysmal atrial fibrillation Vision abnormalities Skin yeast infection Skin tag Hypogonadism in male Hyperthyroidism Encounter for surgical aftercare following surgery on the digestive system Preoperative cardiovascular examination Upper abdominal pain Leukocytosis Elevated liver enzymes Gallstone pancreatitis Dehydration Kidney stones Chronic anticoagulation Paroxysmal atrial fibrillation Acute cholecystitis Acute pancreatitis Left knee injury Surgical History Surgical History S/P cholecystectomy lap syeda with IOC 12/07 History of appendectomy History of vasectomy History of colonoscopy with polypectomy Family History Family History Mother Family history of malignant neoplasm of uterus, Onset Age: 52 Patient's mother is Father Patient's father is , Onset Age: 84 Acute myocardial infarction, Onset Age: 84 Social History Social History Social History: Surrogate decision maker: Mikayla Lema, sister. Code status: Full code. Smoking packs per day: 1 Smoking cigarettes per day: 20.0 Years smoked: 25 Smoking pack-years: 25.00 Smoking status: Former smoker Tobacco type: cigarettes Second hand tobacco smoke exposure: Yes Smoking end date: 03/19/07 Alcohol intake: current Drinks per week: 2 Alcohol use details: Rare alcohol use in moderation. Substance use: former Substance use type: does not use Do You Feel Safe in your Home?: Yes Lack of Transportation: No Lack of Food: Never True Current Housing: I Have Housing Concerned About Future Housing: No Difficulty Paying Gas/Electric Bills: No Difficulty Paying for Meds: No Currently Unemployed: No Education: High School Diploma/GED Difficulty w/ Childcare or Family Care: No Living arrangements: alone Occupation/Education: retired Gender identity (if verbalized by the patient): Male Sexual Orientation (if Verbalized by the Patient): Straight or Heterosexual Spiritual care concerns: No Anes - Eval Final PreProcedure Day of Procedure 11/20/24 10:28 Heart: regular rate and rhythm Lungs: clear to auscultation Airway: Mallampati scale class II Neurological: alert and oriented Last oral intake: >/= 8 hours ASA classification: II Anesthetic plan: proceed Anesthesia type and monitoring: monitored anesthesia care Results Review: All pre-operative results and documents have been reviewed as part of the pre- operative evaluation. Informed Consent: The patient's anesthetic plan and its attendant risks and benefits were discussed with the patient/family/POA. Questions were solicited and answers provided to the satisfaction of the patient/family/POA.
[2024-11-20] MEDS: ceFAZolin SODIUM 2 GM/20 ML SW SYRINGE IV PUSH (11:07)
[2024-11-20] MEDS: BUPivacaine HCL 0.5% 10 ML AMP 5 ML INFILTRATE (11:25)
--- NOTE | 2024-11-20 11:25 | WPDANESEPPF ---
Anes - Initial Pre Proc Eval Procedure: Operation Date: 11/20/24 11:00 Proposed Procedures p A-1 Romina Release Right Index Finger - Carli Boykin MD Date/Time: 11/20/24 11:25 Surgeon: Carli Boykin MD Pre Op Diagnosis: Right Index Trigger Finger Patient Data Age: 79 Gender: M Height: 1.8 m Weight: 85.8 kg Last Vital Signs Temp 98.3 F 11/20/24 09:19 Pulse 103 H 11/20/24 09:19 Resp 16 11/20/24 09:19 BP 142/97 H 11/20/24 09:19 Pulse Ox 100 11/20/24 09:19 O2 Del Method Room Air 11/20/24 09:19 Allergies Allergy/AdvReac Type Severity Reaction Status Date / Time No Known Allergies Allergy Verified 11/20/24 09:17 Home Medications ?Medication ?Instructions ?Recorded ?Confirmed ?Type losartan 50 mg tablet (Cozaar) 50 mg PO DAILY 30 days #30 tabs 09/15/21 11/20/24 Rx metoprolol tartrate 25 mg tablet 37.5 mg PO DAILY 01/21/24 11/20/24 History tramadol 50 mg tablet 50 mg PO Q6H PRN pain #12 tabs 11/20/24 Rx Patient hx anesthesia problems: none Family hx anesthesia problems: none Results Review: All pre-operative results and documents have been reviewed as part of the pre-operative evaluation. [facility] Past Medical History Medical History Paroxysmal atrial fibrillation Vision abnormalities Skin yeast infection Skin tag Hypogonadism in male Hyperthyroidism Encounter for surgical aftercare following surgery on the digestive system Preoperative cardiovascular examination Upper abdominal pain Leukocytosis Elevated liver enzymes Gallstone pancreatitis Dehydration Kidney stones Chronic anticoagulation Paroxysmal atrial fibrillation Acute cholecystitis Acute pancreatitis Left knee injury Surgical History Surgical History S/P cholecystectomy lap syeda with IOC 12/07 History of appendectomy History of vasectomy History of colonoscopy with polypectomy Family History Family History Mother Family history of malignant neoplasm of uterus, Onset Age: 52 Patient's mother is Father Patient's father is , Onset Age: 84 Acute myocardial infarction, Onset Age: 84 Social History Social History Social History: Surrogate decision maker: Mikayla Lema, sister. Code status: Full code. Smoking packs per day: 1 Smoking cigarettes per day: 20.0 Years smoked: 25 Smoking pack-years: 25.00 Smoking status: Former smoker Tobacco type: cigarettes Second hand tobacco smoke exposure: Yes Smoking end date: 03/19/07 Alcohol intake: current Drinks per week: 2 Alcohol use details: Rare alcohol use in moderation. Substance use: former Substance use type: does not use Do You Feel Safe in your Home?: Yes Lack of Transportation: No Lack of Food: Never True Current Housing: I Have Housing Concerned About Future Housing: No Difficulty Paying Gas/Electric Bills: No Difficulty Paying for Meds: No Currently Unemployed: No Education: High School Diploma/GED Difficulty w/ Childcare or Family Care: No Living arrangements: alone Occupation/Education: retired Gender identity (if verbalized by the patient): Male Sexual Orientation (if Verbalized by the Patient): Straight or Heterosexual Spiritual care concerns: No Anes - Eval Final PreProcedure Day of Procedure 11/20/24 11:25 Heart: irregular rhythm Lungs: clear to auscultation Airway: Mallampati scale class II Neurological: alert and oriented Last oral intake: >/= 8 hours ASA classification: II Anesthetic plan: proceed Anesthesia type and monitoring: monitored anesthesia care Results Review: All pre-operative results and documents have been reviewed as part of the pre-operative evaluation. Informed Consent: The patient's anesthetic plan and its attendant risks and benefits were discussed with the patient/family/POA. Questions were solicited and answers provided to the satisfaction of the patient/family/POA.
[2024-11-20] MEDS: LIDOCAINE 1% LOCAL INJ 20 ML VIAL 5 ML INFILTRATE (11:26)
[2024-11-20 11:34] VITALS: BP 136/106; PULSE 90; RESP 17; O2SAT 99
[2024-11-20 11:44] VITALS: BP 130/81; PULSE 97; RESP 16; O2SAT 97
--- NOTE | 2024-11-20 11:45 | WPDANESPN ---
Anes - Prog Note Post-Op Date/Time: 11/20/24 11:45 Vital Signs: Last Vital Signs Temp 98.3 F 11/20/24 09:19 Pulse 90 11/20/24 11:34 Resp 17 11/20/24 11:34 BP 136/106 H 11/20/24 11:34 Pulse Ox 99 11/20/24 11:34 O2 Del Method Room Air 11/20/24 11:34 Pain Score (VAS): no Patient Feedback: Patient satisfied with anesthetic care.
[2024-11-20 11:54] VITALS: BP 121/87; PULSE 87; RESP 16; O2SAT 96
--- NOTE | 2024-11-20 12:00 | SUR.PHASEII ---
In post op recovery area anesthesiologist, Dr Jolley informs pt he was in Afib during procedure and asks pt is he takes an anticoagulant. Pt informs this RN and anesthesiologist that he has in fact been taking Eliquis for his Afib for a week or so. OR staff notified of this and SANJAY Avalos went to speak with pt. Per SANJAY Avalos pt can resume Eliquis tomorrow and she did recommend pt to make an appointment to see his harbour master. It was noted that when pt did his pre procedure phone call he did not inform RN that he was taking Eliquis.
== END 2024-11-20 12:21 | disposition home or self-care (01) ==
PROVIDERS: PCP Emergency Medicine; Visit Provider Plastic Surgery
PROC: (CPT 26055; principal; 2024-11-20 11:00)
DX: M65.321 Trigger finger, right index finger (principal)
CPT/HCPCS: 26055

== ENCOUNTER 2024-12-04 13:59 | Outpatient (CLI) | payer OTHER, SELFPAY ==
--- OUTSIDE RECORDS SUMMARY | 2024-12-04 14:03 | XMS_ITS | Clinical Summary ---
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
--- OUTSIDE RECORDS SUMMARY | 2024-12-04 14:03 | XMS_ITS | Clinical Summary ---
Author Organization [facility] Address [address] [place] [id number] Care Team Providers Care Sales Architect Name Role Phone Unavailable Primary Care Provider Unavailabl e Social History Tobacco Use Types Packs/Day Years Used Date Smoking Tobacco: Never Assessed Sex and Gender Information Value Date Recorded Sex Assigned at Not on file Legal Sex Male 4:19 PM CDT Gender Identity Not on file Sexual Orientation Not on file Plan of Treatment Health Maintenance Due Date Last Done Comments Hepatitis C 1963 DTaP, Tdap and Td Vaccines ( 1 - Tdap) 1965 Pneumococcal Vaccine: 50+ Ye ars (1 of 1 - PCV) 1996 Zoster Vaccines (1 of 2) 1996 RSV Immunization or 60+ Years (1 - 1-dose 75+ series) 2021 COVID-19 Vaccine ( - 2023-2 5 season) 2024 Meningococcal B Vaccine Aged Out No l onger eligible based on patient's age to complete this topic Meningococcal Vaccine Aged Out No murtaza nancy eligible based on patient's age to complete this topic RSV Immunizations Under 20 Months Aged Out No longer eligible based on patient's age to complete this topic
[2024-12-04 14:49] LABS: Alanine Aminotransferase 21 U/L (6-50); Albumin Level 4.3 g/dL (3.5-5.1); Alkaline Phosphatase 67 U/L (38-126); Anion Gap 5 mmol/L (4-12); Aspartate Amino Transferase 35 U/L (17-59); Bilirubin,Total 0.8 mg/dL (0.2-1.3); Blood Urea Nitrogen 28 mg/dL (9-20); Calcium 9.1 mg/dL (8.4-10.2); Carbon Dioxide 26 mmol/L (22-30); Chloride 106 mmol/L (98-107); Estimated Glomerular Filt Rate > 60; Glucose 79 mg/dL (65-110); Potassium 4.4 mmol/L (3.4-5.0); Sodium 137 mmol/L (137-145); Total Protein 7.5 g/dL (6.3-8.2)
[2024-12-04 15:25] LABS: Thyroid Stimulating Hormone 0.211 uIU/mL (0.465-4.680)
== END 2024-12-04 14:00 | disposition home or self-care (01) ==
LOC: ANHLAB 14:00
PROVIDERS: PCP Emergency Medicine; Visit Provider Emergency Medicine
DX: E55.9 Vitamin D deficiency, unspecified (principal); E78.5 Hyperlipidemia, unspecified; R53.83 Other fatigue
CPT/HCPCS: 36415; 80053; 82306; 84443